=== PATIENT | male | born 1985 | race American Indian/Alaskan Native ===

== ENCOUNTER 2016-04-30 19:07 | Inpatient (IN) | payer BC ==
[2016-04-30] MEDS ORDERED: Sodium Chloride 0.9% 1,000 ML IV ONE ×2 (20:42→20:43)
[2016-04-30] MEDS ORDERED: Sodium Chloride 0.9% 1,000 ML ONE (20:55)
--- NOTE | 2016-04-30 21:03 | C.PDOC ---
History Of Present Illness 31 year old male pt presents to the ER with general abdominal pain from ETOH abuse for the last 4 weeks. Pt states he was laid off from work 4 weeks ago and began drinking ETOH since. Pt notes occasional vomiting, but denies diarrhea, nausea, SOB, or any other complaints. Pt notes increased depression and suicidal ideation, but denies any other drug abuse. Time Seen by Provider: 04/30/16 20:22 Chief Complaint (Nursing): Substance Abuse History Per: Patient History/Exam Limitations: no limitations Onset/Duration Of Symptoms: Days Current Symptoms Are (Timing): Still Present Suicide/Self Injury Attempted (Context): None Modifying Factor(s): Alcohol Severity: Mild Associated Symptoms: Suicidal Thoughts Past Medical History Reviewed: Historical Data, Nursing Documentation, Vital Signs Vital Signs: Last Vital Signs Temp 98.1 F 04/30/16 22:25 Pulse 96 H 04/30/16 22:25 Resp 18 04/30/16 22:25 BP 117/76 04/30/16 22:25 Pulse Ox 95 04/30/16 22:25 - Medical History PMH: Bronchitis, Diabetes, Emphysema, HTN, Pancreatitis Surgical History: No Surg Hx - [facility] DETOXIFICATION SERVICES FOR SUBSTANCE ABUSE TREATMENT (02/22/15) Family History: States: Unknown Family Hx - Social History Hx Tobacco Use: Yes Hx Alcohol Use: Yes Hx Substance Use: No - Immunization History Hx Tetanus Toxoid Vaccination: Yes Hx Influenza Vaccination: Yes Hx Pneumococcal Vaccination: No Review Of Systems Except As Marked, All Systems Reviewed And Found Negative. Respiratory: Negative for: Shortness of Breath Gastrointestinal: Positive for: Vomiting (Occasional), Abdominal Pain. Negative for: Nausea, Diarrhea Psych: Positive for: Suicidal ideation Physical Exam - Physical Exam Appears: Non-toxic, No Acute Distress Skin: Warm, Dry Head: Atraumatic, Normacephalic Eye(s): bilateral: Normal Inspection Chest: Symmetrical Cardiovascular: Rhythm Regular, No Murmur Respiratory: Normal Breath Sounds, No Rales, No Rhonchi, No Wheezing Gastrointestinal/Abdominal: Tenderness (Mild generalized abdominal tenderness), No Guarding, No Rebound Neurological/Psych: Oriented x3, Normal Speech, Normal Cognition Gait: Steady ED Course And Treatment - Laboratory Results Result Diagrams: 04/30/16 20:52 04/30/16 20:52 O2 Sat by Pulse Oximetry: 98 Pulse Ox Interpretation: Normal Progress Note: Medicated with pepcid zofran and fluids Medical Decision Making Medical Decision Making: Plan: -Labs -Pepcid -IV fluids -Zofran -Psychiatric consultation requested however will not see pt until alcohol is "down" Pt has mildly elevated lft's and lipase, but soft abd and tolerated fluids. Pt likely does not need admission for these labs. Disposition - Disposition Disposition Time: 01:31 Condition: FAIR - Clinical Impression Clinical Impression: Alcohol intoxication, Depression - Scribe Statement The provider has reviewed the documentation as recorded by the Scribe Jess telles All medical record entries made by the Scribe were at my direction and personally dictated by me. I have reviewed the chart and agree that the record accurately reflects my personal performance of the history, physical exam, medical decision making, and the department course for this patient. I have also personally directed, reviewed, and agree with the discharge instructions and disposition. Physician Patient Turnover Patient Signed Over To: Vianey Reid Handoff Comments: Pending lowering alcohol for PES evaluation
[2016-04-30 21:07] LABS: BASO # 0.1 K/uL (0.0-0.2); BASO % 1.5 % (0.0-2.0); EOS % 0.3 % (0.0-4.0); HEMATOCRIT 40.4 % (35.0-51.0); LYMPH # 1.2 K/uL (1.0-4.3); LYMPH % 30.7 % (20.0-40.0); MEAN CELL VOLUME 94.3 fL (80.0-94.0); MEAN CORPUSCULAR HEMOGLOBIN 31.8 pg (27.0-31.0); MEAN CORPUSCULAR HGB CONC 33.8 g/dL (33.0-37.0); MEAN PLATELET VOLUME 8.5 fL (7.2-11.7); MONO # 0.5 K/uL (0.0-0.8); MONO % 12.5 % (0.0-10.0); NRBC % 0.1 % (0.0-2.0); WHITE BLOOD COUNT 3.8 K/uL (4.8-10.8)
[2016-04-30 21:08] LABS: CHLORIDE 93 mmol/L (98-107)
[2016-04-30 21:09] LABS: SODIUM 141 mmol/L (132-148)
[2016-04-30 21:11] LABS: ALB/GLOB RATIO 1.3 (1.0-2.1); ALKALINE PHOSPHATASE 93 U/L (38-126); AST/SGOT 482 U/L (17-59); BILIRUBIN,TOTAL 0.9 mg/dL (0.2-1.3); BLOOD UREA NITROGEN 9 mg/dL (9-20); CARBON DIOXIDE 26 mmol/L (22-30); GFR AFRICAN-AMERICAN > 60; TOTAL PROTEIN 7.6 g/dL (6.3-8.3)
[2016-04-30 21:12] LABS: ALT/SGPT 313 U/L (21-72); CALCIUM 8.8 mg/dl (8.6-10.4); GLUCOSE,RANDOM 145 mg/dL (75-110)
[2016-04-30 21:23] LABS: ALCOHOL SERUM 330 mg/dl (0-10)
[2016-05-01] MEDS ORDERED: Iodixanol 320 MG/ML 100 ML BOTTLE IV ONE (02:51)
[2016-05-01] MEDS ORDERED: HYDROmorphone 1 mg/ml ISec IVP PRN (05:24)
[2016-05-01] MEDS: Dextrose 5%/0.45% NS 1,000 ML IV SCH ×4 (05:27→21:13)
[2016-05-01 05:40] LABS: RBC URINE 4 /hpf (0-3); URINE BILIRUBIN NEGATIVE (NEGATIVE); URINE BLOOD 1+ (NEGATIVE); URINE COLOR Yellow (YELLOW); URINE GLUCOSE (UA) NORMAL (Normal); URINE KETONE TRACE mg/dL (NEGATIVE); URINE LEUKOCYTE ESTERASE NEG Leu/uL (Negative); URINE PROTEIN 2+ mg/dL (NEGATIVE); WBC URINE < 1 /hpf (0-5)
--- NOTE | 2016-05-01 09:00 | CT ---
PROCEDURE: CT Abdomen and Pelvis with contrast HISTORY: pain, r/o pancreatitis COMPARISON: 07/26/2012 TECHNIQUE: Contrast dose: 100 mL. Radiation dose: Total exam DLP = 301.17 mGy-cm. FINDINGS: LOWER THORAX: Punctate calcifications in the right lung base. This could represent small granulomas. LIVER: Geographic hypoattenuation of the liver, likely consistent with hepatic steatosis. GALLBLADDER AND BILE DUCTS: Unremarkable. PANCREAS: Heterogeneous pancreas with surrounding stranding and fluid. No abscess. SPLEEN: Unremarkable. ADRENALS: Unremarkable. No mass. KIDNEYS AND URETERS: Unremarkable. No hydronephrosis. No solid mass. VASCULATURE: Unremarkable. No aortic aneurysm. BOWEL: Unremarkable. No obstruction. No gross mural thickening. Moderate to severe stool burden in the colon suggestive of constipation. APPENDIX: Normal appendix. PERITONEUM: Small amount of fluid seen in the pelvis on along the left paracolic gutter. LYMPH NODES: Scattered small lymph nodes in the retroperitoneum. BLADDER: Unremarkable. REPRODUCTIVE: Unremarkable. BONES: No acute fracture. OTHER FINDINGS: None. IMPRESSION: Heterogeneous pancreas with surrounding fluid and stranding, consistent with acute pancreatitis. Correlation with serum amylase and lipase levels recommended. No peripancreatic abscess. Small amount of fluid in the pelvis and along the left pericolic gutter noted. Hepatic steatosis. Moderate to severe stool burden in the colon. Please note that this report is in general agreement with the preliminary report provided by Jennifer.
[2016-05-01] MEDS: Enoxaparin 40 mg Syringe SC SCH (09:05)
--- NOTE | 2016-05-01 09:19 | CP.PCM.PN ---
Subjective - Date & Time of Evaluation Date of Evaluation: 05/01/16 Time of Evaluation: 10:00 - Subjective Subjective: Patient seen and examined in room. He is uncomfortable and shaking. He is asking for some medication for etoh withdrawl. He has a history of etoh abuse. He had relapsed about 2 months ago when he was let go from work. He has been drinking Vodka till he passed out everyday since then. He has been though etoh detox before. He is complaing of abdominal pain, nausea, but no vomiting. Objective - Vital Signs/Intake and Output Vital Signs (last 24 hours): Temp Pulse Resp BP Pulse Ox 98.3 F 73 18 131/71 95 05/01/16 05:52 05/01/16 05:52 05/01/16 06:03 05/01/16 05:52 05/01/16 05:52 - Medications Medications: Current Medications Enoxaparin Sodium (Lovenox) 40 mg SC DAILY [facility] Last Admin: 05/01/16 09:05 Dose: 40 mg Hydromorphone HCl (Dilaudid) 2 mg IVP Q4H PRN PRN Reason: pain Dextrose/Sodium Chloride (Dextrose 5%/0.45% Ns 1000 Ml) 1,000 mls @ 125 mls/hr IV .Q8H [facility] Last Admin: 05/01/16 05:27 Dose: 125 mls/hr Lorazepam (Ativan) 0 mg IVP Q6H PRN; Taper PRN Reason: Anxiety Stop: 05/06/16 18:15 Pantoprazole Sodium (Protonix Inj) 40 mg IVP DAILY [facility] Last Admin: 05/01/16 09:05 Dose: 40 mg - Constitutional Appears: In Acute Distress, Unkempt - Head Exam Head Exam: NORMAL INSPECTION - Eye Exam Eye Exam: Normal appearance, Nystagmus, PERRL. absent: Scleral icterus Pupil Exam: NORMAL ACCOMODATION - ENT Exam ENT Exam: Normal Exam - Neck Exam Neck Exam: Normal Inspection - Respiratory Exam Respiratory Exam: Clear to Ausculation Bilateral. absent: Rhonchi, Wheezes - Cardiovascular Exam Cardiovascular Exam: REGULAR RHYTHM, RRR, +S1, +S2. absent: Gallop, Rubs - GI/Abdominal Exam GI & Abdominal Exam: Soft, Normal Bowel Sounds. absent: Tenderness - Extremities Exam Extremities Exam: Normal Inspection. absent: Pedal Edema - Psychiatric Exam Psychiatric exam: Anxious, Depressed - Skin Skin Exam: Dry, Intact Assessment and Plan (1) Acute alcoholic pancreatitis Assessment & Plan: Patient admitted yesterday for pancreatitis and etoh withdrawl and use disorder. He is NPO still, GI consulted. CT of the abdomen and pelvis shows evidence for pancreatits. Lipase on admission over 1500 Follow up GI consult, given pain medication if needed. Status: Acute (2) Alcohol dependence Assessment & Plan: Psych consulted, see Dr. Harrington's note: CIWA protocol, Ativan taper and Ativan given prn thiamine and folic acid will be started. Monitor for signs of withdrawl and monitor his electrolytes as well. Status: Acute (3) Elevated LFTs Assessment & Plan: I have ordered Hepatits panel and will also order HIV Status: Acute (4) Prophylactic measure Assessment & Plan: Lovenox and protonix Status: Acute
[2016-05-01 14:26] LABS: BASO # 0.1 K/uL (0.0-0.2); BASO % 1.1 % (0.0-2.0); EOS % 0.3 % (0.0-4.0); HEMATOCRIT 38.2 % (35.0-51.0); LYMPH # 1.1 K/uL (1.0-4.3); LYMPH % 25.5 % (20.0-40.0); MEAN CELL VOLUME 94.3 fL (80.0-94.0); MEAN CORPUSCULAR HEMOGLOBIN 31.4 pg (27.0-31.0); MEAN CORPUSCULAR HGB CONC 33.3 g/dL (33.0-37.0); MEAN PLATELET VOLUME 8.6 fL (7.2-11.7); MONO # 0.6 K/uL (0.0-0.8); MONO % 12.6 % (0.0-10.0); RED CELL DISTRIBUTION WIDTH 15.5 % (11.5-14.5); WHITE BLOOD COUNT 4.5 K/uL (4.8-10.8)
[2016-05-01] MEDS ORDERED: Peg-Electrolyte Oral Soln 4L (Golytely) PO ONE (14:30)
[2016-05-01 14:38] LABS: CHLORIDE 93 mmol/L (98-107)
[2016-05-01 14:39] LABS: POTASSIUM 3.8 mmol/L (3.6-5.2); SODIUM 135 mmol/L (132-148)
[2016-05-01 14:41] LABS: ALB/GLOB RATIO 1.3 (1.0-2.1); AST/SGOT 488 U/L (17-59); BILIRUBIN,TOTAL 1.7 mg/dL (0.2-1.3); CARBON DIOXIDE 28 mmol/L (22-30); GFR AFRICAN-AMERICAN > 60; TOTAL PROTEIN 7.5 g/dL (6.3-8.3)
[2016-05-01 14:42] LABS: ALKALINE PHOSPHATASE 99 U/L (38-126); ALT/SGPT 308 U/L (21-72); BLOOD UREA NITROGEN 9 mg/dL (9-20); CALCIUM 9.3 mg/dl (8.6-10.4); GLUCOSE,RANDOM 165 mg/dL (75-110); MAGNESIUM 1.6 mg/dL (1.6-2.3); PHOSPHOROUS 3.9 mg/dL (2.5-4.5)
[2016-05-01] MEDS ORDERED: Bisacodyl 5mg EC Tab PO ONE (17:00)
--- NOTE | 2016-05-01 17:36 | PCM.PSYCH ---
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 Today patient was consulted because of history of alcohol abuse and depressed mood. Patient states that he has a long history of drinking. Since past few months he is drinking heavily. The patient reports of drinking 2-5 pints of vodka on a daily basis. Yesterday he consumed 2 pints of vodka, started developing abdominal pain and shakes, so he came to the hospital to get help. Patient reports of withdrawal symptoms including shakes, sweating, anxiety and headaches. Patient reports depressed mood, poor sleep and poor appetite. He also reports at times feelings of hopelessness but denies any suicidal ideation or homicidal ideation. He denies any racing of thoughts or flight of ideas. He also denies any auditory or visual hallucinations or any psychotic symptoms. Denies any other substance abuse. Past medical history h/o Pancreatitis, h/o bronchitis Current Medications: Active Medications Generic Name Dose Route Start Last Admin Trade Name Freq PRN Reason Stop Dose Admin Enoxaparin Sodium 40 mg 05/01/16 10:00 05/01/16 09:05 Lovenox SC 40 mg DAILY [facility] Administration Hydromorphone HCl 2 mg 05/01/16 05:24 05/01/16 13:27 Dilaudid IVP 2 mg Q4H PRN Administration pain Dextrose/Sodium Chloride 1,000 mls @ 125 mls/hr 05/01/16 05:30 05/01/16 13:31 Dextrose 5%/0.45% Ns 1000 Ml IV 125 mls/hr .Q8H [facility]W Administration Lorazepam 2 mg 05/01/16 11:54 05/01/16 16:31 Ativan IVP 05/06/16 11:55 2 mg Q6H PRN Administration Rigors Metoclopramide HCl 5 mg 05/01/16 16:30 05/01/16 16:25 Reglan IVP 5 mg ACHS [facility]THEW Administration Pantoprazole Sodium 40 mg 05/01/16 10:00 05/01/16 09:05 Protonix Inj IVP 40 mg DAILY [facility] Administration Past Psychiatric History - Past Psychiatric History Previous Treatment History: None Pertinent Medical Hx (Current Medical&Sleep Prob, Allergies): Allergies Allergy/AdvReac Type Severity Reaction Status Date / Time No Known Allergies Allergy Verified 04/30/16 19:27 Melatonin/Pyridoxine [Melatonin Extra Strength 5 mg-1 mg] 1 tab PO DAILY Review of Systems - Review of Systems All systems: reviewed and no additional remarkable complaints except - Psychiatric Psychiatric: Anxiety, Depression. absent: Auditory Hallucinations, Suicidal Ideation, Visual Hallucinations Mental Status Examination - Personal Presentation Personal Presentation: Looks stated age - Affect Affect: Constricted, Depressed - Motor Activity Motor Activity: Calm - Reliability in Providing Information Reliability in Providing Information: Good - Speech Speech: Organized - Mood Mood: Depressed, Anxious - Formal Thought Process Formal Thought Process: No Impairment - Obsessions/Compulsions Obsessions: No Compulsions: No - Cognitive Functions Orientation: Person, Place, Situation, Time Sensorium: Alert Attention/Concentration: Attentive Abstract Thinking: [place] Estimate of Intelligence: Below average Judgement: Imparied, as evidence by: Poor judgement, Intact, as evidence by: Insight regarding need for hospitalization - Risk Risk: Withdrawal, Diminished functioning - Strength & Assets Inventory Strength & Assets Inventory: Intelligence, Family support DSM 5 DX - DSM 5 DSM 5 Diagnosis: Alcohol use disorder severe Alcohol withdrawal uncomplicated Major depressive disorder recurrent moderate - Recommended/Plan of Treatment Treatment Recommendations and Plan of Treatment: Alcohol use disorder severe CBT Psychoeducation Supportive therapy, individual therapy Use TX for abstinence Alcohol withdrawal uncomplicated CBT Psychoeducation Supportive therapy, individual therapy Ativan when necessary Start Ativan taper Start folic acid/thiamine/multivitamin Major depressive disorder recurrent moderate CBT Psychoeducation Supportive therapy, individual therapy Start Zoloft 50 mg PO daily Start Trazodone 50 mg PO Q HS - Smoking Cessation Smoking Cessation Initiated: No
[2016-05-02] MEDS ORDERED: Dextrose 5%/0.9% NS 1,000 ML IV ONE (08:50)
[2016-05-02] MEDS ORDERED: Propofol 10 mg/ml Inj (20 ML) ONE ×2 (08:55→08:56)
[2016-05-02] MEDS ORDERED: Midazolam 2 MG/2 ML VIAL ONE (08:55)
[2016-05-02] MEDS ORDERED: Dextrose 5%/0.45% NS 1,000 ML IV ONE (09:13)
--- NOTE | 2016-05-02 09:54 | CON ---
DATE: 05/01/[address] Joby Santana to Dr. Violet Winters. I was called for GI consultation by the admitting MD. The patient is seen and fully examined at 04/09. All the available lab and radiology study results, current and previous medication list, cur rent and the previous medical events, allergies to medication lists were reviewed and the case was di scussed at length with the admitting medical team. HISTORY OF PRESENT ILLNESS: This is a 31-year-old male with a known history of alcoholism, was admit elizabeth to the hospital through the Emergency Room with the complaint of severe abdominal pain, fecal ret ention, severe constipation, postprandial abdominal distention with intermittent periods of rectal bl eeding and poor oral intake recently. The patient also experienced recent history of mild body weight loss. PAST MEDICAL HISTORY Including but not limited to: 1. Bronchitis. 2. Hypertension. 3. Diabetes mellitus. 4. Emphysema. 5. Peptic ulcer disease. 6. Previous episodes of pancreatitis. FAMILY HISTORY: Unknown. SOCIAL HISTORY: Positive for cigarette smoking, excessive alcohol intake. ALLERGY TO MEDICATION: Unknown. LABORATORY DATA: After being admitted to the hospital, the patient initially was found to have low w cecy blood cells and today, the day of consultation, white blood cells with 4.5 with subsequent drop of hemoglobin from 13.6, to 12.7, but with normal platelet count with elevated blood glucose level of 165 with total bilirubin 1.7 with increased AST to 488 and ALT to 308 with excessive increase of lip ase to 1581 with alcohol quantitative was 330. The patient had abdominal and pelvic CAT scan, report of films is seen with evidence of acute pancrea titis with moderate to severe stool retention in the colon. PHYSICAL EXAMINATION: GENERAL: A 31-year-old male, appeared to be more awake, alert, oriented. VITAL SIGNS: Afebrile with a pulse of 84, respiratory rate 20-22, blood pressure of 128/64. HEENT: Showed pale, dry oral mucoid membrane. Mild icteric sclerae. LYMPH NODES: No lymphadenitis or lymphadenopathy. LUNGS: Few scattered crepitation. Decreased air entry at bases. HEART: Positive S1 and S2 with increased rate mildly. ABDOMEN: Soft with diffuse tenderness and slight distention as well as small amount of ascites. No mass or organomegaly. No rebound tenderness or guarding. RECTAL: Positive tone, positive trace of fresh blood. EXTREMITIES: Without significant edema, clubbing or cyanosis. NEUROLOGIC: No reported new neurological deficit, sensory or motor. IMPRESSION: 1. Rectal bleeding with subsequent drop of hemoglobin and hematocrit with underlying diagnosis of ga strointestinal bleeding, upper versus lower. 2. Change of bowel movement habit with severe constipation of unclear etiology. 3. Acute pancreatitis, most likely alcohol induced, to rule out possible biliary pancreatitis, less likely. 4. Abnormal liver function tests secondary to above. 5. Known history of hypertension, diabetes mellitus, emphysema with bronchitis as well as previous h istory of pancreatitis. SUGGESTION: 1. Continue current management. 2. Cancer markers. 3. Endoscopic evaluation of the GI tract when the patient is more stable clinically. Thank you for letting me participate in your patient's case management and further evaluation to tona barrios. 1. Flagyl IV. 2. Proton pump inhibitors. 3. Reglan IV. 4. Repeat serum lipase and amylase level. Joby Santana MD cc: 14 TT: 05/02/2016 09:53:43 Confirmation # [id number] Dictation # [id number] gerard
[2016-05-02 11:28] LABS: MONO # 0.5 K/uL (0.0-0.8)
[2016-05-02 11:38] LABS: BASO % 0.8 % (0.0-2.0); EOS % 0.2 % (0.0-4.0); LYMPH # 0.8 K/uL (1.0-4.3); LYMPH % 22.2 % (20.0-40.0); MEAN CELL VOLUME 94.8 fL (80.0-94.0); MEAN CORPUSCULAR HEMOGLOBIN 31.1 pg (27.0-31.0); MEAN CORPUSCULAR HGB CONC 32.8 g/dL (33.0-37.0); MEAN PLATELET VOLUME 9.4 fL (7.2-11.7); NRBC % 0.2 % (0.0-2.0); WHITE BLOOD COUNT 3.5 K/uL (4.8-10.8)
[2016-05-02 11:51] LABS: CHLORIDE 89 mmol/L (98-107); POTASSIUM 3.5 mmol/L (3.6-5.2); SODIUM 132 mmol/L (132-148)
[2016-05-02 11:53] LABS: ALB/GLOB RATIO 1.3 (1.0-2.1); ALKALINE PHOSPHATASE 101 U/L (38-126); AST/SGOT 426 U/L (17-59); BILIRUBIN,TOTAL 1.4 mg/dL (0.2-1.3); CARBON DIOXIDE 27 mmol/L (22-30); GFR AFRICAN-AMERICAN > 60; TOTAL PROTEIN 7.3 g/dL (6.3-8.3)
[2016-05-02 11:54] LABS: ALT/SGPT 289 U/L (21-72); BLOOD UREA NITROGEN 6 mg/dL (9-20); CALCIUM 9.3 mg/dl (8.6-10.4); GLUCOSE,RANDOM 224 mg/dL (75-110); MAGNESIUM 1.6 mg/dL (1.6-2.3)
[2016-05-02] MEDS: Enoxaparin 40 mg Syringe SC SCH (12:24)
[2016-05-02] MEDS: Multiple Vitamins Tab PO SCH (12:25)
[2016-05-02] MEDS ORDERED: Potassium Chloride 20 mEq ER Tab PO ONE (13:00)
[2016-05-02] MEDS: Dextrose 5%/0.45% NS 1,000 ML IV SCH ×2 (13:34→16:06)
[2016-05-02] MEDS: Albuterol-Ipratrop 3 mg / 0.5 (3 ml) UD INH SCH (14:07)
[2016-05-03] MEDS ORDERED: Aluminum Hydroxide/Magnesium Hydroxide Susp (30 mL) PO PRN (00:01)
[2016-05-03] MEDS: Dextrose 5%/0.45% NS 1,000 ML IV SCH ×2 (03:15→15:30)
[2016-05-03] MEDS: Albuterol-Ipratrop 3 mg / 0.5 (3 ml) UD INH SCH ×5 (04:25→19:22)
[2016-05-03 07:21] LABS: AMYLASE 148 U/L (30-110)
[2016-05-03] MEDS: Multiple Vitamins Tab PO SCH (09:41)
[2016-05-03] MEDS: Enoxaparin 40 mg Syringe SC SCH (10:59)
[2016-05-03] MEDS ORDERED: Peg-Electrolyte Oral Soln 4L (Golytely) PO ONE (11:00)
--- NOTE | 2016-05-03 11:18 | PN ---
DATE: 05/03/2016 LOCATION: 550, bed A. SUBJECTIVE: This is a 31-year-old male seen and examined in rounds, post-colonoscopy yesterday for r epeat colonoscopy at a.m. due to retained fecal material and fecal impaction, had been complaining of slight generalized weakness with intermittent periods of mild wheezing, disappeared completely this morning. No reported active bleeding. The entire chart is reviewed, including but not limited to th e most recent lab and radiology study results, current and previous medication list, current and the previous medical events have discussed with the staff at length on the floor and the patient had rece nt PT and PTT were reported to be normal, but still has low potassium and low chloride with increased blood glucose level to 270 and mildly elevated total bilirubin with increased AST more than ALT steven cative of alcoholic liver disease. It has to be mentioned that the patient's CEA level excessively e levated to 43 with increased CA 19-9 to 185 raising the question of possible neoplastic lesion. Amyl ase level today is still elevated to 148 with lipase still elevated to . PHYSICAL EXAMINATION: GENERAL: A 31-year-old male, awake, alert, oriented and somewhat tolerating the liquid diet. VITAL SIGNS: Afebrile with heart rate of 72, respiratory rate 20-22 with blood pressure of 148/80. HEENT: Showed pale, dry oral mucoid membrane. Nonicteric sclerae. LUNGS: Few scattered crepitation, decreased air entry at bases. HEART: Positive S1 and S2. ABDOMEN: Soft. Bowel sounds are present with mild generalized tenderness. No mass or organomegaly. No rebound tenderness or guarding, but with abdominal distention. EXTREMITIES: Without significant edema, clubbing or cyanosis. NEUROLOGIC: No new reported neurological deficits, sensory or motor. IMPRESSION: 1. Acute pancreatitis, most likely alcohol induced. 2. Elevated cancer markers to rule out occult gastrointestinal malignancy. 3. Fecal impaction, disimpaction performed with patient for repeat colonoscopy after adequate prepar ation. 4. Peptic ulcer disease with possible diabetic gastroparesis. 5. Electrolyte imbalance with hypokalemia, most likely secondary to above. SUGGESTIONS: 1. Continue current management. 2. Add potassium IV. 3. Repeat colonoscopy for a.m. Due to the patient's persistent abnormal liver function test, MRCP to be kept in mind. Joby Santana MD cc: 14 TT: 05/03/2016 11:17:49 Confirmation # [id number] Dictation # [id number] an
[2016-05-03] MEDS ORDERED: (Novolog) Insulin Aspart, Recombinant 100 u/ml 10 ml vial SC SCH (16:30)
[2016-05-03] MEDS ORDERED: Bisacodyl 5mg EC Tab PO ONE (17:00)
[2016-05-03 23:50] VITALS: RESP 20
[2016-05-04] MEDS: Albuterol-Ipratrop 3 mg / 0.5 (3 ml) UD INH SCH ×3 (01:16→14:01)
[2016-05-04] MEDS: Dextrose 5%/0.45% NS 1,000 ML IV SCH (03:15)
[2016-05-04] MEDS: (Novolog) Insulin Aspart, Recombinant 100 u/ml 10 ml vial SC SCH ×3 (08:19→17:54)
--- NOTE | 2016-05-04 09:10 | HP ---
A 31-year-old man admitted to the hospital with chief complaint of severe abdominal pain, alcohol int oxication, weakness, fatigue. The patient works ____ history of alcohol problem on and off for the l ast few years. PHYSICAL EXAMINATION: GENERAL: The patient is awake, alert. VITAL SIGNS: Temperature 98, pulse 90. HEENT: Within normal limits. NECK: Supple. CHEST: Symmetrical. HEART: Regular. ABDOMEN: Soft. EXTREMITIES: No edema. The patient has tremors of the extremities. The patient is here for alcoholic pancreatitis, ____ possible ____ withdrawal. At this point, patien t to get bed rest, IV fluids, supportive care, pain medication. Violet Winters MD cc: [id number] TT: 05/01/2016 12:12:37 [place]
[2016-05-04 09:14] LABS: BASO % 0.9 % (0.0-2.0); EOS % 0.3 % (0.0-4.0); HEMATOCRIT 37.9 % (35.0-51.0); LYMPH # 0.8 K/uL (1.0-4.3); LYMPH % 24.4 % (20.0-40.0); MEAN CELL VOLUME 94.9 fL (80.0-94.0); MEAN CORPUSCULAR HEMOGLOBIN 31.8 pg (27.0-31.0); MEAN CORPUSCULAR HGB CONC 33.5 g/dL (33.0-37.0); MONO # 0.5 K/uL (0.0-0.8); MONO % 15.1 % (0.0-10.0); NRBC % 0.1 % (0.0-2.0); RED CELL DISTRIBUTION WIDTH 15.3 % (11.5-14.5); WHITE BLOOD COUNT 3.3 K/uL (4.8-10.8)
[2016-05-04 09:21] LABS: CHLORIDE 92 mmol/L (98-107); POTASSIUM 3.6 mmol/L (3.6-5.2); SODIUM 136 mmol/L (132-148)
[2016-05-04 09:23] LABS: GFR AFRICAN-AMERICAN > 60
[2016-05-04 09:24] LABS: ALB/GLOB RATIO 1.3 (1.0-2.1); ALKALINE PHOSPHATASE 96 U/L (38-126); ALT/SGPT 302 U/L (21-72); AST/SGOT 367 U/L (17-59); BILIRUBIN,TOTAL 1.2 mg/dL (0.2-1.3); BLOOD UREA NITROGEN 3 mg/dL (9-20); CALCIUM 9.2 mg/dl (8.6-10.4); CARBON DIOXIDE 29 mmol/L (22-30); GLUCOSE,RANDOM 172 mg/dL (75-110); TOTAL PROTEIN 6.9 g/dL (6.3-8.3)
[2016-05-04] MEDS: Multiple Vitamins Tab PO SCH (09:57)
--- NOTE | 2016-05-04 09:59 | CP.PCM.PN ---
Subjective - Date & Time of Evaluation Date of Evaluation: 05/04/16 Time of Evaluation: 07:40 - Subjective Subjective: PGY2 Medicine Note - Dr. Brewer's Service: Patient seen and examined at bedside this AM. Patient reports mild abdominal pain. Nausea, vomiting and diarrhea have resolved. Patient plans to go to AA meetings by his house in [place]. Objective - Vital Signs/Intake and Output Vital Signs (last 24 hours): Temp Pulse Resp BP Pulse Ox 98.4 F 70 20 130/78 100 05/03/16 23:49 05/04/16 00:00 05/03/16 23:49 05/03/16 23:49 05/03/16 23:49 - Medications Medications: Current Medications Al Hydrox/Mg Hydrox/Simethicone (Maalox 30 Ml) 30 ml PO BID PRN PRN Reason: Indigestion / Heartburn Last Admin: 05/03/16 00:06 Dose: 30 ml Albuterol/Ipratropium (Duoneb 3 Mg/0.5 Mg (3 Ml) Ud) 3 ml INH RQ6 [facility]W Last Admin: 05/04/16 08:27 Dose: 3 ml Enoxaparin Sodium (Lovenox) 40 mg SC DAILY [facility] Last Admin: 05/03/16 10:59 Dose: Not Given Folic Acid (Folic Acid) 1 mg PO DAILY [facility] Last Admin: 05/03/16 09:41 Dose: 1 mg Hydromorphone HCl (Dilaudid) 2 mg IVP Q4H PRN PRN Reason: pain Dextrose/Sodium Chloride (Dextrose 5%/0.45% Ns 1000 Ml) 1,000 mls @ 80 mls/hr IV .[id number] [facility] Last Admin: 05/04/16 03:15 Dose: Not Given Insulin Aspart (Novolog) 0 unit SC ACHS [facility]THEW PRN Reason: Protocol Last Admin: 05/04/16 08:19 Dose: Not Given Lorazepam (Ativan) 2 mg IVP Q6H PRN PRN Reason: Rigors Stop: 05/06/16 11:55 Last Admin: 05/03/16 00:03 Dose: 2 mg Lorazepam (Ativan) 1 mg PO Q6 [facility]W PRN Reason: Taper Stop: 05/06/16 17:44 Last Admin: 05/04/16 05:50 Dose: 1 mg Metoclopramide HCl (Reglan) 5 mg IVP ACHS [facility] Last Admin: 05/03/16 21:35 Dose: 5 mg Multivitamins (Hexavitamin) 1 tab PO DAILY [facility] Last Admin: 05/03/16 09:41 Dose: 1 tab Pantoprazole Sodium (Protonix Inj) 40 mg IVP DAILY [facility] Last Admin: 05/03/16 09:41 Dose: 40 mg Sertraline HCl (Zoloft) 50 mg PO DAILY [facility] Last Admin: 05/03/16 09:41 Dose: 50 mg Thiamine HCl (Vitamin B1 Tab) 100 mg PO DAILY [facility] Last Admin: 05/03/16 09:41 Dose: 100 mg Trazodone HCl (Desyrel) 50 mg PO HS PRN PRN Reason: Insomnia Last Admin: 05/03/16 21:35 Dose: 50 mg - Labs Labs: 05/04/16 09:09 05/04/16 09:09 PT 11.7 SECONDS (9.7-12.2) 05/03/16 06:58 INR 1.0 05/03/16 06:58 APTT 31 SECONDS (21-34) 05/03/16 06:58 - Constitutional Appears: Non-toxic, No Acute Distress - Head Exam Head Exam: NORMAL INSPECTION - Eye Exam Eye Exam: EOMI - ENT Exam ENT Exam: Mucous Membranes Moist - Respiratory Exam Respiratory Exam: Clear to Ausculation Bilateral, NORMAL BREATHING PATTERN. absent: Rales, Rhonchi, Wheezes - Cardiovascular Exam Cardiovascular Exam: REGULAR RHYTHM, +S1, +S2. absent: Gallop, Rubs, Murmur - GI/Abdominal Exam GI & Abdominal Exam: Soft, Normal Bowel Sounds. absent: Firm, Guarding, Tenderness - Extremities Exam Extremities Exam: absent: Pedal Edema - Neurological Exam Neurological Exam: Alert, Awake, Oriented x3 - Psychiatric Exam Psychiatric exam: Normal Affect, Normal Mood - Skin Skin Exam: Normal Color, Warm Assessment and Plan - Assessment and Plan (Free Text) Assessment: (1) Acute alcoholic pancreatitis Assessment & Plan: CT of the abdomen and pelvis shows evidence for pancreatits. NPO for colonoscopy but was on liquid diet GI consult - Dr. Santana - help appreciated Lipase on admission over 1500 Colonoscopy scheduled for today Status: Acute (2) Alcohol dependence Assessment & Plan: Psych consulted, see Dr. Harrington's note: CIWA protocol, Ativan taper and Ativan given prn thiamine and folic acid Monitor for signs of withdrawl and monitor his electrolytes as well. Status: Acute (3) Elevated LFTs Assessment & Plan: Hepatitis and HIV negative Improving slowly Status: Acute (4) Prophylactic measure Assessment & Plan: Lovenox and protonix Status: Acute
[2016-05-04] MEDS ORDERED: Lactated Ringer's 500 ML IV ONE (12:21)
[2016-05-04] MEDS ORDERED: Propofol 10 mg/ml Inj (20 ML) ONE (12:22)
[2016-05-04] MEDS ORDERED: Lactated Ringer's 1,000 ML IV SCH (12:45)
[2016-05-04 14:06] LABS: AMYLASE 150 U/L (30-110)
[2016-05-04 15:53] VITALS: BP 130/87; PULSE 74; TEMP 98.3; O2SAT 97
[2016-05-04] MEDS ORDERED: Pneumococcal 23-Valent Vaccine IM ONE (17:06)
[2016-05-04] MEDS ORDERED: Influenza Virus Vaccine 45 mcg/0.5 ml Syr (36 months - 7 yrs) IM ONE (17:06)
[2016-05-04] MEDS ORDERED: Influenza Virus Vaccine 45 mcg/0.5 ml Syr IM ONE (17:35)
--- NOTE | 2016-05-05 08:07 | CARD ---
APPROVED REPORT EKG Measurement Heart [id number] <Conclusion> Normal sinus rhythm Normal ECG
[2016-05-05] MEDS ORDERED: Pantoprazole 40 mg EC Tab PO SCH (10:00)
== END 2016-05-04 18:30 | disposition home or self-care (01) | DRG 439 ==
LOC: SUPCPDRO 19:07 → C.ER 19:07 → C.5T 05-01 05:18
PROVIDERS: ADMIT Internal Medicine Pulmonary Disease; ATTEND Internal Medicine Pulmonary Disease
PROC: HZ56ZZZ Individual Psychotherapy for Substance Abuse Treatment, Psychoeducation (ICD-10-PCS; principal; 2016-05-01)
PROC: HZ59ZZZ Individual Psychotherapy for Substance Abuse Treatment, Supportive (ICD-10-PCS; 2016-05-01)
PROC: HZ2ZZZZ Detoxification Services for Substance Abuse Treatment (ICD-10-PCS; 2016-05-01)
PROC: GZ56ZZZ Individual Psychotherapy, Supportive (ICD-10-PCS; 2016-05-01)
PROC: 0DCE8ZZ Extirpation of Matter from Large Intestine, Via Natural or Artificial Opening Endoscopic (ICD-10-PCS; 2016-05-02)
PROC: 0DBM8ZX Excision of Descending Colon, Via Natural or Artificial Opening Endoscopic, Diagnostic (ICD-10-PCS; 2016-05-04)
DX: K85.20 Alcohol induced acute pancreatitis without necrosis or infection (principal); F10.230 Alcohol dependence with withdrawal, uncomplicated; F33.1 Major depressive disorder, recurrent, moderate; K92.2 Gastrointestinal hemorrhage, unspecified; J43.9 Emphysema, unspecified; B96.81 Helicobacter pylori [H. pylori] as the cause of diseases classified elsewhere; K27.9 Peptic ulcer, site unspecified, unspecified as acute or chronic, without hemorrhage or perforation; I10 Essential (primary) hypertension; F17.210 Nicotine dependence, cigarettes, uncomplicated; E11.9 Type 2 diabetes mellitus without complications; E87.6 Hypokalemia; F41.9 Anxiety disorder, unspecified; J40 Bronchitis, not specified as acute or chronic; K56.41 Fecal impaction; K29.50 Unspecified chronic gastritis without bleeding; K58.9 Irritable bowel syndrome, unspecified; K64.8 Other hemorrhoids; K60.2 Anal fissure, unspecified

== ENCOUNTER 2017-01-23 00:38 | Emergency (ER) | payer SELFPAY ==
[2017-01-23] MEDS ORDERED: Sodium Chloride 0.9% 1,000 ML IV STA (01:15)
--- NOTE | 2017-01-23 01:20 | C.PDOC ---
History Of Present Illness 32yo male, presents to ED stating he has been drinking alcohol daily for the past month and wishes to get detox. Patient reports associated abdominal pain, and states he has had similar symptoms before. Also reports some episodes of bloody stools. He states he has been unable to eat or drink. of note, patient states he does not take any medications daily. No other medical complaints. Time Seen by Provider: 01/23/17 00:50 Chief Complaint (Nursing): Substance Abuse History Per: Patient History/Exam Limitations: no limitations Onset/Duration Of Symptoms: Persistent Current Symptoms Are (Timing): Still Present Modifying Factor(s): Alcohol Past Medical History Reviewed: Historical Data, Nursing Documentation, Vital Signs Vital Signs: Last Vital Signs Temp 98.3 F 01/23/17 00:48 Pulse 83 01/23/17 04:06 Resp 16 01/23/17 04:06 BP 135/93 H 01/23/17 04:06 Pulse Ox 95 01/23/17 04:06 - Medical History PMH: Bronchitis, Diabetes, Emphysema, HTN, Pancreatitis Denies: Hepatitis, HIV, Chronic Kidney Disease, Seizures, Sexually Transmitted Disease - [facility] Procedures DETOXIFICATION SERVICES FOR SUBSTANCE ABUSE TREATMENT (05/01/16) EXCISION OF DESCENDING COLON, ENDO, DIAGN (05/01/16) EXTIRPATION OF MATTER FROM LARGE INTESTINE, ENDO (05/01/16) INDIV PSYCHOTHERAPY FOR SUBSTANCE ABUSE TREATMENT, SUPPORT (05/01/16) INDIV PSYCHOTHERAPY FOR SUBSTANCE ABUSE, PSYCHOEDUCATION (05/01/16) INDIVIDUAL PSYCHOTHERAPY, SUPPORTIVE (05/01/16) Family History: States: Unknown Family Hx - Social History Hx Tobacco Use: Yes Hx Alcohol Use: Yes Hx Substance Use: No - Immunization History Hx Tetanus Toxoid Vaccination: Yes Hx Influenza Vaccination: Yes Hx Pneumococcal Vaccination: No Review Of Systems Except As Marked, All Systems Reviewed And Found Negative. Gastrointestinal: Positive for: Abdominal Pain, Hematochezia Physical Exam - Physical Exam Skin: Normal Color Head: Atraumatic Neck: Supple Gastrointestinal/Abdominal: Soft, Tenderness (diffuse epigastric tenderness), Distention (mild), No Guarding, No Rebound Neurological/Psych: Oriented x3 ED Course And Treatment - Laboratory Results Result Diagrams: 01/23/17 01:22 01/23/17 01:22 O2 Sat by Pulse Oximetry: 96 (RA) Pulse Ox Interpretation: Normal Medical Decision Making Medical Decision Making: Plan: -- Labs -- Pepcid 20 mg IVP -- IV Fluids Disposition - Disposition Disposition: HOME/ ROUTINE Disposition Time: 06:15 Condition: STABLE Prescriptions: chlordiazePOXIDE [Chlordiazepoxide HCl] 50 mg PO TID #20 cap Lansoprazole [Prevacid] 30 mg PO DAILY #20 capsule.dr Forms: [employer] (Citizen Of [place]) - Clinical Impression Clinical Impression: Alcoholic gastritis, Alcoholism - Scribe Statement The provider has reviewed the documentation as recorded by the Sujatha Fontaine Provider Attestation: All medical record entries made by the Sujatha were at my direction and personally dictated by me. I have reviewed the chart and agree that the record accurately reflects my personal performance of the history, physical exam, medical decision making, and the department course for this patient. I have also personally directed, reviewed, and agree with the discharge instructions and disposition.
[2017-01-23] MEDS ORDERED: Sodium Chloride 0.9% 1,000 ML ONE (01:24)
[2017-01-23 01:28] LABS: BASO # 0.2 K/uL (0.0-0.2); BASO % 3.3 % (0.0-2.0); EOS # 0.2 K/uL (0.0-0.7); EOS % 4.5 % (0.0-4.0); HEMATOCRIT 41.6 % (35.0-51.0); LYMPH # 1.2 K/uL (1.0-4.3); LYMPH % 22.2 % (20.0-40.0); MEAN CELL VOLUME 94.4 fL (80.0-94.0); MEAN CORPUSCULAR HGB CONC 33.8 g/dL (33.0-37.0); MEAN PLATELET VOLUME 8.7 fL (7.2-11.7); MONO # 0.5 K/uL (0.0-0.8); MONO % 9.2 % (0.0-10.0); NRBC % 0.2 % (0.0-2.0); PLATELET COUNT 140 K/uL (130-400); RED CELL DISTRIBUTION WIDTH 14.8 % (11.5-14.5); WHITE BLOOD COUNT 5.4 K/uL (4.8-10.8)
[2017-01-23 01:38] LABS: ALKALINE PHOSPHATASE 116 U/L (38-126); ALT/SGPT 293 U/L (21-72); AMYLASE 185 U/L (30-110); AST/SGOT 337 U/L (17-59); BILIRUBIN,TOTAL 0.9 mg/dL (0.2-1.3); BLOOD UREA NITROGEN 10 mg/dL (9-20); CALCIUM 8.3 mg/dl (8.6-10.4); CARBON DIOXIDE 24 mmol/L (22-30); CHLORIDE 99 mmol/L (98-107); GFR AFRICAN-AMERICAN > 60; GLUCOSE,RANDOM 254 mg/dL (75-110); POTASSIUM 3.6 mmol/L (3.6-5.2); SODIUM 139 mmol/L (132-148); TOTAL PROTEIN 8.5 g/dL (6.3-8.3)
[2017-01-23 01:50] LABS: NEUTROPHIL 51 % (50-75); REACTIVE LYMPHOCYTES 2 % (0-0); TOTAL CELLS COUNTED 100
[2017-01-23 01:55] LABS: ALCOHOL SERUM 355 mg/dl (0-10)
[2017-01-23 05:56] LABS: RBC URINE 6 /hpf (0-3); URINE BILIRUBIN NEGATIVE (NEGATIVE); URINE BLOOD 1+ (NEGATIVE); URINE COLOR Yellow (YELLOW); URINE GLUCOSE (UA) 3+ mg/dL (Normal); URINE KETONE TRACE mg/dL (NEGATIVE); URINE LEUKOCYTE ESTERASE NEG Leu/uL (Negative); URINE PROTEIN 2+ mg/dL (NEGATIVE); WBC URINE 1 /hpf (0-5)
[2017-01-23 06:08] VITALS: O2SAT 96
[2017-01-23 06:22] VITALS: BP 145/88; PULSE 84; RESP 19; TEMP 97.5
== END 2017-01-23 06:26 | disposition home or self-care (01) ==
LOC: C.ER 00:38
DX: K29.20 Alcoholic gastritis without bleeding (principal); F10.20 Alcohol dependence, uncomplicated; E11.9 Type 2 diabetes mellitus without complications; I10 Essential (primary) hypertension; Z87.891 Personal history of nicotine dependence
CPT/HCPCS: 80053; 81001; 82150; 85025; 96361; 96374; 99285; G0480; J7040

== ENCOUNTER 2017-05-12 17:14 | Emergency (ER) | payer MEDICAID ==
--- NOTE | 2017-05-12 17:32 | C.PDOC ---
History Of Present Illness 32yo male, presents to ED with complaints of alcohol withdrawal and associated nausea. He reports his last drink was last night, denies any other drug use. He also denies any abdominal pain, seizures. Patient also denies prior history of alcohol withdrawal delirium. No other complaints. CO ETOH WITHDRAWAL. LAST DRINK LAST NIGHT. CO NAUSEA. NO SZ, ABD PAIN. DENIES PRIOR HO DT EXAM MILD DIST NONTOXIC HEENT NO TONGUE FASCICULATIONS NEURO AO3, NO TREMOR PSYCH CALM COOPERATIVE NO ACUTE INTOX WARM DRY CV RRR SINUS TACH REMAINDER NEG Time Seen by Provider: 05/12/17 17:25 Chief Complaint (Nursing): Substance Abuse History Per: Patient History/Exam Limitations: no limitations Associated Symptoms: denies: Suicidal Thoughts, Suicidal Plan Past Medical History Reviewed: Historical Data, Nursing Documentation, Vital Signs Vital Signs: Last Vital Signs Temp 98 F 05/12/17 17:21 Pulse 102 H 05/12/17 17:21 Resp 18 05/12/17 17:21 BP 129/85 05/12/17 17:21 Pulse Ox 99 05/12/17 17:56 - Medical History PMH: Bronchitis, Diabetes, Emphysema, HTN, Pancreatitis Denies: Hepatitis, HIV, Chronic Kidney Disease, Seizures, Sexually Transmitted Disease Surgical History: No Surg Hx - [facility] Procedures DETOXIFICATION SERVICES FOR SUBSTANCE ABUSE TREATMENT (05/01/16) EXCISION OF DESCENDING COLON, ENDO, DIAGN (05/01/16) EXTIRPATION OF MATTER FROM LARGE INTESTINE, ENDO (05/01/16) INDIV PSYCHOTHERAPY FOR SUBSTANCE ABUSE TREATMENT, SUPPORT (05/01/16) INDIV PSYCHOTHERAPY FOR SUBSTANCE ABUSE, PSYCHOEDUCATION (05/01/16) INDIVIDUAL PSYCHOTHERAPY, SUPPORTIVE (05/01/16) Family History: States: Unknown Family Hx - Social History Hx Tobacco Use: Yes Hx Alcohol Use: Yes Hx Substance Use: No - Immunization History Hx Tetanus Toxoid Vaccination: No Hx Influenza Vaccination: No Hx Pneumococcal Vaccination: No Review Of Systems Except As Marked, All Systems Reviewed And Found Negative. Constitutional: Negative for: Fever, Chills Gastrointestinal: Positive for: Nausea. Negative for: Vomiting, Abdominal Pain Neurological: Negative for: Seizures, Other (DT) Psych: Positive for: Withdrawal (alcohol withdrawal) Physical Exam - Physical Exam Appears: Non-toxic, Other (mild distress) Skin: Normal Color, Warm, Dry Head: Atraumatic, Normacephalic Eye(s): bilateral: Normal Inspection, PERRL, EOMI Nose: Normal Oral Mucosa: Moist Tongue: No Other (fasciculations) Neck: Normal ROM, Supple Chest: Symmetrical Cardiovascular: Rhythm Regular (tachycardic) Respiratory: Normal Breath Sounds Gastrointestinal/Abdominal: Normal Exam, Soft, No Tenderness Back: Normal Inspection Extremity: Normal ROM, No Deformity Neurological/Psych: Oriented x3, Normal Speech, Normal Cognition, Normal Motor, Normal Sensation, Other (no tremors noted) Gait: Steady ED Course And Treatment O2 Sat by Pulse Oximetry: 99 (RA) Pulse Ox Interpretation: Normal Reevaluation Time: 18:23 Reassessment Condition: Improved (NO DETOX BEDS. APPEARS COMFORTABLE NAD) Medical Decision Making Medical Decision Making: Plan: -- Librium 100 mg PO -- Zofran 4mg PO Disposition Counseled Patient/Family Regarding: Diagnosis, Need For Followup, Rx Given - Disposition Referrals: YOUR,PMD [Other] Disposition: HOME/ ROUTINE Disposition Time: 18:24 Condition: IMPROVED Prescriptions: Ondansetron [Zofran Odt] 4 mg PO TID PRN #9 odt PRN Reason: Nausea/Vomiting Instructions: Alcohol Withdrawal (DC), Hyperglycemia, Adult (DC) Forms: [employer] ([place]ian) - Clinical Impression Clinical Impression: Alcohol withdrawal, Uncontrolled diabetes mellitus - Scribe Statement The provider has reviewed the documentation as recorded by the Scribe (Edna Fontaine) Provider Attestation: All medical record entries made by the Scribe were at my direction and personally dictated by me. I have reviewed the chart and agree that the record accurately reflects my personal performance of the history, physical exam, medical decision making, and the department course for this patient. I have also personally directed, reviewed, and agree with the discharge instructions and disposition.
[2017-05-12 18:43] VITALS: BP 141/89; PULSE 103; RESP 20; TEMP 98.3; O2SAT 100
== END 2017-05-12 18:54 | disposition home or self-care (01) ==
LOC: C.ER 17:14
DX: F10.239 Alcohol dependence with withdrawal, unspecified (principal); E11.9 Type 2 diabetes mellitus without complications

== ENCOUNTER 2017-10-05 13:54 | Inpatient (IN) | payer MEDICAID ==
[2017-10-05] MEDS ORDERED: Sodium Chloride 0.9% 1,000 ML IV ONE ×2 (14:56→16:46)
--- NOTE | 2017-10-05 15:06 | C.PDOC ---
History Of Present Illness Patient is a 32 y/o M with hx of alcohol abuse, presenting requesting detox. He reports that he has not had a drink in 3 days. He reports that he feels like he is withdrawing. Reports nausea and generalized lethargy. Reports that he has not eaten much recently because he has been on a drinking binge x 3 weeks. Reports non-compliance with insulin Time Seen by Provider: 10/05/17 14:37 Chief Complaint (Nursing): Substance Abuse Past Medical History Vital Signs: Last Vital Signs Temp 98.2 F 10/05/17 20:23 Pulse 102 H 10/05/17 20:23 Resp 16 10/05/17 20:23 BP 132/74 10/05/17 20:23 Pulse Ox 100 10/05/17 20:23 - Medical History PMH: Bronchitis, Diabetes, Emphysema, HTN, Pancreatitis Denies: Hepatitis, HIV, Chronic Kidney Disease, Seizures, Sexually Transmitted Disease - [facility] Procedures DETOXIFICATION SERVICES FOR SUBSTANCE ABUSE TREATMENT (05/01/16) EXCISION OF DESCENDING COLON, ENDO, DIAGN (05/01/16) EXTIRPATION OF MATTER FROM LARGE INTESTINE, ENDO (05/01/16) INDIV PSYCHOTHERAPY FOR SUBSTANCE ABUSE TREATMENT, SUPPORT (05/01/16) INDIV PSYCHOTHERAPY FOR SUBSTANCE ABUSE, PSYCHOEDUCATION (05/01/16) INDIVIDUAL PSYCHOTHERAPY, SUPPORTIVE (05/01/16) Family History: States: Unknown Family Hx - Social History Hx Tobacco Use: Yes Hx Alcohol Use: Yes Hx Substance Use: No - Immunization History Hx Tetanus Toxoid Vaccination: No Hx Influenza Vaccination: Yes Hx Pneumococcal Vaccination: Yes Review Of Systems Constitutional: Positive for: Malaise. Negative for: Fever, Chills Cardiovascular: Negative for: Chest Pain, Palpitations, Edema, Light Headedness Respiratory: Negative for: Cough, Shortness of Breath, SOB with Excertion, Wheezing Gastrointestinal: Positive for: Nausea. Negative for: Vomiting, Abdominal Pain , Diarrhea, Constipation Genitourinary: Negative for: Dysuria Neurological: Negative for: Weakness, Numbness, Incoordination, Change in Speech , Confusion, Seizures, Altered Mental Status, Headache, Dizziness Psych: Negative for: Anxiety, Depression Physical Exam - Physical Exam Appears: Well, Non-toxic, No Acute Distress Skin: Normal Color, Warm, Dry Head: Atraumatic, Normacephalic Eye(s): bilateral: Normal Inspection, PERRL, EOMI Oral Mucosa: Dry Tongue: Other (no fasciculations, fruity odor to breath) Cardiovascular: Other (tachycardic) Respiratory: Normal Breath Sounds Gastrointestinal/Abdominal: Normal Exam Back: Normal Inspection, No CVA Tenderness Extremity: Normal ROM, Other (no tremors) Neurological/Psych: Oriented x3, Normal Speech, Normal Cranial Nerves Gait: Steady ED Course And Treatment - Laboratory Results Result Diagrams: 10/05/17 15:51 10/05/17 16:50 O2 Sat by Pulse Oximetry: 100 Critical Care Time - Critical Care Note Total Time (in mins): 30 Comments: Insulin drip and potassium replacement Documented critical care: time excludes all time spent performing seperately billable procedures. Medical Decision Making Medical Decision Making: EKG shows NSR at 93bpm with ?ST elevations in v-v5. Patient denies chest pain. Spoke to Dr. Springer who reports that he is more concerned about LVH. Will let inpatient team know to consider echo. Labs consistent with DKA vs starvation ketosis. IVF and insulin started with potassium replacement. Dr. Ramirez accepts patient and agrees with ICU residential care facility manager aware. ICU accepted. Disposition - Disposition Disposition: HOSPITALIZED Disposition Time: 16:50 Condition: CRITICAL - Clinical Impression Clinical Impression: DKA (diabetic ketoacidoses), Alcohol dependence, Ketosis
--- NOTE | 2017-10-05 15:45 | RAD ---
Date of service: 10/05/2017 HISTORY: Detox/Psy COMPARISON: 11/25/2015 TECHNIQUE: Chest PA and lateral FINDINGS: LUNGS: No active pulmonary disease. PLEURA: No significant pleural effusion identified. No pneumothorax apparent. CARDIOVASCULAR: Normal. OSSEOUS STRUCTURES: No significant abnormalities. VISUALIZED UPPER ABDOMEN: Normal. OTHER FINDINGS: None. IMPRESSION: No active disease.
[2017-10-05 16:15] LABS: ALB/GLOB RATIO 1.5 (1.0-2.1); ALBUMIN 5.2 g/dL (3.5-5.0); ALT/SGPT 137 U/L (21-72); AST/SGOT 111 U/L (17-59); BLOOD UREA NITROGEN 22 mg/dL (9-20); CALCIUM 9.9 mg/dl (8.6-10.4); GFR NON-AFRICAN AMERICAN > 60
[2017-10-05 16:43] LABS: VENOUS BLOOD GAS BASE EXCESS -8.8 mmol/L (0.0-2.0); VENOUS BLOOD GAS PCO2 34 mmHg (40-60); VENOUS BLOOD GAS PO2 22 mm/Hg (30-55)
[2017-10-05] MEDS ORDERED: Potassium Chloride 20 mEq ER Tab PO STA (16:47)
[2017-10-05 16:51] LABS: MEAN CORPUSCULAR HEMOGLOBIN 30.9 pg (27.0-31.0); RBC 4.85 Mil/uL (4.40-5.90); WHITE BLOOD COUNT 4.7 K/uL (4.8-10.8)
[2017-10-05 16:52] LABS: BASO % 0.3 % (0.0-2.0); EOS % 0.1 % (0.0-4.0); LYMPH # 0.6 K/uL (1.0-4.3); LYMPH % 12.8 % (20.0-40.0); MEAN CORPUSCULAR HGB CONC 35.5 g/dL (33.0-37.0); MONO # 0.8 K/uL (0.0-0.8); MONO % 17.3 % (0.0-10.0); NEUT # 3.3 K/uL (1.8-7.0); NEUT % 69.5 % (50.0-75.0); NRBC % 0.1 % (0.0-2.0); RED CELL DISTRIBUTION WIDTH 12.9 % (11.5-14.5)
[2017-10-05 16:53] LABS: MEAN CELL VOLUME 86.9 fL (80.0-94.0)
[2017-10-05] MEDS ORDERED: Insulin Human Regular 100 UNIT in Sodium Chloride 0.9% 99 ML IV SCH ×3 (17:00→23:02)
[2017-10-05 17:10] LABS: ALB/GLOB RATIO 1.5 (1.0-2.1); ALBUMIN 4.8 g/dL (3.5-5.0); ALT/SGPT 122 U/L (21-72); AST/SGOT 106 U/L (17-59); BLOOD UREA NITROGEN 22 mg/dL (9-20); CALCIUM 9.3 mg/dl (8.6-10.4); GFR NON-AFRICAN AMERICAN > 60
[2017-10-05] MEDS ORDERED: Potassium Chloride 20 mEq 100 ML ONE ×2 (17:11→19:06)
[2017-10-05] MEDS ORDERED: Sodium Chloride 0.9% 1,000 ML ONE (17:11)
[2017-10-05] MEDS ORDERED: Potassium Chloride 20 mEq ER Tab PO ONE (17:11)
[2017-10-05] MEDS ORDERED: Sodium Chloride 0.9% 1,000 ML IV SCH (18:00)
[2017-10-05 18:47] LABS: BARBITURATES, UR NEGATIVE (NEGATIVE); BENZODIAZEPINES, UR NEGATIVE (NEGATIVE); OPIATES, UR NEGATIVE (NEGATIVE); PHENCYCLIDINE, UR NEGATIVE (NEGATIVE)
[2017-10-05 18:49] LABS: SQUAMOUS EPITHIAL < 1 /hpf (0-5); URINE BACTERIA RARE (<OCC); URINE BILIRUBIN NEGATIVE (NEGATIVE); URINE CLARITY Clear (Clear); URINE COLOR Yellow (YELLOW); URINE GLUCOSE (UA) 3+ mg/dL (Normal); URINE LEUKOCYTE ESTERASE NEG Leu/uL (Negative); URINE PROTEIN 2+ mg/dL (NEGATIVE); URINE UROBILINOGEN NORMAL mg/dL (0.2-1.0)
[2017-10-05 18:50] LABS: URINE BLOOD 1+ (NEGATIVE)
[2017-10-05] MEDS ORDERED: Dextrose 5%/0.45% NS 1,000 ML IV SCH (19:00)
[2017-10-05] MEDS ORDERED: Dextrose 5%/0.45% NS 1,000 ML IV ONE (19:02)
[2017-10-05] MEDS ORDERED: Potassium Chloride 20 MEQ in Dextrose 5%/0.9% NS 1,000 ML IV SCH (20:15)
--- NOTE | 2017-10-05 20:34 | CP.CCUPN ---
CCU Subjective - Physician Review Subjective (Free Text): 10/06/17 01:17 The Patient was seen and examined at the bedside, Medical records reviewed, and management issues were discussed and formulated with the house staff. Mr Arguello is a 32 year old male with past medical history of IDDM and alcohol abuse presenting to the emergency room requesting detox. ICU called for DKA and markedly abnormal labs with severe hyponatremia, Hypokalemia Patient states that he normally drinks 3/5 of vodka per day and last drink was three days ago, Pt states that he has lost his job in the [employer] because of drinking and has not being taking his insulin for more than a month. Patient received 3L of IVF so far and was started on insulin drip Patient AAO x3, Denies fevers/chills, abdominal pain, nausea/vomiting, chest pain or shortness of breath. Critical Care Time Spent (in minutes): 36 CCU Objective - Vital Signs / Intake & Output Vital Signs (Last 4 hours): Vital Signs Temp Pulse Resp BP Pulse Ox 10/05/17 20:23 98.2 F 102 H 16 132/74 100 10/05/17 18:57 100 10/05/17 18:54 97 H 14 151/99 H 99 10/05/17 18:24 97 H 18 166/99 H 96 Intake and Output (Last 8hrs): Intake & Output 10/05/17 10/05/17 10/05/17 06:59 14:59 22:59 Output Total 400 Balance -400 Weight 160 lb Output: Urine 400 - Physical Exam Physical Exam Limitations: Positive for: Clinical Condition, Intoxication Head: Positive for: Atraumatic, Normocephalic Pupils: Positive for: PERRL. Negative for: Sluggish, Non-Reactive Extroacular Muscles: Positive for: EOMI Conjunctiva: Positive for: Normal. Negative for: Injected, Icteric Ears: Positive for: Normal Mouth: Positive for: Moist Mucous Membranes Pharnyx: Positive for: Normal. Negative for: ERYTHEMA Nose (Internal): Positive for: Normal Inspection Neck: Positive for: Normal Range of Motion Respiratory/Chest: Positive for: Clear to Auscultation, Good Air Exchange. Negative for: Respiratory Distress, Accessory Muscle Use, Wheezes, Decreased Breath Sounds, Rales Cardiovascular: Positive for: Regular Rate and Rhythm. Negative for: Murmurs Abdomen: Positive for: Normal Bowel Sounds. Negative for: Tenderness, Distention Upper Extremity: Positive for: Normal Inspection, Capillary Refill < 2s Lower Extremity: Positive for: Normal Inspection, Capillary Refill < 2 s Neurological: Positive for: GCS=15, CN II-XII Intact, Speech Normal, Motor Func Grossly Intact Psychiatric: Positive for: Alert, Oriented x 3, Normal Insight, Normal Concentration - Medications Active Medications: Active Medications Generic Name Dose Route Start Last Admin Trade Name Freq PRN Reason Stop Dose Admin Insulin Human Regular 100 unit 100 mls @ 3 mls/hr 10/05/17 20:16 10/05/17 20: 17 / Sodium Chloride IV 3 mls/hr .Q24H MATTHEW Administration Potassium Chloride/Dextrose/Sod Cl 1,000 mls @ 200 mls/hr 10/05/17 20:30 Potassium Chl 20 Meq In D5-Ns IV .Q5H MTATHEW - Patient Studies Lab Studies: Lab Studies 10/05/17 10/05/17 10/05/17 Range/Units 19:33 18:51 18:36 WBC (4.8-10.8) K/uL RBC (4.40-5.90) Mil/uL Hgb (12.0-18.0) g/dL Hct (35.0-51.0) % MCV (80.0-94.0) fL MCH (27.0-31.0) pg MCHC (33.0-37.0) g/dL RDW (11.5-14.5) % Plt Count (130-400) K/uL MPV (7.2-11.7) fL Neut % (Auto) (50.0-75.0) % Lymph % (Auto) (20.0-40.0) % [place] % (Auto) (0.0-10.0) % Eos % (Auto) (0.0-4.0) % Baso % (Auto) (0.0-2.0) % Neut # (Auto) (1.8-7.0) K/uL Lymph # (Auto) (1.0-4.3) K/uL [place] # (Auto) (0.0-0.8) K/uL Eos # (Auto) (0.0-0.7) K/uL Baso # (Auto) (0.0-0.2) K/uL pO2 (30-55) mm/Hg VBG pH (7.32-7.43) VBG pCO2 (40-60) mmHg VBG HCO3 mmol/L VBG Total CO2 (22-28) mmol/L VBG O2 Sat (Calc) (40-65) % VBG Base Excess (0.0-2.0) mmol/L VBG Potassium (3.6-5.2) mmol/L Glucose (75-110) mg/dl Lactate (0.7-2.1) mmol/L FiO2 % Crit Value Called To Crit Value Called By Crit Value Read Back Blood Gas Notified Time Sodium (132-148) mmol/L Potassium (3.6-5.2) mmol/L Chloride (98-107) mmol/L Carbon Dioxide (22-30) mmol/L Anion Gap (10-20) BUN (9-20) mg/dL Creatinine (0.8-1.5) mg/dL Est GFR ( Amer) Est GFR (Non-Af Amer) POC Glucose (mg/dL) 154 H 226 H 233 H (65-110) mg/dL Random Glucose (75-110) mg/dL Calcium (8.6-10.4) mg/dl Total Bilirubin (0.2-1.3) mg/dL AST (17-59) U/L ALT (21-72) U/L Alkaline Phosphatase (38-126) U/L Troponin I (0.00-0.120) ng/mL Total Protein (6.3-8.3) g/dL Albumin (3.5-5.0) g/dL Globulin (2.2-3.9) gm/dL Albumin/Globulin Ratio (1.0-2.1) Venous Blood Potassium (3.6-5.2) mmol/L Urine Color (YELLOW) Urine Clarity (Clear) Urine pH (5.0-8.0) Ur Specific [place] (1.003-1.030) Urine Protein (NEGATIVE) mg/dL Urine Glucose (UA) (Normal) mg/dL Urine Ketones (NEGATIVE) mg/dL Urine Blood (NEGATIVE) Urine Nitrate (NEGATIVE) Urine Bilirubin (NEGATIVE) Urine Urobilinogen (0.2-1.0) mg/dL Ur Leukocyte Esterase (Negative) Brijesh/uL Urine WBC (Auto) (0-5) /hpf Urine RBC (Auto) (0-3) /hpf Ur Squamous Epith Cells (0-5) /hpf Urine Bacteria (<OCC) Urine Opiates Screen (NEGATIVE) Urine Methadone Screen (NEGATIVE) Ur Barbiturates Screen (NEGATIVE) Ur Phencyclidine Scrn (NEGATIVE) Ur Amphetamines Screen (NEGATIVE) U Benzodiazepines Scrn (NEGATIVE) U Oth Cocaine Metabols (NEGATIVE) U Cannabinoids Screen (NEGATIVE) Alcohol, Quantitative (0-10) mg/dl B-Hydroxybutyrate (0.02-0.27) mM 10/05/17 10/05/17 10/05/17 Range/Units 18:24 18:24 18:11 WBC (4.8-10.8) K/uL RBC (4.40-5.90) Mil/uL Hgb (12.0-18.0) g/dL Hct (35.0-51.0) % MCV (80.0-94.0) fL MCH (27.0-31.0) pg MCHC (33.0-37.0) g/dL RDW (11.5-14.5) % Plt Count (130-400) K/uL MPV (7.2-11.7) fL Neut % (Auto) (50.0-75.0) % Lymph % (Auto) (20.0-40.0) % [place] % (Auto) (0.0-10.0) % Eos % (Auto) (0.0-4.0) % Baso % (Auto) (0.0-2.0) % Neut # (Auto) (1.8-7.0) K/uL Lymph # (Auto) (1.0-4.3) K/uL [place] # (Auto) (0.0-0.8) K/uL Eos # (Auto) (0.0-0.7) K/uL Baso # (Auto) (0.0-0.2) K/uL pO2 (30-55) mm/Hg VBG pH (7.32-7.43) VBG pCO2 (40-60) mmHg VBG HCO3 mmol/L VBG Total CO2 (22-28) mmol/L VBG O2 Sat (Calc) (40-65) % VBG Base Excess (0.0-2.0) mmol/L VBG Potassium (3.6-5.2) mmol/L Glucose (75-110) mg/dl Lactate (0.7-2.1) mmol/L FiO2 % Crit Value Called To Crit Value Called By Crit Value Read Back Blood Gas Notified Time Sodium (132-148) mmol/L Potassium (3.6-5.2) mmol/L Chloride (98-107) mmol/L Carbon Dioxide (22-30) mmol/L Anion Gap (10-20) BUN (9-20) mg/dL Creatinine (0.8-1.5) mg/dL Est GFR ( Amer) Est GFR (Non-Af Amer) POC Glucose (mg/dL) (65-110) mg/dL Random Glucose (75-110) mg/dL Calcium (8.6-10.4) mg/dl Total Bilirubin (0.2-1.3) mg/dL AST (17-59) U/L ALT (21-72) U/L Alkaline Phosphatase (38-126) U/L Troponin I (0.00-0.120) ng/mL Total Protein (6.3-8.3) g/dL Albumin (3.5-5.0) g/dL Globulin (2.2-3.9) gm/dL Albumin/Globulin Ratio (1.0-2.1) Venous Blood Potassium (3.6-5.2) mmol/L Urine Color Yellow (YELLOW) Urine Clarity Clear (Clear) Urine pH 6.0 (5.0-8.0) Ur Specific [place] 1.013 (1.003-1.030) Urine Protein 2+ H (NEGATIVE) mg/dL Urine Glucose (UA) 3+ H (Normal) mg/dL Urine Ketones 2+ H (NEGATIVE) mg/dL Urine Blood 1+ H (NEGATIVE) Urine Nitrate Negative (NEGATIVE) Urine Bilirubin Negative (NEGATIVE) Urine Urobilinogen Normal (0.2-1.0) mg/dL Ur Leukocyte Esterase Neg (Negative) Brijesh/uL Urine WBC (Auto) < 1 (0-5) /hpf Urine RBC (Auto) 2 (0-3) /hpf Ur Squamous Epith Cells < 1 (0-5) /hpf Urine Bacteria Rare (<OCC) Urine Opiates Screen Negative (NEGATIVE) Urine Methadone Screen Negative (NEGATIVE) Ur Barbiturates Screen Negative (NEGATIVE) Ur Phencyclidine Scrn Negative (NEGATIVE) Ur Amphetamines Screen Negative (NEGATIVE) U Benzodiazepines Scrn Negative (NEGATIVE) U Oth Cocaine Metabols Negative (NEGATIVE) U Cannabinoids Screen Negative (NEGATIVE) Alcohol, Quantitative (0-10) mg/dl B-Hydroxybutyrate 6.69 H (0.02-0.27) mM 10/05/17 10/05/17 10/05/17 Range/Units 17:22 16:50 16:35 WBC (4.8-10.8) K/uL RBC (4.40-5.90) Mil/uL Hgb (12.0-18.0) g/dL Hct (35.0-51.0) % MCV (80.0-94.0) fL MCH (27.0-31.0) pg MCHC (33.0-37.0) g/dL RDW (11.5-14.5) % Plt Count (130-400) K/uL MPV (7.2-11.7) fL Neut % (Auto) (50.0-75.0) % Lymph % (Auto) (20.0-40.0) % [place] % (Auto) (0.0-10.0) % Eos % (Auto) (0.0-4.0) % Baso % (Auto) (0.0-2.0) % Neut # (Auto) (1.8-7.0) K/uL Lymph # (Auto) (1.0-4.3) K/uL [place] # (Auto) (0.0-0.8) K/uL Eos # (Auto) (0.0-0.7) K/uL Baso # (Auto) (0.0-0.2) K/uL pO2 22 L (30-55) mm/Hg VBG pH 7.30 L (7.32-7.43) VBG pCO2 34 L (40-60) mmHg VBG HCO3 16.2 mmol/L VBG Total CO2 17.7 L (22-28) mmol/L VBG O2 Sat (Calc) 40.5 (40-65) % VBG Base Excess -8.8 L (0.0-2.0) mmol/L VBG Potassium 2.2 L* (3.6-5.2) mmol/L Glucose 425 H* (75-110) mg/dl Lactate 2.4 H (0.7-2.1) mmol/L FiO2 21.0 % Crit Value Called To Dr steel Crit Value Called By [facility] Crit Value Read Back Y Blood Gas Notified Time 1643 Sodium 113 L* 120.0 L* (132-148) mmol/L Potassium 3.0 L (3.6-5.2) mmol/L Chloride 68 L 80.0 L (98-107) mmol/L Carbon Dioxide 16 L (22-30) mmol/L Anion Gap 32 H (10-20) BUN 22 H (9-20) mg/dL Creatinine 1.0 (0.8-1.5) mg/dL Est GFR ( Amer) > 60 Est GFR (Non-Af Amer) > 60 POC Glucose (mg/dL) (65-110) mg/dL Random Glucose 471 H* (75-110) mg/dL Calcium 9.3 (8.6-10.4) mg/dl Total Bilirubin 1.2 (0.2-1.3) mg/dL AST 106 H (17-59) U/L ALT 122 H (21-72) U/L Alkaline Phosphatase 122 (38-126) U/L Troponin I < 0.0120 (0.00-0.120) ng/mL Total Protein 7.9 (6.3-8.3) g/dL Albumin 4.8 (3.5-5.0) g/dL Globulin 3.1 (2.2-3.9) gm/dL Albumin/Globulin Ratio 1.5 (1.0-2.1) Venous Blood Potassium 2.2 L* (3.6-5.2) mmol/L Urine Color (YELLOW) Urine Clarity (Clear) Urine pH (5.0-8.0) Ur Specific [place] (1.003-1.030) Urine Protein (NEGATIVE) mg/dL Urine Glucose (UA) (Normal) mg/dL Urine Ketones (NEGATIVE) mg/dL Urine Blood (NEGATIVE) Urine Nitrate (NEGATIVE) Urine Bilirubin (NEGATIVE) Urine Urobilinogen (0.2-1.0) mg/dL Ur Leukocyte Esterase (Negative) Brijesh/uL Urine WBC (Auto) (0-5) /hpf Urine RBC (Auto) (0-3) /hpf Ur Squamous Epith Cells (0-5) /hpf Urine Bacteria (<OCC) Urine Opiates Screen (NEGATIVE) Urine Methadone Screen (NEGATIVE) Ur Barbiturates Screen (NEGATIVE) Ur Phencyclidine Scrn (NEGATIVE) Ur Amphetamines Screen (NEGATIVE) U Benzodiazepines Scrn (NEGATIVE) U Oth Cocaine Metabols (NEGATIVE) U Cannabinoids Screen (NEGATIVE) Alcohol, Quantitative (0-10) mg/dl B-Hydroxybutyrate (0.02-0.27) mM 10/05/17 10/05/17 10/05/17 Range/Units 16:05 16:02 15:51 WBC (4.8-10.8) K/uL RBC (4.40-5.90) Mil/uL Hgb (12.0-18.0) g/dL Hct (35.0-51.0) % MCV (80.0-94.0) fL MCH (27.0-31.0) pg MCHC (33.0-37.0) g/dL RDW (11.5-14.5) % Plt Count (130-400) K/uL MPV (7.2-11.7) fL Neut % (Auto) (50.0-75.0) % Lymph % (Auto) (20.0-40.0) % [place] % (Auto) (0.0-10.0) % Eos % (Auto) (0.0-4.0) % Baso % (Auto) (0.0-2.0) % Neut # (Auto) (1.8-7.0) K/uL Lymph # (Auto) (1.0-4.3) K/uL [place] # (Auto) (0.0-0.8) K/uL Eos # (Auto) (0.0-0.7) K/uL Baso # (Auto) (0.0-0.2) K/uL pO2 (30-55) mm/Hg VBG pH (7.32-7.43) VBG pCO2 (40-60) mmHg VBG HCO3 mmol/L VBG Total CO2 (22-28) mmol/L VBG O2 Sat (Calc) (40-65) % VBG Base Excess (0.0-2.0) mmol/L VBG Potassium (3.6-5.2) mmol/L Glucose (75-110) mg/dl Lactate (0.7-2.1) mmol/L FiO2 % Crit Value Called To Crit Value Called By Crit Value Read Back Blood Gas Notified Time Sodium 112 L* (132-148) mmol/L Potassium 3.1 L (3.6-5.2) mmol/L Chloride 65 L D (98-107) mmol/L Carbon Dioxide 16 L (22-30) mmol/L Anion Gap 34 H (10-20) BUN 22 H (9-20) mg/dL Creatinine 1.1 (0.8-1.5) mg/dL Est GFR ( Amer) > 60 Est GFR (Non-Af Amer) > 60 POC Glucose (mg/dL) > 500 H* > 500 H* (65-110) mg/dL Random Glucose 531 H* D (75-110) mg/dL Calcium 9.9 (8.6-10.4) mg/dl Total Bilirubin 1.3 (0.2-1.3) mg/dL AST 111 H D (17-59) U/L ALT 137 H D (21-72) U/L Alkaline Phosphatase 138 H (38-126) U/L Troponin I (0.00-0.120) ng/mL Total Protein 8.6 H (6.3-8.3) g/dL Albumin 5.2 H D (3.5-5.0) g/dL Globulin 3.4 (2.2-3.9) gm/dL Albumin/Globulin Ratio 1.5 (1.0-2.1) Venous Blood Potassium (3.6-5.2) mmol/L Urine Color (YELLOW) Urine Clarity (Clear) Urine pH (5.0-8.0) Ur Specific [place] (1.003-1.030) Urine Protein (NEGATIVE) mg/dL Urine Glucose (UA) (Normal) mg/dL Urine Ketones (NEGATIVE) mg/dL Urine Blood (NEGATIVE) Urine Nitrate (NEGATIVE) Urine Bilirubin (NEGATIVE) Urine Urobilinogen (0.2-1.0) mg/dL Ur Leukocyte Esterase (Negative) Brijesh/uL Urine WBC (Auto) (0-5) /hpf Urine RBC (Auto) (0-3) /hpf Ur Squamous Epith Cells (0-5) /hpf Urine Bacteria (<OCC) Urine Opiates Screen (NEGATIVE) Urine Methadone Screen (NEGATIVE) Ur Barbiturates Screen (NEGATIVE) Ur Phencyclidine Scrn (NEGATIVE) Ur Amphetamines Screen (NEGATIVE) U Benzodiazepines Scrn (NEGATIVE) U Oth Cocaine Metabols (NEGATIVE) U Cannabinoids Screen (NEGATIVE) Alcohol, Quantitative < 10 (0-10) mg/dl B-Hydroxybutyrate (0.02-0.27) mM 10/05/17 Range/Units 15:51 WBC 4.7 L (4.8-10.8) K/uL RBC 4.85 (4.40-5.90) Mil/uL Hgb 15.0 (12.0-18.0) g/dL Hct 42.1 (35.0-51.0) % MCV 86.9 D (80.0-94.0) fL MCH 30.9 (27.0-31.0) pg MCHC 35.5 (33.0-37.0) g/dL RDW 12.9 (11.5-14.5) % Plt Count 172 (130-400) K/uL MPV 9.0 (7.2-11.7) fL Neut % (Auto) 69.5 (50.0-75.0) % Lymph % (Auto) 12.8 L (20.0-40.0) % [place] % (Auto) 17.3 H (0.0-10.0) % Eos % (Auto) 0.1 (0.0-4.0) % Baso % (Auto) 0.3 (0.0-2.0) % Neut # (Auto) 3.3 (1.8-7.0) K/uL Lymph # (Auto) 0.6 L (1.0-4.3) K/uL [place] # (Auto) 0.8 (0.0-0.8) K/uL Eos # (Auto) 0.0 (0.0-0.7) K/uL Baso # (Auto) 0.0 (0.0-0.2) K/uL pO2 (30-55) mm/Hg VBG pH (7.32-7.43) VBG pCO2 (40-60) mmHg VBG HCO3 mmol/L VBG Total CO2 (22-28) mmol/L VBG O2 Sat (Calc) (40-65) % VBG Base Excess (0.0-2.0) mmol/L VBG Potassium (3.6-5.2) mmol/L Glucose (75-110) mg/dl Lactate (0.7-2.1) mmol/L FiO2 % Crit Value Called To Crit Value Called By Crit Value Read Back Blood Gas Notified Time Sodium (132-148) mmol/L Potassium (3.6-5.2) mmol/L Chloride (98-107) mmol/L Carbon Dioxide (22-30) mmol/L Anion Gap (10-20) BUN (9-20) mg/dL Creatinine (0.8-1.5) mg/dL Est GFR ( Amer) Est GFR (Non-Af Amer) POC Glucose (mg/dL) (65-110) mg/dL Random Glucose (75-110) mg/dL Calcium (8.6-10.4) mg/dl Total Bilirubin (0.2-1.3) mg/dL AST (17-59) U/L ALT (21-72) U/L Alkaline Phosphatase (38-126) U/L Troponin I (0.00-0.120) ng/mL Total Protein (6.3-8.3) g/dL Albumin (3.5-5.0) g/dL Globulin (2.2-3.9) gm/dL Albumin/Globulin Ratio (1.0-2.1) Venous Blood Potassium (3.6-5.2) mmol/L Urine Color (YELLOW) Urine Clarity (Clear) Urine pH (5.0-8.0) Ur Specific [place] (1.003-1.030) Urine Protein (NEGATIVE) mg/dL Urine Glucose (UA) (Normal) mg/dL Urine Ketones (NEGATIVE) mg/dL Urine Blood (NEGATIVE) Urine Nitrate (NEGATIVE) Urine Bilirubin (NEGATIVE) Urine Urobilinogen (0.2-1.0) mg/dL Ur Leukocyte Esterase (Negative) Brijesh/uL Urine WBC (Auto) (0-5) /hpf Urine RBC (Auto) (0-3) /hpf Ur Squamous Epith Cells (0-5) /hpf Urine Bacteria (<OCC) Urine Opiates Screen (NEGATIVE) Urine Methadone Screen (NEGATIVE) Ur Barbiturates Screen (NEGATIVE) Ur Phencyclidine Scrn (NEGATIVE) Ur Amphetamines Screen (NEGATIVE) U Benzodiazepines Scrn (NEGATIVE) U Oth Cocaine Metabols (NEGATIVE) U Cannabinoids Screen (NEGATIVE) Alcohol, Quantitative (0-10) mg/dl B-Hydroxybutyrate (0.02-0.27) mM Laboratory Results - last 24 hr 10/05/17 10/05/17 10/05/17 15:51 15:51 16:02 WBC 4.7 L RBC 4.85 Hgb 15.0 Hct 42.1 MCV 86.9 D MCH 30.9 MCHC 35.5 RDW 12.9 Plt Count 172 MPV 9.0 Neut % (Auto) 69.5 Lymph % (Auto) 12.8 L [place] % (Auto) 17.3 H Eos % (Auto) 0.1 Baso % (Auto) 0.3 Neut # (Auto) 3.3 Lymph # (Auto) 0.6 L [place] # (Auto) 0.8 Eos # (Auto) 0.0 Baso # (Auto) 0.0 pO2 VBG pH VBG pCO2 VBG HCO3 VBG Total CO2 VBG O2 Sat (Calc) VBG Base Excess VBG Potassium Glucose Lactate FiO2 Crit Value Called To Crit Value Called By Crit Value Read Back Blood Gas Notified Time Sodium 112 L* Potassium 3.1 L Chloride 65 L D Carbon Dioxide 16 L Anion Gap 34 H BUN 22 H Creatinine 1.1 Est GFR ( Amer) > 60 Est GFR (Non-Af Amer) > 60 POC Glucose (mg/dL) > 500 H* Random Glucose 531 H* D Calcium 9.9 Total Bilirubin 1.3 AST 111 H D ALT 137 H D Alkaline Phosphatase 138 H Troponin I Total Protein 8.6 H Albumin 5.2 H D Globulin 3.4 Albumin/Globulin Ratio 1.5 Venous Blood Potassium Urine Color Urine Clarity Urine pH Ur Specific [place] Urine Protein Urine Glucose (UA) Urine Ketones Urine Blood Urine Nitrate Urine Bilirubin Urine Urobilinogen Ur Leukocyte Esterase Urine WBC (Auto) Urine RBC (Auto) Ur Squamous Epith Cells Urine Bacteria Urine Opiates Screen Urine Methadone Screen Ur Barbiturates Screen Ur Phencyclidine Scrn Ur Amphetamines Screen U Benzodiazepines Scrn U Oth Cocaine Metabols U Cannabinoids Screen Alcohol, Quantitative < 10 B-Hydroxybutyrate 10/05/17 10/05/17 10/05/17 16:05 16:35 16:50 WBC RBC Hgb Hct MCV MCH MCHC RDW Plt Count MPV Neut % (Auto) Lymph % (Auto) [place] % (Auto) Eos % (Auto) Baso % (Auto) Neut # (Auto) Lymph # (Auto) [place] # (Auto) Eos # (Auto) Baso # (Auto) pO2 22 L VBG pH 7.30 L VBG pCO2 34 L VBG HCO3 16.2 VBG Total CO2 17.7 L VBG O2 Sat (Calc) 40.5 VBG Base Excess -8.8 L VBG Potassium 2.2 L* Glucose 425 H* Lactate 2.4 H FiO2 21.0 Crit Value Called To Dr steel Crit Value Called By [facility] Crit Value Read Back Y Blood Gas Notified Time 1643 Sodium 120.0 L* 113 L* Potassium 3.0 L Chloride 80.0 L 68 L Carbon Dioxide 16 L Anion Gap 32 H BUN 22 H Creatinine 1.0 Est GFR ( Amer) > 60 Est GFR (Non-Af Amer) > 60 POC Glucose (mg/dL) > 500 H* Random Glucose 471 H* Calcium 9.3 Total Bilirubin 1.2 AST 106 H ALT 122 H Alkaline Phosphatase 122 Troponin I Total Protein 7.9 Albumin 4.8 Globulin 3.1 Albumin/Globulin Ratio 1.5 Venous Blood Potassium 2.2 L* Urine Color Urine Clarity Urine pH Ur Specific [place] Urine Protein Urine Glucose (UA) Urine Ketones Urine Blood Urine Nitrate Urine Bilirubin Urine Urobilinogen Ur Leukocyte Esterase Urine WBC (Auto) Urine RBC (Auto) Ur Squamous Epith Cells Urine Bacteria Urine Opiates Screen Urine Methadone Screen Ur Barbiturates Screen Ur Phencyclidine Scrn Ur Amphetamines Screen U Benzodiazepines Scrn U Oth Cocaine Metabols U Cannabinoids Screen Alcohol, Quantitative B-Hydroxybutyrate 10/05/17 10/05/17 10/05/17 17:22 18:11 18:24 WBC RBC Hgb Hct MCV MCH MCHC RDW Plt Count MPV Neut % (Auto) Lymph % (Auto) [place] % (Auto) Eos % (Auto) Baso % (Auto) Neut # (Auto) Lymph # (Auto) [place] # (Auto) Eos # (Auto) Baso # (Auto) pO2 VBG pH VBG pCO2 VBG HCO3 VBG Total CO2 VBG O2 Sat (Calc) VBG Base Excess VBG Potassium Glucose Lactate FiO2 Crit Value Called To Crit Value Called By Crit Value Read Back Blood Gas Notified Time Sodium Potassium Chloride Carbon Dioxide Anion Gap BUN Creatinine Est GFR ( Amer) Est GFR (Non-Af Amer) POC Glucose (mg/dL) Random Glucose Calcium Total Bilirubin AST ALT Alkaline Phosphatase Troponin I < 0.0120 Total Protein Albumin Globulin Albumin/Globulin Ratio Venous Blood Potassium Urine Color Yellow Urine Clarity Clear Urine pH 6.0 Ur Specific [place] 1.013 Urine Protein 2+ H Urine Glucose (UA) 3+ H Urine Ketones 2+ H Urine Blood 1+ H Urine Nitrate Negative Urine Bilirubin Negative Urine Urobilinogen Normal Ur Leukocyte Esterase Neg Urine WBC (Auto) < 1 Urine RBC (Auto) 2 Ur Squamous Epith Cells < 1 Urine Bacteria Rare Urine Opiates Screen Urine Methadone Screen Ur Barbiturates Screen Ur Phencyclidine Scrn Ur Amphetamines Screen U Benzodiazepines Scrn U Oth Cocaine Metabols U Cannabinoids Screen Alcohol, Quantitative B-Hydroxybutyrate 6.69 H 10/05/17 10/05/17 10/05/17 18:24 18:36 18:51 WBC RBC Hgb Hct MCV MCH MCHC RDW Plt Count MPV Neut % (Auto) Lymph % (Auto) [place] % (Auto) Eos % (Auto) Baso % (Auto) Neut # (Auto) Lymph # (Auto) [place] # (Auto) Eos # (Auto) Baso # (Auto) pO2 VBG pH VBG pCO2 VBG HCO3 VBG Total CO2 VBG O2 Sat (Calc) VBG Base Excess VBG Potassium Glucose Lactate FiO2 Crit Value Called To Crit Value Called By Crit Value Read Back Blood Gas Notified Time Sodium Potassium Chloride Carbon Dioxide Anion Gap BUN Creatinine Est GFR ( Amer) Est GFR (Non-Af Amer) POC Glucose (mg/dL) 233 H 226 H Random Glucose Calcium Total Bilirubin AST ALT Alkaline Phosphatase Troponin I Total Protein Albumin Globulin Albumin/Globulin Ratio Venous Blood Potassium Urine Color Urine Clarity Urine pH Ur Specific [place] Urine Protein Urine Glucose (UA) Urine Ketones Urine Blood Urine Nitrate Urine Bilirubin Urine Urobilinogen Ur Leukocyte Esterase Urine WBC (Auto) Urine RBC (Auto) Ur Squamous Epith Cells Urine Bacteria Urine Opiates Screen Negative Urine Methadone Screen Negative Ur Barbiturates Screen Negative Ur Phencyclidine Scrn Negative Ur Amphetamines Screen Negative U Benzodiazepines Scrn Negative U Oth Cocaine Metabols Negative U Cannabinoids Screen Negative Alcohol, Quantitative B-Hydroxybutyrate 10/05/17 19:33 WBC RBC Hgb Hct MCV MCH MCHC RDW Plt Count MPV Neut % (Auto) Lymph % (Auto) [place] % (Auto) Eos % (Auto) Baso % (Auto) Neut # (Auto) Lymph # (Auto) [place] # (Auto) Eos # (Auto) Baso # (Auto) pO2 VBG pH VBG pCO2 VBG HCO3 VBG Total CO2 VBG O2 Sat (Calc) VBG Base Excess VBG Potassium Glucose Lactate FiO2 Crit Value Called To Crit Value Called By Crit Value Read Back Blood Gas Notified Time Sodium Potassium Chloride Carbon Dioxide Anion Gap BUN Creatinine Est GFR ( Amer) Est GFR (Non-Af Amer) POC Glucose (mg/dL) 154 H Random Glucose Calcium Total Bilirubin AST ALT Alkaline Phosphatase Troponin I Total Protein Albumin Globulin Albumin/Globulin Ratio Venous Blood Potassium Urine Color Urine Clarity Urine pH Ur Specific [place] Urine Protein Urine Glucose (UA) Urine Ketones Urine Blood Urine Nitrate Urine Bilirubin Urine Urobilinogen Ur Leukocyte Esterase Urine WBC (Auto) Urine RBC (Auto) Ur Squamous Epith Cells Urine Bacteria Urine Opiates Screen Urine Methadone Screen Ur Barbiturates Screen Ur Phencyclidine Scrn Ur Amphetamines Screen U Benzodiazepines Scrn U Oth Cocaine Metabols U Cannabinoids Screen Alcohol, Quantitative B-Hydroxybutyrate EKG/Cardiology Studies: Cardiology / EKG Studies 10/05/17 14:56 ELECTROCARDIOGRAM Stat Comment: Mode Of Transportation: BED Reason For Exam: Detox/Psy Fingerstick Blood Sugar Results: 154 Review of Systems - Constitutional Constitutional: Weakness, Malaise. absent: Fever, Chills - Cardiovascular Cardiovascular: absent: Chest Pain, Chest Pain at Rest, Chest Pain with Activity , Claudication, Diaphoresis Critical Care Progress Note - Extremities/Vascular Does the Patient have a Central Venous Catheter?: No Does the Patient need a Central Venous Catheter?: No Does the Patient have a [place] Catheter?: No Does the Patient need a [place] Catheter?: No Assessment/Plan (1) DKA (diabetic ketoacidoses) Current Visit: Yes Status: Acute Priority: High Comment: Cont. insulin drip at 3U /U till AG closed Will change to D5NS or D5 NS when BG < 250 mg /dL [place] check Q 1H while on insulin Basic metabolic panel and VBG Q 4H Repeate Labs including BMP, Ca, Po4, Mg, ABG/VBG Monitor renal function and urine output (2) Alcohol dependence Current Visit: Yes Status: Acute Priority: High Comment: Check Alcohol level, u tox PRN Librium Psych consult in AM (3) Hyponatremia Current Visit: Yes Status: Acute Priority: High Comment: Asymptomatic hypovolemic hyponatremia No acute neurologic disorders, No need for hypertonic saline IV hydrations and volume resuscitaion with isotonic saline Measure the serum sodium concentration every four hours (4) Hypokalemia Current Visit: Yes Status: Acute Priority: High (5) Acute alcoholic pancreatitis Current Visit: No Status: Acute (6) Prophylactic measure Current Visit: Yes Status: Acute Priority: Medium
[2017-10-05] MEDS: Potassium Chl 20 mEq in D5-NS 1,000 ML IV SCH (20:46)
--- NOTE | 2017-10-05 20:57 | CP.PCM.HP ---
History of Present Illness - History of Present Illness History of Present Illness: PGY2 Medicine H+P for Dr. Ramirez Patient is a 32 year old male with a past medical history of IDDM and alcohol abuse presenting to the emergency room presenting for detox. Patient states that he normally drinks 3 fifths of vodka per day and has been drinking heavily since high school. His last drink was 3 days ago and patient states that he wants to quit drinking. He lost his job in the [employer] because he was drinking and states his entire life revolves around drinking. He also reports not taking his insulin for more than a month. He was nauseous and vomiting earlier prior to coming to the emergency department. He is no longer feeling nauseous but still feels weak overall. He otherwise has no complaints. Denies fevers, chills, nausea, vomiting, diarrhea, constipation, chest pain, shortness of breath, abdominal pain, vision changes, skin color changes, tremors, numbness or tingling. PMH: IDDM and alcohol abuse PSH: unknown Family: Mother - DM Social: smokes 1 ppd since teenager, drinks 3 fifths of vodka per day, denies any illicit drug use in the past Allergies: NKDA Meds: Supposed to take but has not taken in over a month. * Novolog 3u SC ACTID * Insulin Flex Pen 40u SC HS Present on Admission - Present on Admission Any Indicators Present on Admission: No Review of Systems - Review of Systems All systems: reviewed and no additional remarkable complaints except - Constitutional Constitutional: As Per HPI. absent: Chills, Fever, Weight Gain, Weight Loss - EENT Eyes: As Per HPI. absent: Blurred Vision, Change in Vision Nose/Mouth/Throat: As Per HPI. absent: Nasal Congestion, Sore Throat - Cardiovascular Cardiovascular: As Per HPI. absent: Chest Pain, Chest Pain at Rest, Dyspnea, Leg Edema, Lightheadedness - Respiratory Respiratory: As Per HPI. absent: Cough, Wheezing, Excessive Mucous Production - Gastrointestinal Gastrointestinal: As Per HPI, Bloating (intermittent), Nausea, Vomiting. absent : Abdominal Pain, Change in Bowel Habits, Constipation, Cramping, Diarrhea, Melena - Genitourinary Genitourinary: As Per HPI. absent: Difficulty Urinating, Dysuria, Urinary Incontinence, Urinary Frequency - Musculoskeletal Musculoskeletal: As Per HPI. absent: Abnormal Gait, Arthralgias, Myalgias - Integumentary Integumentary: As Per HPI. absent: Change in Hair, Erythema, Jaundice - Neurological Neurological: As Per HPI. absent: Abnormal Speech, Confusion, Dizziness, Numbness, Focal Weakness, Loss of Vision, Syncope, Tingling, Tremor, Weakness - Psychiatric Psychiatric: As Per HPI - Endocrine Endocrine: As Per HPI - Hematologic/Lymphatic Hematologic: As Per HPI Past Patient History - Infectious Disease Hx of Infectious Diseases: None - Past Medical History & Family History Past Medical History?: Yes - Past Social History Smoking Status: Heavy Smoker > 10 Cigarettes Daily - CARDIAC Hx Hypertension: Yes - PULMONARY Hx Bronchitis: Yes Hx Emphysema: Yes - NEUROLOGICAL Hx Seizures: No - HEENT Hx HEENT Problems: No - RENAL Hx Chronic Kidney Disease: No - ENDOCRINE/METABOLIC Hx Endocrine Disorders: Yes Hx Diabetes Mellitus Type 2: Yes - HEMATOLOGICAL/ONCOLOGICAL Hx Human Immunodeficiency Virus (HIV): No - INTEGUMENTARY Hx Dermatological Problems: No - MUSCULOSKELETAL/RHEUMATOLOGICAL Hx Musculoskeletal Disorders: No Hx Falls: No - GASTROINTESTINAL Hx Pancreatitis: Yes - GENITOURINARY/GYNECOLOGICAL Hx Sexually Transmitted Disorders: No - PSYCHIATRIC Hx Substance Use: No - SURGICAL HISTORY Hx Surgeries: Yes Other/Comment: HERNIA REPAIR - ANESTHESIA Hx Anesthesia: Yes Hx Anesthesia Reactions: No Hx Malignant Hyperthermia: No Meds Allergies/Adverse Reactions: Allergies Allergy/AdvReac Type Severity Reaction Status Date / Time No Known Allergies Allergy Verified 10/05/17 13:58 Physical Exam - Constitutional Appears: Non-toxic, No Acute Distress - Head Exam Head Exam: ATRAUMATIC, NORMOCEPHALIC - Eye Exam Eye Exam: EOMI, Normal appearance, PERRL, Scleral icterus Pupil Exam: NORMAL ACCOMODATION, PERRL - ENT Exam ENT Exam: Mucous Membranes Moist - Neck Exam Neck exam: Negative for: Lymphadenopathy - Respiratory Exam Respiratory Exam: Clear to Auscultation Bilateral, NORMAL BREATHING PATTERN. absent: Accessory Muscle Use, Rales, Respiratory Distress - Cardiovascular Exam Cardiovascular Exam: REGULAR RHYTHM, +S1 - GI/Abdominal Exam GI & Abdominal Exam: Normal Bowel Sounds, Soft. absent: Diminished Bowel Sounds , Distended, Firm, Guarding, Rebound, Rigid, Tenderness - Extremities Exam Extremities exam: Positive for: pedal pulses present. Negative for: calf tenderness, pedal edema - Neurological Exam Neurological exam: Alert, CN II-XII Intact, Oriented x3 - Psychiatric Exam Psychiatric exam: Normal Affect, Normal Mood - Skin Skin Exam: Dry, Warm Results - Vital Signs Recent Vital Signs: Last Vital Signs Temp 97.7 F 10/05/17 13:55 Pulse 97 H 10/05/17 18:54 Resp 14 10/05/17 18:54 BP 151/99 H 10/05/17 18:54 Pulse Ox 100 10/05/17 18:57 - Labs Result Diagrams: 10/06/17 07:10 10/06/17 07:10 Labs: Laboratory Results - last 24 hr 10/05/17 10/05/17 10/05/17 15:51 15:51 16:02 WBC 4.7 L RBC 4.85 Hgb 15.0 Hct 42.1 MCV 86.9 D MCH 30.9 MCHC 35.5 RDW 12.9 Plt Count 172 MPV 9.0 Neut % (Auto) 69.5 Lymph % (Auto) 12.8 L [place] % (Auto) 17.3 H Eos % (Auto) 0.1 Baso % (Auto) 0.3 Neut # (Auto) 3.3 Lymph # (Auto) 0.6 L [place] # (Auto) 0.8 Eos # (Auto) 0.0 Baso # (Auto) 0.0 pO2 VBG pH VBG pCO2 VBG HCO3 VBG Total CO2 VBG O2 Sat (Calc) VBG Base Excess VBG Potassium Glucose Lactate FiO2 Crit Value Called To Crit Value Called By Crit Value Read Back Blood Gas Notified Time Sodium 112 L* Potassium 3.1 L Chloride 65 L D Carbon Dioxide 16 L Anion Gap 34 H BUN 22 H Creatinine 1.1 Est GFR ( Amer) > 60 Est GFR (Non-Af Amer) > 60 POC Glucose (mg/dL) > 500 H* Random Glucose 531 H* D Calcium 9.9 Total Bilirubin 1.3 AST 111 H D ALT 137 H D Alkaline Phosphatase 138 H Troponin I Total Protein 8.6 H Albumin 5.2 H D Globulin 3.4 Albumin/Globulin Ratio 1.5 Venous Blood Potassium Urine Color Urine Clarity Urine pH Ur Specific [place] Urine Protein Urine Glucose (UA) Urine Ketones Urine Blood Urine Nitrate Urine Bilirubin Urine Urobilinogen Ur Leukocyte Esterase Urine WBC (Auto) Urine RBC (Auto) Ur Squamous Epith Cells Urine Bacteria Urine Opiates Screen Urine Methadone Screen Ur Barbiturates Screen Ur Phencyclidine Scrn Ur Amphetamines Screen U Benzodiazepines Scrn U Oth Cocaine Metabols U Cannabinoids Screen Alcohol, Quantitative < 10 B-Hydroxybutyrate 10/05/17 10/05/17 10/05/17 16:05 16:35 16:50 WBC RBC Hgb Hct MCV MCH MCHC RDW Plt Count MPV Neut % (Auto) Lymph % (Auto) [place] % (Auto) Eos % (Auto) Baso % (Auto) Neut # (Auto) Lymph # (Auto) [place] # (Auto) Eos # (Auto) Baso # (Auto) pO2 22 L VBG pH 7.30 L VBG pCO2 34 L VBG HCO3 16.2 VBG Total CO2 17.7 L VBG O2 Sat (Calc) 40.5 VBG Base Excess -8.8 L VBG Potassium 2.2 L* Glucose 425 H* Lactate 2.4 H FiO2 21.0 Crit Value Called To Dr steel Crit Value Called By [facility] Crit Value Read Back Y Blood Gas Notified Time 1643 Sodium 120.0 L* 113 L* Potassium 3.0 L Chloride 80.0 L 68 L Carbon Dioxide 16 L Anion Gap 32 H BUN 22 H Creatinine 1.0 Est GFR ( Amer) > 60 Est GFR (Non-Af Amer) > 60 POC Glucose (mg/dL) > 500 H* Random Glucose 471 H* Calcium 9.3 Total Bilirubin 1.2 AST 106 H ALT 122 H Alkaline Phosphatase 122 Troponin I Total Protein 7.9 Albumin 4.8 Globulin 3.1 Albumin/Globulin Ratio 1.5 Venous Blood Potassium 2.2 L* Urine Color Urine Clarity Urine pH Ur Specific [place] Urine Protein Urine Glucose (UA) Urine Ketones Urine Blood Urine Nitrate Urine Bilirubin Urine Urobilinogen Ur Leukocyte Esterase Urine WBC (Auto) Urine RBC (Auto) Ur Squamous Epith Cells Urine Bacteria Urine Opiates Screen Urine Methadone Screen Ur Barbiturates Screen Ur Phencyclidine Scrn Ur Amphetamines Screen U Benzodiazepines Scrn U Oth Cocaine Metabols U Cannabinoids Screen Alcohol, Quantitative B-Hydroxybutyrate 10/05/17 10/05/17 10/05/17 17:22 18:11 18:24 WBC RBC Hgb Hct MCV MCH MCHC RDW Plt Count MPV Neut % (Auto) Lymph % (Auto) [place] % (Auto) Eos % (Auto) Baso % (Auto) Neut # (Auto) Lymph # (Auto) [place] # (Auto) Eos # (Auto) Baso # (Auto) pO2 VBG pH VBG pCO2 VBG HCO3 VBG Total CO2 VBG O2 Sat (Calc) VBG Base Excess VBG Potassium Glucose Lactate FiO2 Crit Value Called To Crit Value Called By Crit Value Read Back Blood Gas Notified Time Sodium Potassium Chloride Carbon Dioxide Anion Gap BUN Creatinine Est GFR ( Amer) Est GFR (Non-Af Amer) POC Glucose (mg/dL) Random Glucose Calcium Total Bilirubin AST ALT Alkaline Phosphatase Troponin I < 0.0120 Total Protein Albumin Globulin Albumin/Globulin Ratio Venous Blood Potassium Urine Color Yellow Urine Clarity Clear Urine pH 6.0 Ur Specific [place] 1.013 Urine Protein 2+ H Urine Glucose (UA) 3+ H Urine Ketones 2+ H Urine Blood 1+ H Urine Nitrate Negative Urine Bilirubin Negative Urine Urobilinogen Normal Ur Leukocyte Esterase Neg Urine WBC (Auto) < 1 Urine RBC (Auto) 2 Ur Squamous Epith Cells < 1 Urine Bacteria Rare Urine Opiates Screen Urine Methadone Screen Ur Barbiturates Screen Ur Phencyclidine Scrn Ur Amphetamines Screen U Benzodiazepines Scrn U Oth Cocaine Metabols U Cannabinoids Screen Alcohol, Quantitative B-Hydroxybutyrate 6.69 H 10/05/17 10/05/17 10/05/17 18:24 18:36 18:51 WBC RBC Hgb Hct MCV MCH MCHC RDW Plt Count MPV Neut % (Auto) Lymph % (Auto) [place] % (Auto) Eos % (Auto) Baso % (Auto) Neut # (Auto) Lymph # (Auto) [place] # (Auto) Eos # (Auto) Baso # (Auto) pO2 VBG pH VBG pCO2 VBG HCO3 VBG Total CO2 VBG O2 Sat (Calc) VBG Base Excess VBG Potassium Glucose Lactate FiO2 Crit Value Called To Crit Value Called By Crit Value Read Back Blood Gas Notified Time Sodium Potassium Chloride Carbon Dioxide Anion Gap BUN Creatinine Est GFR ( Amer) Est GFR (Non-Af Amer) POC Glucose (mg/dL) 233 H 226 H Random Glucose Calcium Total Bilirubin AST ALT Alkaline Phosphatase Troponin I Total Protein Albumin Globulin Albumin/Globulin Ratio Venous Blood Potassium Urine Color Urine Clarity Urine pH Ur Specific [place] Urine Protein Urine Glucose (UA) Urine Ketones Urine Blood Urine Nitrate Urine Bilirubin Urine Urobilinogen Ur Leukocyte Esterase Urine WBC (Auto) Urine RBC (Auto) Ur Squamous Epith Cells Urine Bacteria Urine Opiates Screen Negative Urine Methadone Screen Negative Ur Barbiturates Screen Negative Ur Phencyclidine Scrn Negative Ur Amphetamines Screen Negative U Benzodiazepines Scrn Negative U Oth Cocaine Metabols Negative U Cannabinoids Screen Negative Alcohol, Quantitative B-Hydroxybutyrate 10/05/17 19:33 WBC RBC Hgb Hct MCV MCH MCHC RDW Plt Count MPV Neut % (Auto) Lymph % (Auto) [place] % (Auto) Eos % (Auto) Baso % (Auto) Neut # (Auto) Lymph # (Auto) [place] # (Auto) Eos # (Auto) Baso # (Auto) pO2 VBG pH VBG pCO2 VBG HCO3 VBG Total CO2 VBG O2 Sat (Calc) VBG Base Excess VBG Potassium Glucose Lactate FiO2 Crit Value Called To Crit Value Called By Crit Value Read Back Blood Gas Notified Time Sodium Potassium Chloride Carbon Dioxide Anion Gap BUN Creatinine Est GFR ( Amer) Est GFR (Non-Af Amer) POC Glucose (mg/dL) 154 H Random Glucose Calcium Total Bilirubin AST ALT Alkaline Phosphatase Troponin I Total Protein Albumin Globulin Albumin/Globulin Ratio Venous Blood Potassium Urine Color Urine Clarity Urine pH Ur Specific [place] Urine Protein Urine Glucose (UA) Urine Ketones Urine Blood Urine Nitrate Urine Bilirubin Urine Urobilinogen Ur Leukocyte Esterase Urine WBC (Auto) Urine RBC (Auto) Ur Squamous Epith Cells Urine Bacteria Urine Opiates Screen Urine Methadone Screen Ur Barbiturates Screen Ur Phencyclidine Scrn Ur Amphetamines Screen U Benzodiazepines Scrn U Oth Cocaine Metabols U Cannabinoids Screen Alcohol, Quantitative B-Hydroxybutyrate Assessment & Plan - Assessment and Plan (Free Text) Plan: DKA ICU consulted, Dr. Lay * accepted to ICU, medical management per ICU team 2/2 medication non-compliance * pt states he is supposed to take Novolin 3u SC TIDAC and long-acting insulin 40u SC HS * pt admits not taking medication for >1month Initial BS 531 VBG: pH 7.30, Lactate 2.4, glucose 425 Anion Gap: 31 UA: protein 2+, glucose 3+, ketones 2+, blood 1+ * B-Hydroxybutryate 6.69 (elevated, normal 0.02-0.27) Repeat BMP and VBG q4h accuchecks q1h while on insulin drip ED course: 2L bolus of NS, 80meq of K+ (40 IV and 40 PO), insulin drip Medications: * Insulin drip * Switch to D5/NS @250mL once blood glucose <250 Hyponatremia 2/2 to largely elevated blood glucose and dehydration initial Na+ 112 IV hydration with isotonic saline monitor with BMP q4h Hypokalemia repleted continue to monitor and replete as needed Transaminitis likely secondary to alcohol abuse continue to monitor Alcohol Abuse Psych consulted, Dr. Len Watkinsox - negative Urine alcohol < 10 (pt states last drink was 3 days ago) given Librium 50mg PO once in ED Case discussed with Dr. Ashley Paniagua Vilma PGY2
[2017-10-05 23:47] LABS: VENOUS BLOOD GAS BASE EXCESS 2.7 mmol/L (0.0-2.0); VENOUS BLOOD GAS PCO2 36 mmHg (40-60); VENOUS BLOOD GAS PO2 64 mm/Hg (30-55); VENOUS BLOOD PH 7.47 (7.32-7.43)
[2017-10-06 01:14] LABS: BLOOD UREA NITROGEN 17 mg/dL (9-20); CALCIUM 9.4 mg/dl (8.6-10.4); GFR NON-AFRICAN AMERICAN > 60
[2017-10-06] MEDS ORDERED: Potassium Chloride 20 mEq/15 ml LIQ UD PO ONE (01:15)
[2017-10-06] MEDS ORDERED: Pneumococcal 23-Valent Vaccine IM ONE (01:45)
[2017-10-06] MEDS ORDERED: Potassium Chloride 20 mEq ER Tab PO STA (02:49)
[2017-10-06] MEDS: Potassium Chl 20 mEq in D5-NS 1,000 ML IV SCH ×2 (03:40→09:23)
[2017-10-06 07:21] LABS: BASO % 0.5 % (0.0-2.0); EOS % 0.3 % (0.0-4.0); LYMPH # 0.8 K/uL (1.0-4.3); LYMPH % 22.6 % (20.0-40.0); MONO # 0.7 K/uL (0.0-0.8); NEUT # 2.2 K/uL (1.8-7.0); NEUT % 58.6 % (50.0-75.0); NRBC % 0.3 % (0.0-2.0); WHITE BLOOD COUNT 3.7 K/uL (4.8-10.8)
[2017-10-06 07:57] LABS: ALB/GLOB RATIO 1.3 (1.0-2.1); ALBUMIN 3.6 g/dL (3.5-5.0); ALT/SGPT 100 U/L (21-72); AST/SGOT 95 U/L (17-59); BLOOD UREA NITROGEN 17 mg/dL (9-20); CALCIUM 9.2 mg/dl (8.6-10.4); GFR NON-AFRICAN AMERICAN > 60
[2017-10-06 08:03] LABS: MEAN CELL VOLUME 87.3 fL (80.0-94.0); RBC 3.97 Mil/uL (4.40-5.90)
[2017-10-06 08:04] LABS: MEAN CORPUSCULAR HEMOGLOBIN 30.9 pg (27.0-31.0); MEAN CORPUSCULAR HGB CONC 35.4 g/dL (33.0-37.0)
[2017-10-06 08:07] LABS: HEMOGLOBIN 12.2 g/dL (12.0-18.0)
[2017-10-06] MEDS ORDERED: Potassium Phosphate 15 MMOLE in Sodium Chloride 0.9% 250 ML IVPB ONE (08:33)
[2017-10-06] MEDS ORDERED: Insulin Detemir 100 units/ml Vial (Levemir) SC STA (08:35)
[2017-10-06] MEDS ORDERED: (Novolin R) Insulin Human Regular 100 units/ml vial IV ONE (10:34)
[2017-10-06] MEDS: Multiple Vitamins Tab PO SCH (10:47)
[2017-10-06] MEDS: Pantoprazole 40 mg EC Tab PO SCH (10:47)
[2017-10-06] MEDS: Enoxaparin 40 mg Syringe SC SCH (10:47)
--- NOTE | 2017-10-06 11:55 | CP.CCUPN ---
<Bhanu Blanco - Last Filed: 10/06/17 12:43> CCU Subjective - Physician Review Subjective (Free Text): Critical Care Progress Note: Patient seen and examined at bedside. No acute events overnight. Patients anion gap closed this morning and insulin ggt was discontinued. Patient states that he is feeling well. No signs of withdrawals. No complaints. 10/06/17 11:50 CCU Objective - Vital Signs / Intake & Output Vital Signs (Last 4 hours): Vital Signs Temp Pulse Resp BP Pulse Ox 10/06/17 09:40 101 H 15 135/80 99 10/06/17 09:00 114 H 16 95 10/06/17 08:40 98 H 16 126/75 10/06/17 08:00 98.3 F 103 H 13 100 Intake and Output (Last 8hrs): Intake & Output 10/05/17 10/06/17 10/06/17 22:59 06:59 14:59 Intake Total 203 1946 4 Output Total 700 475 Balance -497 1471 4 Weight 163 lb 11.2 oz 163 lb 11.2 oz Intake: IV 11 4 Intake, IV Amount 203 1815 Left AC 3 15 Left forearm 0 200 Right AC 200 1600 Oral 0 120 Output: Urine 700 475 Urine, Voided 0 475 Stool 0 0 Emesis 0 0 Other: Voiding Method Urinal - Physical Exam Head: Positive for: Atraumatic, Normocephalic Pupils: Positive for: PERRL. Negative for: Sluggish, Non-Reactive Extroacular Muscles: Positive for: EOMI Conjunctiva: Positive for: Normal. Negative for: Injected, Icteric Ears: Positive for: Normal Mouth: Positive for: Moist Mucous Membranes Pharnyx: Positive for: Normal. Negative for: ERYTHEMA Nose (Internal): Positive for: Normal Inspection Neck: Positive for: Normal Range of Motion Respiratory/Chest: Positive for: Clear to Auscultation, Good Air Exchange. Negative for: Respiratory Distress, Accessory Muscle Use, Wheezes, Decreased Breath Sounds, Rales Cardiovascular: Positive for: Regular Rate and Rhythm. Negative for: Murmurs Abdomen: Positive for: Normal Bowel Sounds. Negative for: Tenderness, Distention Upper Extremity: Positive for: Normal Inspection, Capillary Refill < 2s Lower Extremity: Positive for: Normal Inspection, Capillary Refill < 2 s Neurological: Positive for: GCS=15, CN II-XII Intact, Speech Normal, Motor Func Grossly Intact Psychiatric: Positive for: Alert, Oriented x 3, Normal Insight, Normal Concentration - Medications Active Medications: Active Medications Generic Name Dose Route Start Last Admin Trade Name Ida PRN Reason Stop Dose Admin Enoxaparin Sodium 40 mg 10/06/17 10:00 10/06/17 10:47 Lovenox SC 40 mg DAILY MATTHEW Administration Folic Acid 1 mg 10/06/17 10:15 10/06/17 10:47 Folic Acid PO 1 mg DAILY MATTHEW Administration Potassium Phosphate 15 mmole/ 255 mls @ 42.5 mls/hr 10/06/17 08:33 10/06/17 09:01 Sodium Chloride IVPB 10/06/17 14:32 42.5 mls/hr ONCE ONE Administration Insulin Human Regular 0 unit 10/06/17 12:00 Novolin R SC Q4 MATTHEW Protocol Lorazepam 1 mg 10/06/17 10:03 Ativan PO Q4H PRN Symptoms of alcohol withdrawl Multivitamins 1 tab 10/06/17 10:15 10/06/17 10:47 Hexavitamin PO 1 tab DAILY MATTHEW Administration Nicotine 1 patch 10/06/17 10:00 10/06/17 10:47 Nicoderm Cq TD 1 patch DAILY MATTHEW Administration Pantoprazole Sodium 40 mg 10/06/17 10:00 10/06/17 10:47 Protonix Ec Tab PO 40 mg DAILY MATTHEW Administration Thiamine HCl 100 mg 10/06/17 10:15 10/06/17 10:47 Vitamin B1 Tab PO 100 mg DAILY MATTHEW Administration - Patient Studies Lab Studies: Lab Studies 10/06/17 10/06/17 10/06/17 Range/Units 07:10 07:10 07:10 WBC 3.7 L (4.8-10.8) K/uL RBC 3.97 L (4.40-5.90) Mil/uL Hgb 12.2 D (12.0-18.0) g/dL Hct 34.6 L (35.0-51.0) % MCV 87.3 (80.0-94.0) fL MCH 30.9 (27.0-31.0) pg MCHC 35.4 (33.0-37.0) g/dL RDW 13.0 (11.5-14.5) % Plt Count 162 (130-400) K/uL MPV 9.0 (7.2-11.7) fL Neut % (Auto) 58.6 (50.0-75.0) % Lymph % (Auto) 22.6 (20.0-40.0) % [place] % (Auto) 18.0 H (0.0-10.0) % Eos % (Auto) 0.3 (0.0-4.0) % Baso % (Auto) 0.5 (0.0-2.0) % Neut # (Auto) 2.2 (1.8-7.0) K/uL Lymph # (Auto) 0.8 L (1.0-4.3) K/uL [place] # (Auto) 0.7 (0.0-0.8) K/uL Eos # (Auto) 0.0 (0.0-0.7) K/uL Baso # (Auto) 0.0 (0.0-0.2) K/uL pO2 (30-55) mm/Hg VBG pH (7.32-7.43) VBG pCO2 (40-60) mmHg VBG HCO3 mmol/L VBG Total CO2 (22-28) mmol/L VBG O2 Sat (Calc) (40-65) % VBG Base Excess (0.0-2.0) mmol/L VBG Potassium (3.6-5.2) mmol/L Glucose (75-110) mg/dl Lactate (0.7-2.1) mmol/L FiO2 % Crit Value Called To Crit Value Called By Crit Value Read Back Blood Gas Notified Time Sodium 127 L (132-148) mmol/L Potassium 3.5 L (3.6-5.2) mmol/L Chloride 94 L (98-107) mmol/L Carbon Dioxide 23 (22-30) mmol/L Anion Gap 13 (10-20) BUN 17 (9-20) mg/dL Creatinine 0.7 L (0.8-1.5) mg/dL Est GFR ( Amer) > 60 Est GFR (Non-Af Amer) > 60 POC Glucose (mg/dL) (65-110) mg/dL Random Glucose 170 H (75-110) mg/dL Hemoglobin A1c 6.1 (4.2-6.5) % Calcium 9.2 (8.6-10.4) mg/dl Phosphorus < 0.5 L* (2.5-4.5) mg/dL Magnesium 2.6 H (1.6-2.3) mg/dL Total Bilirubin 0.8 (0.2-1.3) mg/dL AST 95 H (17-59) U/L ALT 100 H (21-72) U/L Alkaline Phosphatase 89 (38-126) U/L Troponin I (0.00-0.120) ng/mL Total Protein 6.4 (6.3-8.3) g/dL Albumin 3.6 (3.5-5.0) g/dL Globulin 2.8 (2.2-3.9) gm/dL Albumin/Globulin Ratio 1.3 (1.0-2.1) Venous Blood Potassium (3.6-5.2) mmol/L Urine Color (YELLOW) Urine Clarity (Clear) Urine pH (5.0-8.0) Ur Specific [place] (1.003-1.030) Urine Protein (NEGATIVE) mg/dL Urine Glucose (UA) (Normal) mg/dL Urine Ketones (NEGATIVE) mg/dL Urine Blood (NEGATIVE) Urine Nitrate (NEGATIVE) Urine Bilirubin (NEGATIVE) Urine Urobilinogen (0.2-1.0) mg/dL Ur Leukocyte Esterase (Negative) Brijesh/uL Urine WBC (Auto) (0-5) /hpf Urine RBC (Auto) (0-3) /hpf Ur Squamous Epith Cells (0-5) /hpf Urine Bacteria (<OCC) Urine Opiates Screen (NEGATIVE) Urine Methadone Screen (NEGATIVE) Ur Barbiturates Screen (NEGATIVE) Ur Phencyclidine Scrn (NEGATIVE) Ur Amphetamines Screen (NEGATIVE) U Benzodiazepines Scrn (NEGATIVE) U Oth Cocaine Metabols (NEGATIVE) U Cannabinoids Screen (NEGATIVE) Alcohol, Quantitative (0-10) mg/dl B-Hydroxybutyrate (0.02-0.27) mM 10/06/17 10/06/17 10/06/17 Range/Units 02:36 01:05 00:16 WBC (4.8-10.8) K/uL RBC (4.40-5.90) Mil/uL Hgb (12.0-18.0) g/dL Hct (35.0-51.0) % MCV (80.0-94.0) fL MCH (27.0-31.0) pg MCHC (33.0-37.0) g/dL RDW (11.5-14.5) % Plt Count (130-400) K/uL MPV (7.2-11.7) fL Neut % (Auto) (50.0-75.0) % Lymph % (Auto) (20.0-40.0) % [place] % (Auto) (0.0-10.0) % Eos % (Auto) (0.0-4.0) % Baso % (Auto) (0.0-2.0) % Neut # (Auto) (1.8-7.0) K/uL Lymph # (Auto) (1.0-4.3) K/uL [place] # (Auto) (0.0-0.8) K/uL Eos # (Auto) (0.0-0.7) K/uL Baso # (Auto) (0.0-0.2) K/uL pO2 (30-55) mm/Hg VBG pH (7.32-7.43) VBG pCO2 (40-60) mmHg VBG HCO3 mmol/L VBG Total CO2 (22-28) mmol/L VBG O2 Sat (Calc) (40-65) % VBG Base Excess (0.0-2.0) mmol/L VBG Potassium (3.6-5.2) mmol/L Glucose (75-110) mg/dl Lactate (0.7-2.1) mmol/L FiO2 % Crit Value Called To Crit Value Called By Crit Value Read Back Blood Gas Notified Time Sodium (132-148) mmol/L Potassium (3.6-5.2) mmol/L Chloride (98-107) mmol/L Carbon Dioxide (22-30) mmol/L Anion Gap (10-20) BUN (9-20) mg/dL Creatinine (0.8-1.5) mg/dL Est GFR ( Amer) Est GFR (Non-Af Amer) POC Glucose (mg/dL) 149 H 168 H 161 H (65-110) mg/dL Random Glucose (75-110) mg/dL Hemoglobin A1c (4.2-6.5) % Calcium (8.6-10.4) mg/dl Phosphorus (2.5-4.5) mg/dL Magnesium (1.6-2.3) mg/dL Total Bilirubin (0.2-1.3) mg/dL AST (17-59) U/L ALT (21-72) U/L Alkaline Phosphatase (38-126) U/L Troponin I (0.00-0.120) ng/mL Total Protein (6.3-8.3) g/dL Albumin (3.5-5.0) g/dL Globulin (2.2-3.9) gm/dL Albumin/Globulin Ratio (1.0-2.1) Venous Blood Potassium (3.6-5.2) mmol/L Urine Color (YELLOW) Urine Clarity (Clear) Urine pH (5.0-8.0) Ur Specific [place] (1.003-1.030) Urine Protein (NEGATIVE) mg/dL Urine Glucose (UA) (Normal) mg/dL Urine Ketones (NEGATIVE) mg/dL Urine Blood (NEGATIVE) Urine Nitrate (NEGATIVE) Urine Bilirubin (NEGATIVE) Urine Urobilinogen (0.2-1.0) mg/dL Ur Leukocyte Esterase (Negative) Brijesh/uL Urine WBC (Auto) (0-5) /hpf Urine RBC (Auto) (0-3) /hpf Ur Squamous Epith Cells (0-5) /hpf Urine Bacteria (<OCC) Urine Opiates Screen (NEGATIVE) Urine Methadone Screen (NEGATIVE) Ur Barbiturates Screen (NEGATIVE) Ur Phencyclidine Scrn (NEGATIVE) Ur Amphetamines Screen (NEGATIVE) U Benzodiazepines Scrn (NEGATIVE) U Oth Cocaine Metabols (NEGATIVE) U Cannabinoids Screen (NEGATIVE) Alcohol, Quantitative (0-10) mg/dl B-Hydroxybutyrate (0.02-0.27) mM 10/06/17 10/05/17 10/05/17 Range/Units 00:07 23:48 23:43 WBC (4.8-10.8) K/uL RBC (4.40-5.90) Mil/uL Hgb (12.0-18.0) g/dL Hct (35.0-51.0) % MCV (80.0-94.0) fL MCH (27.0-31.0) pg MCHC (33.0-37.0) g/dL RDW (11.5-14.5) % Plt Count (130-400) K/uL MPV (7.2-11.7) fL Neut % (Auto) (50.0-75.0) % Lymph % (Auto) (20.0-40.0) % [place] % (Auto) (0.0-10.0) % Eos % (Auto) (0.0-4.0) % Baso % (Auto) (0.0-2.0) % Neut # (Auto) (1.8-7.0) K/uL Lymph # (Auto) (1.0-4.3) K/uL [place] # (Auto) (0.0-0.8) K/uL Eos # (Auto) (0.0-0.7) K/uL Baso # (Auto) (0.0-0.2) K/uL pO2 64 H (30-55) mm/Hg VBG pH 7.47 H (7.32-7.43) VBG pCO2 36 L (40-60) mmHg VBG HCO3 26.9 mmol/L VBG Total CO2 27.3 (22-28) mmol/L VBG O2 Sat (Calc) 95.8 H (40-65) % VBG Base Excess 2.7 H (0.0-2.0) mmol/L VBG Potassium 2.9 L (3.6-5.2) mmol/L Glucose 202 H (75-110) mg/dl Lactate 1.4 (0.7-2.1) mmol/L FiO2 % Crit Value Called To Crit Value Called By Crit Value Read Back Blood Gas Notified Time Sodium 124 L 123.0 L (132-148) mmol/L Potassium 3.0 L (3.6-5.2) mmol/L Chloride 86 L D 87.0 L (98-107) mmol/L Carbon Dioxide 27 (22-30) mmol/L Anion Gap 14 (10-20) BUN 17 (9-20) mg/dL Creatinine 0.8 (0.8-1.5) mg/dL Est GFR ( Amer) > 60 Est GFR (Non-Af Amer) > 60 POC Glucose (mg/dL) 172 H (65-110) mg/dL Random Glucose 190 H (75-110) mg/dL Hemoglobin A1c (4.2-6.5) % Calcium 9.4 (8.6-10.4) mg/dl Phosphorus (2.5-4.5) mg/dL Magnesium (1.6-2.3) mg/dL Total Bilirubin (0.2-1.3) mg/dL AST (17-59) U/L ALT (21-72) U/L Alkaline Phosphatase (38-126) U/L Troponin I (0.00-0.120) ng/mL Total Protein (6.3-8.3) g/dL Albumin (3.5-5.0) g/dL Globulin (2.2-3.9) gm/dL Albumin/Globulin Ratio (1.0-2.1) Venous Blood Potassium 2.9 L (3.6-5.2) mmol/L Urine Color (YELLOW) Urine Clarity (Clear) Urine pH (5.0-8.0) Ur Specific [place] (1.003-1.030) Urine Protein (NEGATIVE) mg/dL Urine Glucose (UA) (Normal) mg/dL Urine Ketones (NEGATIVE) mg/dL Urine Blood (NEGATIVE) Urine Nitrate (NEGATIVE) Urine Bilirubin (NEGATIVE) Urine Urobilinogen (0.2-1.0) mg/dL Ur Leukocyte Esterase (Negative) Brijesh/uL Urine WBC (Auto) (0-5) /hpf Urine RBC (Auto) (0-3) /hpf Ur Squamous Epith Cells (0-5) /hpf Urine Bacteria (<OCC) Urine Opiates Screen (NEGATIVE) Urine Methadone Screen (NEGATIVE) Ur Barbiturates Screen (NEGATIVE) Ur Phencyclidine Scrn (NEGATIVE) Ur Amphetamines Screen (NEGATIVE) U Benzodiazepines Scrn (NEGATIVE) U Oth Cocaine Metabols (NEGATIVE) U Cannabinoids Screen (NEGATIVE) Alcohol, Quantitative (0-10) mg/dl B-Hydroxybutyrate (0.02-0.27) mM 10/05/17 10/05/17 10/05/17 Range/Units 22:07 21:10 19:33 WBC (4.8-10.8) K/uL RBC (4.40-5.90) Mil/uL Hgb (12.0-18.0) g/dL Hct (35.0-51.0) % MCV (80.0-94.0) fL MCH (27.0-31.0) pg MCHC (33.0-37.0) g/dL RDW (11.5-14.5) % Plt Count (130-400) K/uL MPV (7.2-11.7) fL Neut % (Auto) (50.0-75.0) % Lymph % (Auto) (20.0-40.0) % [place] % (Auto) (0.0-10.0) % Eos % (Auto) (0.0-4.0) % Baso % (Auto) (0.0-2.0) % Neut # (Auto) (1.8-7.0) K/uL Lymph # (Auto) (1.0-4.3) K/uL [place] # (Auto) (0.0-0.8) K/uL Eos # (Auto) (0.0-0.7) K/uL Baso # (Auto) (0.0-0.2) K/uL pO2 (30-55) mm/Hg VBG pH (7.32-7.43) VBG pCO2 (40-60) mmHg VBG HCO3 mmol/L VBG Total CO2 (22-28) mmol/L VBG O2 Sat (Calc) (40-65) % VBG Base Excess (0.0-2.0) mmol/L VBG Potassium (3.6-5.2) mmol/L Glucose (75-110) mg/dl Lactate (0.7-2.1) mmol/L FiO2 % Crit Value Called To Crit Value Called By Crit Value Read Back Blood Gas Notified Time Sodium (132-148) mmol/L Potassium (3.6-5.2) mmol/L Chloride (98-107) mmol/L Carbon Dioxide (22-30) mmol/L Anion Gap (10-20) BUN (9-20) mg/dL Creatinine (0.8-1.5) mg/dL Est GFR ( Amer) Est GFR (Non-Af Amer) POC Glucose (mg/dL) 223 H 199 H 154 H (65-110) mg/dL Random Glucose (75-110) mg/dL Hemoglobin A1c (4.2-6.5) % Calcium (8.6-10.4) mg/dl Phosphorus (2.5-4.5) mg/dL Magnesium (1.6-2.3) mg/dL Total Bilirubin (0.2-1.3) mg/dL AST (17-59) U/L ALT (21-72) U/L Alkaline Phosphatase (38-126) U/L Troponin I (0.00-0.120) ng/mL Total Protein (6.3-8.3) g/dL Albumin (3.5-5.0) g/dL Globulin (2.2-3.9) gm/dL Albumin/Globulin Ratio (1.0-2.1) Venous Blood Potassium (3.6-5.2) mmol/L Urine Color (YELLOW) Urine Clarity (Clear) Urine pH (5.0-8.0) Ur Specific [place] (1.003-1.030) Urine Protein (NEGATIVE) mg/dL Urine Glucose (UA) (Normal) mg/dL Urine Ketones (NEGATIVE) mg/dL Urine Blood (NEGATIVE) Urine Nitrate (NEGATIVE) Urine Bilirubin (NEGATIVE) Urine Urobilinogen (0.2-1.0) mg/dL Ur Leukocyte Esterase (Negative) Brijesh/uL Urine WBC (Auto) (0-5) /hpf Urine RBC (Auto) (0-3) /hpf Ur Squamous Epith Cells (0-5) /hpf Urine Bacteria (<OCC) Urine Opiates Screen (NEGATIVE) Urine Methadone Screen (NEGATIVE) Ur Barbiturates Screen (NEGATIVE) Ur Phencyclidine Scrn (NEGATIVE) Ur Amphetamines Screen (NEGATIVE) U Benzodiazepines Scrn (NEGATIVE) U Oth Cocaine Metabols (NEGATIVE) U Cannabinoids Screen (NEGATIVE) Alcohol, Quantitative (0-10) mg/dl B-Hydroxybutyrate (0.02-0.27) mM 10/05/17 10/05/17 10/05/17 Range/Units 18:51 18:36 18:24 WBC (4.8-10.8) K/uL RBC (4.40-5.90) Mil/uL Hgb (12.0-18.0) g/dL Hct (35.0-51.0) % MCV (80.0-94.0) fL MCH (27.0-31.0) pg MCHC (33.0-37.0) g/dL RDW (11.5-14.5) % Plt Count (130-400) K/uL MPV (7.2-11.7) fL Neut % (Auto) (50.0-75.0) % Lymph % (Auto) (20.0-40.0) % [place] % (Auto) (0.0-10.0) % Eos % (Auto) (0.0-4.0) % Baso % (Auto) (0.0-2.0) % Neut # (Auto) (1.8-7.0) K/uL Lymph # (Auto) (1.0-4.3) K/uL [place] # (Auto) (0.0-0.8) K/uL Eos # (Auto) (0.0-0.7) K/uL Baso # (Auto) (0.0-0.2) K/uL pO2 (30-55) mm/Hg VBG pH (7.32-7.43) VBG pCO2 (40-60) mmHg VBG HCO3 mmol/L VBG Total CO2 (22-28) mmol/L VBG O2 Sat (Calc) (40-65) % VBG Base Excess (0.0-2.0) mmol/L VBG Potassium (3.6-5.2) mmol/L Glucose (75-110) mg/dl Lactate (0.7-2.1) mmol/L FiO2 % Crit Value Called To Crit Value Called By Crit Value Read Back Blood Gas Notified Time Sodium (132-148) mmol/L Potassium (3.6-5.2) mmol/L Chloride (98-107) mmol/L Carbon Dioxide (22-30) mmol/L Anion Gap (10-20) BUN (9-20) mg/dL Creatinine (0.8-1.5) mg/dL Est GFR ( Amer) Est GFR (Non-Af Amer) POC Glucose (mg/dL) 226 H 233 H (65-110) mg/dL Random Glucose (75-110) mg/dL Hemoglobin A1c (4.2-6.5) % Calcium (8.6-10.4) mg/dl Phosphorus (2.5-4.5) mg/dL Magnesium (1.6-2.3) mg/dL Total Bilirubin (0.2-1.3) mg/dL AST (17-59) U/L ALT (21-72) U/L Alkaline Phosphatase (38-126) U/L Troponin I (0.00-0.120) ng/mL Total Protein (6.3-8.3) g/dL Albumin (3.5-5.0) g/dL Globulin (2.2-3.9) gm/dL Albumin/Globulin Ratio (1.0-2.1) Venous Blood Potassium (3.6-5.2) mmol/L Urine Color (YELLOW) Urine Clarity (Clear) Urine pH (5.0-8.0) Ur Specific [place] (1.003-1.030) Urine Protein (NEGATIVE) mg/dL Urine Glucose (UA) (Normal) mg/dL Urine Ketones (NEGATIVE) mg/dL Urine Blood (NEGATIVE) Urine Nitrate (NEGATIVE) Urine Bilirubin (NEGATIVE) Urine Urobilinogen (0.2-1.0) mg/dL Ur Leukocyte Esterase (Negative) Brijesh/uL Urine WBC (Auto) (0-5) /hpf Urine RBC (Auto) (0-3) /hpf Ur Squamous Epith Cells (0-5) /hpf Urine Bacteria (<OCC) Urine Opiates Screen Negative (NEGATIVE) Urine Methadone Screen Negative (NEGATIVE) Ur Barbiturates Screen Negative (NEGATIVE) Ur Phencyclidine Scrn Negative (NEGATIVE) Ur Amphetamines Screen Negative (NEGATIVE) U Benzodiazepines Scrn Negative (NEGATIVE) U Oth Cocaine Metabols Negative (NEGATIVE) U Cannabinoids Screen Negative (NEGATIVE) Alcohol, Quantitative (0-10) mg/dl B-Hydroxybutyrate (0.02-0.27) mM 10/05/17 10/05/17 10/05/17 Range/Units 18:24 18:11 17:22 WBC (4.8-10.8) K/uL RBC (4.40-5.90) Mil/uL Hgb (12.0-18.0) g/dL Hct (35.0-51.0) % MCV (80.0-94.0) fL MCH (27.0-31.0) pg MCHC (33.0-37.0) g/dL RDW (11.5-14.5) % Plt Count (130-400) K/uL MPV (7.2-11.7) fL Neut % (Auto) (50.0-75.0) % Lymph % (Auto) (20.0-40.0) % [place] % (Auto) (0.0-10.0) % Eos % (Auto) (0.0-4.0) % Baso % (Auto) (0.0-2.0) % Neut # (Auto) (1.8-7.0) K/uL Lymph # (Auto) (1.0-4.3) K/uL [place] # (Auto) (0.0-0.8) K/uL Eos # (Auto) (0.0-0.7) K/uL Baso # (Auto) (0.0-0.2) K/uL pO2 (30-55) mm/Hg VBG pH (7.32-7.43) VBG pCO2 (40-60) mmHg VBG HCO3 mmol/L VBG Total CO2 (22-28) mmol/L VBG O2 Sat (Calc) (40-65) % VBG Base Excess (0.0-2.0) mmol/L VBG Potassium (3.6-5.2) mmol/L Glucose (75-110) mg/dl Lactate (0.7-2.1) mmol/L FiO2 % Crit Value Called To Crit Value Called By Crit Value Read Back Blood Gas Notified Time Sodium (132-148) mmol/L Potassium (3.6-5.2) mmol/L Chloride (98-107) mmol/L Carbon Dioxide (22-30) mmol/L Anion Gap (10-20) BUN (9-20) mg/dL Creatinine (0.8-1.5) mg/dL Est GFR ( Amer) Est GFR (Non-Af Amer) POC Glucose (mg/dL) (65-110) mg/dL Random Glucose (75-110) mg/dL Hemoglobin A1c (4.2-6.5) % Calcium (8.6-10.4) mg/dl Phosphorus (2.5-4.5) mg/dL Magnesium (1.6-2.3) mg/dL Total Bilirubin (0.2-1.3) mg/dL AST (17-59) U/L ALT (21-72) U/L Alkaline Phosphatase (38-126) U/L Troponin I < 0.0120 (0.00-0.120) ng/mL Total Protein (6.3-8.3) g/dL Albumin (3.5-5.0) g/dL Globulin (2.2-3.9) gm/dL Albumin/Globulin Ratio (1.0-2.1) Venous Blood Potassium (3.6-5.2) mmol/L Urine Color Yellow (YELLOW) Urine Clarity Clear (Clear) Urine pH 6.0 (5.0-8.0) Ur Specific [place] 1.013 (1.003-1.030) Urine Protein 2+ H (NEGATIVE) mg/dL Urine Glucose (UA) 3+ H (Normal) mg/dL Urine Ketones 2+ H (NEGATIVE) mg/dL Urine Blood 1+ H (NEGATIVE) Urine Nitrate Negative (NEGATIVE) Urine Bilirubin Negative (NEGATIVE) Urine Urobilinogen Normal (0.2-1.0) mg/dL Ur Leukocyte Esterase Neg (Negative) Brijesh/uL Urine WBC (Auto) < 1 (0-5) /hpf Urine RBC (Auto) 2 (0-3) /hpf Ur Squamous Epith Cells < 1 (0-5) /hpf Urine Bacteria Rare (<OCC) Urine Opiates Screen (NEGATIVE) Urine Methadone Screen (NEGATIVE) Ur Barbiturates Screen (NEGATIVE) Ur Phencyclidine Scrn (NEGATIVE) Ur Amphetamines Screen (NEGATIVE) U Benzodiazepines Scrn (NEGATIVE) U Oth Cocaine Metabols (NEGATIVE) U Cannabinoids Screen (NEGATIVE) Alcohol, Quantitative (0-10) mg/dl B-Hydroxybutyrate 6.69 H (0.02-0.27) mM 10/05/17 10/05/17 10/05/17 Range/Units 16:50 16:35 16:05 WBC (4.8-10.8) K/uL RBC (4.40-5.90) Mil/uL Hgb (12.0-18.0) g/dL Hct (35.0-51.0) % MCV (80.0-94.0) fL MCH (27.0-31.0) pg MCHC (33.0-37.0) g/dL RDW (11.5-14.5) % Plt Count (130-400) K/uL MPV (7.2-11.7) fL Neut % (Auto) (50.0-75.0) % Lymph % (Auto) (20.0-40.0) % [place] % (Auto) (0.0-10.0) % Eos % (Auto) (0.0-4.0) % Baso % (Auto) (0.0-2.0) % Neut # (Auto) (1.8-7.0) K/uL Lymph # (Auto) (1.0-4.3) K/uL [place] # (Auto) (0.0-0.8) K/uL Eos # (Auto) (0.0-0.7) K/uL Baso # (Auto) (0.0-0.2) K/uL pO2 22 L (30-55) mm/Hg VBG pH 7.30 L (7.32-7.43) VBG pCO2 34 L (40-60) mmHg VBG HCO3 16.2 mmol/L VBG Total CO2 17.7 L (22-28) mmol/L VBG O2 Sat (Calc) 40.5 (40-65) % VBG Base Excess -8.8 L (0.0-2.0) mmol/L VBG Potassium 2.2 L* (3.6-5.2) mmol/L Glucose 425 H* (75-110) mg/dl Lactate 2.4 H (0.7-2.1) mmol/L FiO2 21.0 % Crit Value Called To Dr steel Crit Value Called By [facility] Crit Value Read Back Y Blood Gas Notified Time 1643 Sodium 113 L* 120.0 L* (132-148) mmol/L Potassium 3.0 L (3.6-5.2) mmol/L Chloride 68 L 80.0 L (98-107) mmol/L Carbon Dioxide 16 L (22-30) mmol/L Anion Gap 32 H (10-20) BUN 22 H (9-20) mg/dL Creatinine 1.0 (0.8-1.5) mg/dL Est GFR ( Amer) > 60 Est GFR (Non-Af Amer) > 60 POC Glucose (mg/dL) > 500 H* (65-110) mg/dL Random Glucose 471 H* (75-110) mg/dL Hemoglobin A1c (4.2-6.5) % Calcium 9.3 (8.6-10.4) mg/dl Phosphorus (2.5-4.5) mg/dL Magnesium (1.6-2.3) mg/dL Total Bilirubin 1.2 (0.2-1.3) mg/dL AST 106 H (17-59) U/L ALT 122 H (21-72) U/L Alkaline Phosphatase 122 (38-126) U/L Troponin I (0.00-0.120) ng/mL Total Protein 7.9 (6.3-8.3) g/dL Albumin 4.8 (3.5-5.0) g/dL Globulin 3.1 (2.2-3.9) gm/dL Albumin/Globulin Ratio 1.5 (1.0-2.1) Venous Blood Potassium 2.2 L* (3.6-5.2) mmol/L Urine Color (YELLOW) Urine Clarity (Clear) Urine pH (5.0-8.0) Ur Specific [place] (1.003-1.030) Urine Protein (NEGATIVE) mg/dL Urine Glucose (UA) (Normal) mg/dL Urine Ketones (NEGATIVE) mg/dL Urine Blood (NEGATIVE) Urine Nitrate (NEGATIVE) Urine Bilirubin (NEGATIVE) Urine Urobilinogen (0.2-1.0) mg/dL Ur Leukocyte Esterase (Negative) Brijesh/uL Urine WBC (Auto) (0-5) /hpf Urine RBC (Auto) (0-3) /hpf Ur Squamous Epith Cells (0-5) /hpf Urine Bacteria (<OCC) Urine Opiates Screen (NEGATIVE) Urine Methadone Screen (NEGATIVE) Ur Barbiturates Screen (NEGATIVE) Ur Phencyclidine Scrn (NEGATIVE) Ur Amphetamines Screen (NEGATIVE) U Benzodiazepines Scrn (NEGATIVE) U Oth Cocaine Metabols (NEGATIVE) U Cannabinoids Screen (NEGATIVE) Alcohol, Quantitative (0-10) mg/dl B-Hydroxybutyrate (0.02-0.27) mM 10/05/17 10/05/17 10/05/17 Range/Units 16:02 15:51 15:51 WBC 4.7 L (4.8-10.8) K/uL RBC 4.85 (4.40-5.90) Mil/uL Hgb 15.0 (12.0-18.0) g/dL Hct 42.1 (35.0-51.0) % MCV 86.9 D (80.0-94.0) fL MCH 30.9 (27.0-31.0) pg MCHC 35.5 (33.0-37.0) g/dL RDW 12.9 (11.5-14.5) % Plt Count 172 (130-400) K/uL MPV 9.0 (7.2-11.7) fL Neut % (Auto) 69.5 (50.0-75.0) % Lymph % (Auto) 12.8 L (20.0-40.0) % [place] % (Auto) 17.3 H (0.0-10.0) % Eos % (Auto) 0.1 (0.0-4.0) % Baso % (Auto) 0.3 (0.0-2.0) % Neut # (Auto) 3.3 (1.8-7.0) K/uL Lymph # (Auto) 0.6 L (1.0-4.3) K/uL [place] # (Auto) 0.8 (0.0-0.8) K/uL Eos # (Auto) 0.0 (0.0-0.7) K/uL Baso # (Auto) 0.0 (0.0-0.2) K/uL pO2 (30-55) mm/Hg VBG pH (7.32-7.43) VBG pCO2 (40-60) mmHg VBG HCO3 mmol/L VBG Total CO2 (22-28) mmol/L VBG O2 Sat (Calc) (40-65) % VBG Base Excess (0.0-2.0) mmol/L VBG Potassium (3.6-5.2) mmol/L Glucose (75-110) mg/dl Lactate (0.7-2.1) mmol/L FiO2 % Crit Value Called To Crit Value Called By Crit Value Read Back Blood Gas Notified Time Sodium 112 L* (132-148) mmol/L Potassium 3.1 L (3.6-5.2) mmol/L Chloride 65 L D (98-107) mmol/L Carbon Dioxide 16 L (22-30) mmol/L Anion Gap 34 H (10-20) BUN 22 H (9-20) mg/dL Creatinine 1.1 (0.8-1.5) mg/dL Est GFR ( Amer) > 60 Est GFR (Non-Af Amer) > 60 POC Glucose (mg/dL) > 500 H* (65-110) mg/dL Random Glucose 531 H* D (75-110) mg/dL Hemoglobin A1c (4.2-6.5) % Calcium 9.9 (8.6-10.4) mg/dl Phosphorus (2.5-4.5) mg/dL Magnesium (1.6-2.3) mg/dL Total Bilirubin 1.3 (0.2-1.3) mg/dL AST 111 H D (17-59) U/L ALT 137 H D (21-72) U/L Alkaline Phosphatase 138 H (38-126) U/L Troponin I (0.00-0.120) ng/mL Total Protein 8.6 H (6.3-8.3) g/dL Albumin 5.2 H D (3.5-5.0) g/dL Globulin 3.4 (2.2-3.9) gm/dL Albumin/Globulin Ratio 1.5 (1.0-2.1) Venous Blood Potassium (3.6-5.2) mmol/L Urine Color (YELLOW) Urine Clarity (Clear) Urine pH (5.0-8.0) Ur Specific [place] (1.003-1.030) Urine Protein (NEGATIVE) mg/dL Urine Glucose (UA) (Normal) mg/dL Urine Ketones (NEGATIVE) mg/dL Urine Blood (NEGATIVE) Urine Nitrate (NEGATIVE) Urine Bilirubin (NEGATIVE) Urine Urobilinogen (0.2-1.0) mg/dL Ur Leukocyte Esterase (Negative) Brijesh/uL Urine WBC (Auto) (0-5) /hpf Urine RBC (Auto) (0-3) /hpf Ur Squamous Epith Cells (0-5) /hpf Urine Bacteria (<OCC) Urine Opiates Screen (NEGATIVE) Urine Methadone Screen (NEGATIVE) Ur Barbiturates Screen (NEGATIVE) Ur Phencyclidine Scrn (NEGATIVE) Ur Amphetamines Screen (NEGATIVE) U Benzodiazepines Scrn (NEGATIVE) U Oth Cocaine Metabols (NEGATIVE) U Cannabinoids Screen (NEGATIVE) Alcohol, Quantitative < 10 (0-10) mg/dl B-Hydroxybutyrate (0.02-0.27) mM Laboratory Results - last 24 hr 10/05/17 10/05/17 10/05/17 15:51 15:51 16:02 WBC 4.7 L RBC 4.85 Hgb 15.0 Hct 42.1 MCV 86.9 D MCH 30.9 MCHC 35.5 RDW 12.9 Plt Count 172 MPV 9.0 Neut % (Auto) 69.5 Lymph % (Auto) 12.8 L [place] % (Auto) 17.3 H Eos % (Auto) 0.1 Baso % (Auto) 0.3 Neut # (Auto) 3.3 Lymph # (Auto) 0.6 L [place] # (Auto) 0.8 Eos # (Auto) 0.0 Baso # (Auto) 0.0 pO2 VBG pH VBG pCO2 VBG HCO3 VBG Total CO2 VBG O2 Sat (Calc) VBG Base Excess VBG Potassium Glucose Lactate FiO2 Crit Value Called To Crit Value Called By Crit Value Read Back Blood Gas Notified Time Sodium 112 L* Potassium 3.1 L Chloride 65 L D Carbon Dioxide 16 L Anion Gap 34 H BUN 22 H Creatinine 1.1 Est GFR ( Amer) > 60 Est GFR (Non-Af Amer) > 60 POC Glucose (mg/dL) > 500 H* Random Glucose 531 H* D Hemoglobin A1c Calcium 9.9 Phosphorus Magnesium Total Bilirubin 1.3 AST 111 H D ALT 137 H D Alkaline Phosphatase 138 H Troponin I Total Protein 8.6 H Albumin 5.2 H D Globulin 3.4 Albumin/Globulin Ratio 1.5 Venous Blood Potassium Urine Color Urine Clarity Urine pH Ur Specific [place] Urine Protein Urine Glucose (UA) Urine Ketones Urine Blood Urine Nitrate Urine Bilirubin Urine Urobilinogen Ur Leukocyte Esterase Urine WBC (Auto) Urine RBC (Auto) Ur Squamous Epith Cells Urine Bacteria Urine Opiates Screen Urine Methadone Screen Ur Barbiturates Screen Ur Phencyclidine Scrn Ur Amphetamines Screen U Benzodiazepines Scrn U Oth Cocaine Metabols U Cannabinoids Screen Alcohol, Quantitative < 10 B-Hydroxybutyrate 10/05/17 10/05/17 10/05/17 16:05 16:35 16:50 WBC RBC Hgb Hct MCV MCH MCHC RDW Plt Count MPV Neut % (Auto) Lymph % (Auto) [place] % (Auto) Eos % (Auto) Baso % (Auto) Neut # (Auto) Lymph # (Auto) [place] # (Auto) Eos # (Auto) Baso # (Auto) pO2 22 L VBG pH 7.30 L VBG pCO2 34 L VBG HCO3 16.2 VBG Total CO2 17.7 L VBG O2 Sat (Calc) 40.5 VBG Base Excess -8.8 L VBG Potassium 2.2 L* Glucose 425 H* Lactate 2.4 H FiO2 21.0 Crit Value Called To Dr steel Crit Value Called By [facility] Crit Value Read Back Y Blood Gas Notified Time 1643 Sodium 120.0 L* 113 L* Potassium 3.0 L Chloride 80.0 L 68 L Carbon Dioxide 16 L Anion Gap 32 H BUN 22 H Creatinine 1.0 Est GFR ( Amer) > 60 Est GFR (Non-Af Amer) > 60 POC Glucose (mg/dL) > 500 H* Random Glucose 471 H* Hemoglobin A1c Calcium 9.3 Phosphorus Magnesium Total Bilirubin 1.2 AST 106 H ALT 122 H Alkaline Phosphatase 122 Troponin I Total Protein 7.9 Albumin 4.8 Globulin 3.1 Albumin/Globulin Ratio 1.5 Venous Blood Potassium 2.2 L* Urine Color Urine Clarity Urine pH Ur Specific [place] Urine Protein Urine Glucose (UA) Urine Ketones Urine Blood Urine Nitrate Urine Bilirubin Urine Urobilinogen Ur Leukocyte Esterase Urine WBC (Auto) Urine RBC (Auto) Ur Squamous Epith Cells Urine Bacteria Urine Opiates Screen Urine Methadone Screen Ur Barbiturates Screen Ur Phencyclidine Scrn Ur Amphetamines Screen U Benzodiazepines Scrn U Oth Cocaine Metabols U Cannabinoids Screen Alcohol, Quantitative B-Hydroxybutyrate 10/05/17 10/05/17 10/05/17 17:22 18:11 18:24 WBC RBC Hgb Hct MCV MCH MCHC RDW Plt Count MPV Neut % (Auto) Lymph % (Auto) [place] % (Auto) Eos % (Auto) Baso % (Auto) Neut # (Auto) Lymph # (Auto) [place] # (Auto) Eos # (Auto) Baso # (Auto) pO2 VBG pH VBG pCO2 VBG HCO3 VBG Total CO2 VBG O2 Sat (Calc) VBG Base Excess VBG Potassium Glucose Lactate FiO2 Crit Value Called To Crit Value Called By Crit Value Read Back Blood Gas Notified Time Sodium Potassium Chloride Carbon Dioxide Anion Gap BUN Creatinine Est GFR ( Amer) Est GFR (Non-Af Amer) POC Glucose (mg/dL) Random Glucose Hemoglobin A1c Calcium Phosphorus Magnesium Total Bilirubin AST ALT Alkaline Phosphatase Troponin I < 0.0120 Total Protein Albumin Globulin Albumin/Globulin Ratio Venous Blood Potassium Urine Color Yellow Urine Clarity Clear Urine pH 6.0 Ur Specific [place] 1.013 Urine Protein 2+ H Urine Glucose (UA) 3+ H Urine Ketones 2+ H Urine Blood 1+ H Urine Nitrate Negative Urine Bilirubin Negative Urine Urobilinogen Normal Ur Leukocyte Esterase Neg Urine WBC (Auto) < 1 Urine RBC (Auto) 2 Ur Squamous Epith Cells < 1 Urine Bacteria Rare Urine Opiates Screen Urine Methadone Screen Ur Barbiturates Screen Ur Phencyclidine Scrn Ur Amphetamines Screen U Benzodiazepines Scrn U Oth Cocaine Metabols U Cannabinoids Screen Alcohol, Quantitative B-Hydroxybutyrate 6.69 H 10/05/17 10/05/17 10/05/17 18:24 18:36 18:51 WBC RBC Hgb Hct MCV MCH MCHC RDW Plt Count MPV Neut % (Auto) Lymph % (Auto) [place] % (Auto) Eos % (Auto) Baso % (Auto) Neut # (Auto) Lymph # (Auto) [place] # (Auto) Eos # (Auto) Baso # (Auto) pO2 VBG pH VBG pCO2 VBG HCO3 VBG Total CO2 VBG O2 Sat (Calc) VBG Base Excess VBG Potassium Glucose Lactate FiO2 Crit Value Called To Crit Value Called By Crit Value Read Back Blood Gas Notified Time Sodium Potassium Chloride Carbon Dioxide Anion Gap BUN Creatinine Est GFR ( Amer) Est GFR (Non-Af Amer) POC Glucose (mg/dL) 233 H 226 H Random Glucose Hemoglobin A1c Calcium Phosphorus Magnesium Total Bilirubin AST ALT Alkaline Phosphatase Troponin I Total Protein Albumin Globulin Albumin/Globulin Ratio Venous Blood Potassium Urine Color Urine Clarity Urine pH Ur Specific [place] Urine Protein Urine Glucose (UA) Urine Ketones Urine Blood Urine Nitrate Urine Bilirubin Urine Urobilinogen Ur Leukocyte Esterase Urine WBC (Auto) Urine RBC (Auto) Ur Squamous Epith Cells Urine Bacteria Urine Opiates Screen Negative Urine Methadone Screen Negative Ur Barbiturates Screen Negative Ur Phencyclidine Scrn Negative Ur Amphetamines Screen Negative U Benzodiazepines Scrn Negative U Oth Cocaine Metabols Negative U Cannabinoids Screen Negative Alcohol, Quantitative B-Hydroxybutyrate 10/05/17 10/05/17 10/05/17 19:33 21:10 22:07 WBC RBC Hgb Hct MCV MCH MCHC RDW Plt Count MPV Neut % (Auto) Lymph % (Auto) [place] % (Auto) Eos % (Auto) Baso % (Auto) Neut # (Auto) Lymph # (Auto) [place] # (Auto) Eos # (Auto) Baso # (Auto) pO2 VBG pH VBG pCO2 VBG HCO3 VBG Total CO2 VBG O2 Sat (Calc) VBG Base Excess VBG Potassium Glucose Lactate FiO2 Crit Value Called To Crit Value Called By Crit Value Read Back Blood Gas Notified Time Sodium Potassium Chloride Carbon Dioxide Anion Gap BUN Creatinine Est GFR ( Amer) Est GFR (Non-Af Amer) POC Glucose (mg/dL) 154 H 199 H 223 H Random Glucose Hemoglobin A1c Calcium Phosphorus Magnesium Total Bilirubin AST ALT Alkaline Phosphatase Troponin I Total Protein Albumin Globulin Albumin/Globulin Ratio Venous Blood Potassium Urine Color Urine Clarity Urine pH Ur Specific [place] Urine Protein Urine Glucose (UA) Urine Ketones Urine Blood Urine Nitrate Urine Bilirubin Urine Urobilinogen Ur Leukocyte Esterase Urine WBC (Auto) Urine RBC (Auto) Ur Squamous Epith Cells Urine Bacteria Urine Opiates Screen Urine Methadone Screen Ur Barbiturates Screen Ur Phencyclidine Scrn Ur Amphetamines Screen U Benzodiazepines Scrn U Oth Cocaine Metabols U Cannabinoids Screen Alcohol, Quantitative B-Hydroxybutyrate 10/05/17 10/05/17 10/06/17 23:43 23:48 00:07 WBC RBC Hgb Hct MCV MCH MCHC RDW Plt Count MPV Neut % (Auto) Lymph % (Auto) [place] % (Auto) Eos % (Auto) Baso % (Auto) Neut # (Auto) Lymph # (Auto) [place] # (Auto) Eos # (Auto) Baso # (Auto) pO2 64 H VBG pH 7.47 H VBG pCO2 36 L VBG HCO3 26.9 VBG Total CO2 27.3 VBG O2 Sat (Calc) 95.8 H VBG Base Excess 2.7 H VBG Potassium 2.9 L Glucose 202 H Lactate 1.4 FiO2 Crit Value Called To Crit Value Called By Crit Value Read Back Blood Gas Notified Time Sodium 123.0 L 124 L Potassium 3.0 L Chloride 87.0 L 86 L D Carbon Dioxide 27 Anion Gap 14 BUN 17 Creatinine 0.8 Est GFR ( Amer) > 60 Est GFR (Non-Af Amer) > 60 POC Glucose (mg/dL) 172 H Random Glucose 190 H Hemoglobin A1c Calcium 9.4 Phosphorus Magnesium Total Bilirubin AST ALT Alkaline Phosphatase Troponin I Total Protein Albumin Globulin Albumin/Globulin Ratio Venous Blood Potassium 2.9 L Urine Color Urine Clarity Urine pH Ur Specific [place] Urine Protein Urine Glucose (UA) Urine Ketones Urine Blood Urine Nitrate Urine Bilirubin Urine Urobilinogen Ur Leukocyte Esterase Urine WBC (Auto) Urine RBC (Auto) Ur Squamous Epith Cells Urine Bacteria Urine Opiates Screen Urine Methadone Screen Ur Barbiturates Screen Ur Phencyclidine Scrn Ur Amphetamines Screen U Benzodiazepines Scrn U Oth Cocaine Metabols U Cannabinoids Screen Alcohol, Quantitative B-Hydroxybutyrate 10/06/17 10/06/17 10/06/17 00:16 01:05 02:36 WBC RBC Hgb Hct MCV MCH MCHC RDW Plt Count MPV Neut % (Auto) Lymph % (Auto) [place] % (Auto) Eos % (Auto) Baso % (Auto) Neut # (Auto) Lymph # (Auto) [place] # (Auto) Eos # (Auto) Baso # (Auto) pO2 VBG pH VBG pCO2 VBG HCO3 VBG Total CO2 VBG O2 Sat (Calc) VBG Base Excess VBG Potassium Glucose Lactate FiO2 Crit Value Called To Crit Value Called By Crit Value Read Back Blood Gas Notified Time Sodium Potassium Chloride Carbon Dioxide Anion Gap BUN Creatinine Est GFR ( Amer) Est GFR (Non-Af Amer) POC Glucose (mg/dL) 161 H 168 H 149 H Random Glucose Hemoglobin A1c Calcium Phosphorus Magnesium Total Bilirubin AST ALT Alkaline Phosphatase Troponin I Total Protein Albumin Globulin Albumin/Globulin Ratio Venous Blood Potassium Urine Color Urine Clarity Urine pH Ur Specific [place] Urine Protein Urine Glucose (UA) Urine Ketones Urine Blood Urine Nitrate Urine Bilirubin Urine Urobilinogen Ur Leukocyte Esterase Urine WBC (Auto) Urine RBC (Auto) Ur Squamous Epith Cells Urine Bacteria Urine Opiates Screen Urine Methadone Screen Ur Barbiturates Screen Ur Phencyclidine Scrn Ur Amphetamines Screen U Benzodiazepines Scrn U Oth Cocaine Metabols U Cannabinoids Screen Alcohol, Quantitative B-Hydroxybutyrate 10/06/17 10/06/17 10/06/17 07:10 07:10 07:10 WBC 3.7 L RBC 3.97 L Hgb 12.2 D Hct 34.6 L MCV 87.3 MCH 30.9 MCHC 35.4 RDW 13.0 Plt Count 162 MPV 9.0 Neut % (Auto) 58.6 Lymph % (Auto) 22.6 [place] % (Auto) 18.0 H Eos % (Auto) 0.3 Baso % (Auto) 0.5 Neut # (Auto) 2.2 Lymph # (Auto) 0.8 L [place] # (Auto) 0.7 Eos # (Auto) 0.0 Baso # (Auto) 0.0 pO2 VBG pH VBG pCO2 VBG HCO3 VBG Total CO2 VBG O2 Sat (Calc) VBG Base Excess VBG Potassium Glucose Lactate FiO2 Crit Value Called To Crit Value Called By Crit Value Read Back Blood Gas Notified Time Sodium 127 L Potassium 3.5 L Chloride 94 L Carbon Dioxide 23 Anion Gap 13 BUN 17 Creatinine 0.7 L Est GFR ( Amer) > 60 Est GFR (Non-Af Amer) > 60 POC Glucose (mg/dL) Random Glucose 170 H Hemoglobin A1c 6.1 Calcium 9.2 Phosphorus < 0.5 L* Magnesium 2.6 H Total Bilirubin 0.8 AST 95 H ALT 100 H Alkaline Phosphatase 89 Troponin I Total Protein 6.4 Albumin 3.6 Globulin 2.8 Albumin/Globulin Ratio 1.3 Venous Blood Potassium Urine Color Urine Clarity Urine pH Ur Specific [place] Urine Protein Urine Glucose (UA) Urine Ketones Urine Blood Urine Nitrate Urine Bilirubin Urine Urobilinogen Ur Leukocyte Esterase Urine WBC (Auto) Urine RBC (Auto) Ur Squamous Epith Cells Urine Bacteria Urine Opiates Screen Urine Methadone Screen Ur Barbiturates Screen Ur Phencyclidine Scrn Ur Amphetamines Screen U Benzodiazepines Scrn U Oth Cocaine Metabols U Cannabinoids Screen Alcohol, Quantitative B-Hydroxybutyrate EKG/Cardiology Studies: Cardiology / EKG Studies 10/05/17 14:56 ELECTROCARDIOGRAM Stat Comment: Mode Of Transportation: BED Reason For Exam: Detox/Psy 10/05/17 17:17 ELECTROCARDIOGRAM Stat Comment: Mode Of Transportation: BED Reason For Exam: Detox/Psy Fingerstick Blood Sugar Results: 154 Review of Systems - Review of Systems All systems: reviewed and no additional remarkable complaints except (HPI) Critical Care Progress Note - Nutrition Nutrition: Nutrition Category Date Time Status Consistent Carbohydrate [DIET] Diets 10/06/17 Breakfast Active Assessment/Plan - Assessment and Plan (Free Text) Assessment: 32 year old male with a past medical history of IDDM and alcohol abuse presenting to the emergency room presenting for detox from alcohol. Found to have DKA ( likely 2/2 non compliance - hasnt been taking his home inslun for the past 2 weeks), anion gap currently closed and off of the insulin ggt. Neuro: - Alert, awake and AAO x 3 - Psych consulted for etoh dependence and detox - Monitor for DTs - Cont Ativan 1mg Q4 - Cont multivit, folic acid, and thiamine - CIWA protocol Pulm: - Maintain SPO2 > 92 % - cont to monitor CV: - hemodynamically stable - Maintain MAP > 65 GI: - HHD as tolerated - GI ppx with protonix Endo: - Insulin ggt d/alisson - Levemir 10units x 1 given - ISS high dose as protocol - Q4H fingers ticks - Endocrinology consulted for recs - Maintain blood sugars with 140-180 - Cont to monitor Renal: - replete electrolytes as needed - I and O ID: - No signs of infection, wbc 3.7 - Cont to monitor GI/DVt ppx - protonix and lovenox sc Case and plan was reviewed and discussed in detail with Dr Chappell. <Malcolm Chappell - Last Filed: 10/06/17 13:26> CCU Objective - Vital Signs / Intake & Output Vital Signs (Last 4 hours): Vital Signs Pulse Resp BP Pulse Ox 10/06/17 11:41 96 H 12 133/91 H 100 10/06/17 10:40 103 H 15 134/85 10/06/17 09:56 96 H 15 131/79 100 10/06/17 09:40 101 H 15 135/80 99 Intake and Output (Last 8hrs): Intake & Output 10/05/17 10/06/17 10/06/17 22:59 06:59 14:59 Intake Total 203 1946 924 Output Total 700 475 Balance -497 1471 924 Weight 163 lb 11.2 oz 163 lb 11.2 oz Intake: IV 11 4 Intake, IV Amount 203 1815 800 Left AC 3 15 Left forearm 0 200 Right AC 200 1600 800 Oral 0 120 120 Output: Urine 700 475 Urine, Voided 0 475 Stool 0 0 Emesis 0 0 Other: Voiding Method Urinal - Medications Active Medications: Active Medications Generic Name Dose Route Start Last Admin Trade Name Freq PRN Reason Stop Dose Admin Enoxaparin Sodium 40 mg 10/06/17 10:00 10/06/17 10:47 Lovenox SC 40 mg DAILY MATTHEW Administration Folic Acid 1 mg 10/06/17 10:15 10/06/17 10:47 Folic Acid PO 1 mg DAILY MATTHEW Administration Potassium Phosphate 15 mmole/ 255 mls @ 42.5 mls/hr 10/06/17 08:33 10/06/17 09:01 Sodium Chloride IVPB 10/06/17 14:32 42.5 mls/hr ONCE ONE Administration Insulin Human Regular 0 unit 10/06/17 12:00 10/06/17 12:23 Novolin R SC 10 u Q4 MATTHEW Administration Protocol Lorazepam 1 mg 10/06/17 10:03 Ativan PO Q4H PRN Symptoms of alcohol withdrawl Multivitamins 1 tab 10/06/17 10:15 10/06/17 10:47 Hexavitamin PO 1 tab DAILY MATTHEW Administration Nicotine 1 patch 10/06/17 10:00 10/06/17 10:47 Nicoderm Cq TD 1 patch DAILY MATTHEW Administration Pantoprazole Sodium 40 mg 10/06/17 10:00 10/06/17 10:47 Protonix Ec Tab PO 40 mg DAILY MATTHEW Administration Thiamine HCl 100 mg 10/06/17 10:15 10/06/17 10:47 Vitamin B1 Tab PO 100 mg DAILY MATTHEW Administration - Patient Studies Lab Studies: Lab Studies 10/06/17 10/06/17 10/06/17 Range/Units 07:10 07:10 07:10 WBC 3.7 L (4.8-10.8) K/uL RBC 3.97 L (4.40-5.90) Mil/uL Hgb 12.2 D (12.0-18.0) g/dL Hct 34.6 L (35.0-51.0) % MCV 87.3 (80.0-94.0) fL MCH 30.9 (27.0-31.0) pg MCHC 35.4 (33.0-37.0) g/dL RDW 13.0 (11.5-14.5) % Plt Count 162 (130-400) K/uL MPV 9.0 (7.2-11.7) fL Neut % (Auto) 58.6 (50.0-75.0) % Lymph % (Auto) 22.6 (20.0-40.0) % [place] % (Auto) 18.0 H (0.0-10.0) % Eos % (Auto) 0.3 (0.0-4.0) % Baso % (Auto) 0.5 (0.0-2.0) % Neut # (Auto) 2.2 (1.8-7.0) K/uL Lymph # (Auto) 0.8 L (1.0-4.3) K/uL [place] # (Auto) 0.7 (0.0-0.8) K/uL Eos # (Auto) 0.0 (0.0-0.7) K/uL Baso # (Auto) 0.0 (0.0-0.2) K/uL pO2 (30-55) mm/Hg VBG pH (7.32-7.43) VBG pCO2 (40-60) mmHg VBG HCO3 mmol/L VBG Total CO2 (22-28) mmol/L VBG O2 Sat (Calc) (40-65) % VBG Base Excess (0.0-2.0) mmol/L VBG Potassium (3.6-5.2) mmol/L Glucose (75-110) mg/dl Lactate (0.7-2.1) mmol/L FiO2 % Crit Value Called To Crit Value Called By Crit Value Read Back Blood Gas Notified Time Sodium 127 L (132-148) mmol/L Potassium 3.5 L (3.6-5.2) mmol/L Chloride 94 L (98-107) mmol/L Carbon Dioxide 23 (22-30) mmol/L Anion Gap 13 (10-20) BUN 17 (9-20) mg/dL Creatinine 0.7 L (0.8-1.5) mg/dL Est GFR ( Amer) > 60 Est GFR (Non-Af Amer) > 60 POC Glucose (mg/dL) (65-110) mg/dL Random Glucose 170 H (75-110) mg/dL Hemoglobin A1c 6.1 (4.2-6.5) % Calcium 9.2 (8.6-10.4) mg/dl Phosphorus < 0.5 L* (2.5-4.5) mg/dL Magnesium 2.6 H (1.6-2.3) mg/dL Total Bilirubin 0.8 (0.2-1.3) mg/dL AST 95 H (17-59) U/L ALT 100 H (21-72) U/L Alkaline Phosphatase 89 (38-126) U/L Troponin I (0.00-0.120) ng/mL Total Protein 6.4 (6.3-8.3) g/dL Albumin 3.6 (3.5-5.0) g/dL Globulin 2.8 (2.2-3.9) gm/dL Albumin/Globulin Ratio 1.3 (1.0-2.1) Venous Blood Potassium (3.6-5.2) mmol/L Urine Color (YELLOW) Urine Clarity (Clear) Urine pH (5.0-8.0) Ur Specific [place] (1.003-1.030) Urine Protein (NEGATIVE) mg/dL Urine Glucose (UA) (Normal) mg/dL Urine Ketones (NEGATIVE) mg/dL Urine Blood (NEGATIVE) Urine Nitrate (NEGATIVE) Urine Bilirubin (NEGATIVE) Urine Urobilinogen (0.2-1.0) mg/dL Ur Leukocyte Esterase (Negative) Brijesh/uL Urine WBC (Auto) (0-5) /hpf Urine RBC (Auto) (0-3) /hpf Ur Squamous Epith Cells (0-5) /hpf Urine Bacteria (<OCC) Urine Opiates Screen (NEGATIVE) Urine Methadone Screen (NEGATIVE) Ur Barbiturates Screen (NEGATIVE) Ur Phencyclidine Scrn (NEGATIVE) Ur Amphetamines Screen (NEGATIVE) U Benzodiazepines Scrn (NEGATIVE) U Oth Cocaine Metabols (NEGATIVE) U Cannabinoids Screen (NEGATIVE) Alcohol, Quantitative (0-10) mg/dl B-Hydroxybutyrate (0.02-0.27) mM 10/06/17 10/06/17 10/06/17 Range/Units 02:36 01:05 00:16 WBC (4.8-10.8) K/uL RBC (4.40-5.90) Mil/uL Hgb (12.0-18.0) g/dL Hct (35.0-51.0) % MCV (80.0-94.0) fL MCH (27.0-31.0) pg MCHC (33.0-37.0) g/dL RDW (11.5-14.5) % Plt Count (130-400) K/uL MPV (7.2-11.7) fL Neut % (Auto) (50.0-75.0) % Lymph % (Auto) (20.0-40.0) % [place] % (Auto) (0.0-10.0) % Eos % (Auto) (0.0-4.0) % Baso % (Auto) (0.0-2.0) % Neut # (Auto) (1.8-7.0) K/uL Lymph # (Auto) (1.0-4.3) K/uL [place] # (Auto) (0.0-0.8) K/uL Eos # (Auto) (0.0-0.7) K/uL Baso # (Auto) (0.0-0.2) K/uL pO2 (30-55) mm/Hg VBG pH (7.32-7.43) VBG pCO2 (40-60) mmHg VBG HCO3 mmol/L VBG Total CO2 (22-28) mmol/L VBG O2 Sat (Calc) (40-65) % VBG Base Excess (0.0-2.0) mmol/L VBG Potassium (3.6-5.2) mmol/L Glucose (75-110) mg/dl Lactate (0.7-2.1) mmol/L FiO2 % Crit Value Called To Crit Value Called By Crit Value Read Back Blood Gas Notified Time Sodium (132-148) mmol/L Potassium (3.6-5.2) mmol/L Chloride (98-107) mmol/L Carbon Dioxide (22-30) mmol/L Anion Gap (10-20) BUN (9-20) mg/dL Creatinine (0.8-1.5) mg/dL Est GFR ( Amer) Est GFR (Non-Af Amer) POC Glucose (mg/dL) 149 H 168 H 161 H (65-110) mg/dL Random Glucose (75-110) mg/dL Hemoglobin A1c (4.2-6.5) % Calcium (8.6-10.4) mg/dl Phosphorus (2.5-4.5) mg/dL Magnesium (1.6-2.3) mg/dL Total Bilirubin (0.2-1.3) mg/dL AST (17-59) U/L ALT (21-72) U/L Alkaline Phosphatase (38-126) U/L Troponin I (0.00-0.120) ng/mL Total Protein (6.3-8.3) g/dL Albumin (3.5-5.0) g/dL Globulin (2.2-3.9) gm/dL Albumin/Globulin Ratio (1.0-2.1) Venous Blood Potassium (3.6-5.2) mmol/L Urine Color (YELLOW) Urine Clarity (Clear) Urine pH (5.0-8.0) Ur Specific [place] (1.003-1.030) Urine Protein (NEGATIVE) mg/dL Urine Glucose (UA) (Normal) mg/dL Urine Ketones (NEGATIVE) mg/dL Urine Blood (NEGATIVE) Urine Nitrate (NEGATIVE) Urine Bilirubin (NEGATIVE) Urine Urobilinogen (0.2-1.0) mg/dL Ur Leukocyte Esterase (Negative) Brijesh/uL Urine WBC (Auto) (0-5) /hpf Urine RBC (Auto) (0-3) /hpf Ur Squamous Epith Cells (0-5) /hpf Urine Bacteria (<OCC) Urine Opiates Screen (NEGATIVE) Urine Methadone Screen (NEGATIVE) Ur Barbiturates Screen (NEGATIVE) Ur Phencyclidine Scrn (NEGATIVE) Ur Amphetamines Screen (NEGATIVE) U Benzodiazepines Scrn (NEGATIVE) U Oth Cocaine Metabols (NEGATIVE) U Cannabinoids Screen (NEGATIVE) Alcohol, Quantitative (0-10) mg/dl B-Hydroxybutyrate (0.02-0.27) mM 10/06/17 10/05/17 10/05/17 Range/Units 00:07 23:48 23:43 WBC (4.8-10.8) K/uL RBC (4.40-5.90) Mil/uL Hgb (12.0-18.0) g/dL Hct (35.0-51.0) % MCV (80.0-94.0) fL MCH (27.0-31.0) pg MCHC (33.0-37.0) g/dL RDW (11.5-14.5) % Plt Count (130-400) K/uL MPV (7.2-11.7) fL Neut % (Auto) (50.0-75.0) % Lymph % (Auto) (20.0-40.0) % [place] % (Auto) (0.0-10.0) % Eos % (Auto) (0.0-4.0) % Baso % (Auto) (0.0-2.0) % Neut # (Auto) (1.8-7.0) K/uL Lymph # (Auto) (1.0-4.3) K/uL [place] # (Auto) (0.0-0.8) K/uL Eos # (Auto) (0.0-0.7) K/uL Baso # (Auto) (0.0-0.2) K/uL pO2 64 H (30-55) mm/Hg VBG pH 7.47 H (7.32-7.43) VBG pCO2 36 L (40-60) mmHg VBG HCO3 26.9 mmol/L VBG Total CO2 27.3 (22-28) mmol/L VBG O2 Sat (Calc) 95.8 H (40-65) % VBG Base Excess 2.7 H (0.0-2.0) mmol/L VBG Potassium 2.9 L (3.6-5.2) mmol/L Glucose 202 H (75-110) mg/dl Lactate 1.4 (0.7-2.1) mmol/L FiO2 % Crit Value Called To Crit Value Called By Crit Value Read Back Blood Gas Notified Time Sodium 124 L 123.0 L (132-148) mmol/L Potassium 3.0 L (3.6-5.2) mmol/L Chloride 86 L D 87.0 L (98-107) mmol/L Carbon Dioxide 27 (22-30) mmol/L Anion Gap 14 (10-20) BUN 17 (9-20) mg/dL Creatinine 0.8 (0.8-1.5) mg/dL Est GFR ( Amer) > 60 Est GFR (Non-Af Amer) > 60 POC Glucose (mg/dL) 172 H (65-110) mg/dL Random Glucose 190 H (75-110) mg/dL Hemoglobin A1c (4.2-6.5) % Calcium 9.4 (8.6-10.4) mg/dl Phosphorus (2.5-4.5) mg/dL Magnesium (1.6-2.3) mg/dL Total Bilirubin (0.2-1.3) mg/dL AST (17-59) U/L ALT (21-72) U/L Alkaline Phosphatase (38-126) U/L Troponin I (0.00-0.120) ng/mL Total Protein (6.3-8.3) g/dL Albumin (3.5-5.0) g/dL Globulin (2.2-3.9) gm/dL Albumin/Globulin Ratio (1.0-2.1) Venous Blood Potassium 2.9 L (3.6-5.2) mmol/L Urine Color (YELLOW) Urine Clarity (Clear) Urine pH (5.0-8.0) Ur Specific [place] (1.003-1.030) Urine Protein (NEGATIVE) mg/dL Urine Glucose (UA) (Normal) mg/dL Urine Ketones (NEGATIVE) mg/dL Urine Blood (NEGATIVE) Urine Nitrate (NEGATIVE) Urine Bilirubin (NEGATIVE) Urine Urobilinogen (0.2-1.0) mg/dL Ur Leukocyte Esterase (Negative) Brijesh/uL Urine WBC (Auto) (0-5) /hpf Urine RBC (Auto) (0-3) /hpf Ur Squamous Epith Cells (0-5) /hpf Urine Bacteria (<OCC) Urine Opiates Screen (NEGATIVE) Urine Methadone Screen (NEGATIVE) Ur Barbiturates Screen (NEGATIVE) Ur Phencyclidine Scrn (NEGATIVE) Ur Amphetamines Screen (NEGATIVE) U Benzodiazepines Scrn (NEGATIVE) U Oth Cocaine Metabols (NEGATIVE) U Cannabinoids Screen (NEGATIVE) Alcohol, Quantitative (0-10) mg/dl B-Hydroxybutyrate (0.02-0.27) mM 10/05/17 10/05/17 10/05/17 Range/Units 22:07 21:10 19:33 WBC (4.8-10.8) K/uL RBC (4.40-5.90) Mil/uL Hgb (12.0-18.0) g/dL Hct (35.0-51.0) % MCV (80.0-94.0) fL MCH (27.0-31.0) pg MCHC (33.0-37.0) g/dL RDW (11.5-14.5) % Plt Count (130-400) K/uL MPV (7.2-11.7) fL Neut % (Auto) (50.0-75.0) % Lymph % (Auto) (20.0-40.0) % [place] % (Auto) (0.0-10.0) % Eos % (Auto) (0.0-4.0) % Baso % (Auto) (0.0-2.0) % Neut # (Auto) (1.8-7.0) K/uL Lymph # (Auto) (1.0-4.3) K/uL [place] # (Auto) (0.0-0.8) K/uL Eos # (Auto) (0.0-0.7) K/uL Baso # (Auto) (0.0-0.2) K/uL pO2 (30-55) mm/Hg VBG pH (7.32-7.43) VBG pCO2 (40-60) mmHg VBG HCO3 mmol/L VBG Total CO2 (22-28) mmol/L VBG O2 Sat (Calc) (40-65) % VBG Base Excess (0.0-2.0) mmol/L VBG Potassium (3.6-5.2) mmol/L Glucose (75-110) mg/dl Lactate (0.7-2.1) mmol/L FiO2 % Crit Value Called To Crit Value Called By Crit Value Read Back Blood Gas Notified Time Sodium (132-148) mmol/L Potassium (3.6-5.2) mmol/L Chloride (98-107) mmol/L Carbon Dioxide (22-30) mmol/L Anion Gap (10-20) BUN (9-20) mg/dL Creatinine (0.8-1.5) mg/dL Est GFR ( Amer) Est GFR (Non-Af Amer) POC Glucose (mg/dL) 223 H 199 H 154 H (65-110) mg/dL Random Glucose (75-110) mg/dL Hemoglobin A1c (4.2-6.5) % Calcium (8.6-10.4) mg/dl Phosphorus (2.5-4.5) mg/dL Magnesium (1.6-2.3) mg/dL Total Bilirubin (0.2-1.3) mg/dL AST (17-59) U/L ALT (21-72) U/L Alkaline Phosphatase (38-126) U/L Troponin I (0.00-0.120) ng/mL Total Protein (6.3-8.3) g/dL Albumin (3.5-5.0) g/dL Globulin (2.2-3.9) gm/dL Albumin/Globulin Ratio (1.0-2.1) Venous Blood Potassium (3.6-5.2) mmol/L Urine Color (YELLOW) Urine Clarity (Clear) Urine pH (5.0-8.0) Ur Specific [place] (1.003-1.030) Urine Protein (NEGATIVE) mg/dL Urine Glucose (UA) (Normal) mg/dL Urine Ketones (NEGATIVE) mg/dL Urine Blood (NEGATIVE) Urine Nitrate (NEGATIVE) Urine Bilirubin (NEGATIVE) Urine Urobilinogen (0.2-1.0) mg/dL Ur Leukocyte Esterase (Negative) Brijesh/uL Urine WBC (Auto) (0-5) /hpf Urine RBC (Auto) (0-3) /hpf Ur Squamous Epith Cells (0-5) /hpf Urine Bacteria (<OCC) Urine Opiates Screen (NEGATIVE) Urine Methadone Screen (NEGATIVE) Ur Barbiturates Screen (NEGATIVE) Ur Phencyclidine Scrn (NEGATIVE) Ur Amphetamines Screen (NEGATIVE) U Benzodiazepines Scrn (NEGATIVE) U Oth Cocaine Metabols (NEGATIVE) U Cannabinoids Screen (NEGATIVE) Alcohol, Quantitative (0-10) mg/dl B-Hydroxybutyrate (0.02-0.27) mM 10/05/17 10/05/17 10/05/17 Range/Units 18:51 18:36 18:24 WBC (4.8-10.8) K/uL RBC (4.40-5.90) Mil/uL Hgb (12.0-18.0) g/dL Hct (35.0-51.0) % MCV (80.0-94.0) fL MCH (27.0-31.0) pg MCHC (33.0-37.0) g/dL RDW (11.5-14.5) % Plt Count (130-400) K/uL MPV (7.2-11.7) fL Neut % (Auto) (50.0-75.0) % Lymph % (Auto) (20.0-40.0) % [place] % (Auto) (0.0-10.0) % Eos % (Auto) (0.0-4.0) % Baso % (Auto) (0.0-2.0) % Neut # (Auto) (1.8-7.0) K/uL Lymph # (Auto) (1.0-4.3) K/uL [place] # (Auto) (0.0-0.8) K/uL Eos # (Auto) (0.0-0.7) K/uL Baso # (Auto) (0.0-0.2) K/uL pO2 (30-55) mm/Hg VBG pH (7.32-7.43) VBG pCO2 (40-60) mmHg VBG HCO3 mmol/L VBG Total CO2 (22-28) mmol/L VBG O2 Sat (Calc) (40-65) % VBG Base Excess (0.0-2.0) mmol/L VBG Potassium (3.6-5.2) mmol/L Glucose (75-110) mg/dl Lactate (0.7-2.1) mmol/L FiO2 % Crit Value Called To Crit Value Called By Crit Value Read Back Blood Gas Notified Time Sodium (132-148) mmol/L Potassium (3.6-5.2) mmol/L Chloride (98-107) mmol/L Carbon Dioxide (22-30) mmol/L Anion Gap (10-20) BUN (9-20) mg/dL Creatinine (0.8-1.5) mg/dL Est GFR ( Amer) Est GFR (Non-Af Amer) POC Glucose (mg/dL) 226 H 233 H (65-110) mg/dL Random Glucose (75-110) mg/dL Hemoglobin A1c (4.2-6.5) % Calcium (8.6-10.4) mg/dl Phosphorus (2.5-4.5) mg/dL Magnesium (1.6-2.3) mg/dL Total Bilirubin (0.2-1.3) mg/dL AST (17-59) U/L ALT (21-72) U/L Alkaline Phosphatase (38-126) U/L Troponin I (0.00-0.120) ng/mL Total Protein (6.3-8.3) g/dL Albumin (3.5-5.0) g/dL Globulin (2.2-3.9) gm/dL Albumin/Globulin Ratio (1.0-2.1) Venous Blood Potassium (3.6-5.2) mmol/L Urine Color (YELLOW) Urine Clarity (Clear) Urine pH (5.0-8.0) Ur Specific [place] (1.003-1.030) Urine Protein (NEGATIVE) mg/dL Urine Glucose (UA) (Normal) mg/dL Urine Ketones (NEGATIVE) mg/dL Urine Blood (NEGATIVE) Urine Nitrate (NEGATIVE) Urine Bilirubin (NEGATIVE) Urine Urobilinogen (0.2-1.0) mg/dL Ur Leukocyte Esterase (Negative) Brijesh/uL Urine WBC (Auto) (0-5) /hpf Urine RBC (Auto) (0-3) /hpf Ur Squamous Epith Cells (0-5) /hpf Urine Bacteria (<OCC) Urine Opiates Screen Negative (NEGATIVE) Urine Methadone Screen Negative (NEGATIVE) Ur Barbiturates Screen Negative (NEGATIVE) Ur Phencyclidine Scrn Negative (NEGATIVE) Ur Amphetamines Screen Negative (NEGATIVE) U Benzodiazepines Scrn Negative (NEGATIVE) U Oth Cocaine Metabols Negative (NEGATIVE) U Cannabinoids Screen Negative (NEGATIVE) Alcohol, Quantitative (0-10) mg/dl B-Hydroxybutyrate (0.02-0.27) mM 10/05/17 10/05/17 10/05/17 Range/Units 18:24 18:11 17:22 WBC (4.8-10.8) K/uL RBC (4.40-5.90) Mil/uL Hgb (12.0-18.0) g/dL Hct (35.0-51.0) % MCV (80.0-94.0) fL MCH (27.0-31.0) pg MCHC (33.0-37.0) g/dL RDW (11.5-14.5) % Plt Count (130-400) K/uL MPV (7.2-11.7) fL Neut % (Auto) (50.0-75.0) % Lymph % (Auto) (20.0-40.0) % [place] % (Auto) (0.0-10.0) % Eos % (Auto) (0.0-4.0) % Baso % (Auto) (0.0-2.0) % Neut # (Auto) (1.8-7.0) K/uL Lymph # (Auto) (1.0-4.3) K/uL [place] # (Auto) (0.0-0.8) K/uL Eos # (Auto) (0.0-0.7) K/uL Baso # (Auto) (0.0-0.2) K/uL pO2 (30-55) mm/Hg VBG pH (7.32-7.43) VBG pCO2 (40-60) mmHg VBG HCO3 mmol/L VBG Total CO2 (22-28) mmol/L VBG O2 Sat (Calc) (40-65) % VBG Base Excess (0.0-2.0) mmol/L VBG Potassium (3.6-5.2) mmol/L Glucose (75-110) mg/dl Lactate (0.7-2.1) mmol/L FiO2 % Crit Value Called To Crit Value Called By Crit Value Read Back Blood Gas Notified Time Sodium (132-148) mmol/L Potassium (3.6-5.2) mmol/L Chloride (98-107) mmol/L Carbon Dioxide (22-30) mmol/L Anion Gap (10-20) BUN (9-20) mg/dL Creatinine (0.8-1.5) mg/dL Est GFR ( Amer) Est GFR (Non-Af Amer) POC Glucose (mg/dL) (65-110) mg/dL Random Glucose (75-110) mg/dL Hemoglobin A1c (4.2-6.5) % Calcium (8.6-10.4) mg/dl Phosphorus (2.5-4.5) mg/dL Magnesium (1.6-2.3) mg/dL Total Bilirubin (0.2-1.3) mg/dL AST (17-59) U/L ALT (21-72) U/L Alkaline Phosphatase (38-126) U/L Troponin I < 0.0120 (0.00-0.120) ng/mL Total Protein (6.3-8.3) g/dL Albumin (3.5-5.0) g/dL Globulin (2.2-3.9) gm/dL Albumin/Globulin Ratio (1.0-2.1) Venous Blood Potassium (3.6-5.2) mmol/L Urine Color Yellow (YELLOW) Urine Clarity Clear (Clear) Urine pH 6.0 (5.0-8.0) Ur Specific [place] 1.013 (1.003-1.030) Urine Protein 2+ H (NEGATIVE) mg/dL Urine Glucose (UA) 3+ H (Normal) mg/dL Urine Ketones 2+ H (NEGATIVE) mg/dL Urine Blood 1+ H (NEGATIVE) Urine Nitrate Negative (NEGATIVE) Urine Bilirubin Negative (NEGATIVE) Urine Urobilinogen Normal (0.2-1.0) mg/dL Ur Leukocyte Esterase Neg (Negative) Brijesh/uL Urine WBC (Auto) < 1 (0-5) /hpf Urine RBC (Auto) 2 (0-3) /hpf Ur Squamous Epith Cells < 1 (0-5) /hpf Urine Bacteria Rare (<OCC) Urine Opiates Screen (NEGATIVE) Urine Methadone Screen (NEGATIVE) Ur Barbiturates Screen (NEGATIVE) Ur Phencyclidine Scrn (NEGATIVE) Ur Amphetamines Screen (NEGATIVE) U Benzodiazepines Scrn (NEGATIVE) U Oth Cocaine Metabols (NEGATIVE) U Cannabinoids Screen (NEGATIVE) Alcohol, Quantitative (0-10) mg/dl B-Hydroxybutyrate 6.69 H (0.02-0.27) mM 10/05/17 10/05/17 10/05/17 Range/Units 16:50 16:35 16:05 WBC (4.8-10.8) K/uL RBC (4.40-5.90) Mil/uL Hgb (12.0-18.0) g/dL Hct (35.0-51.0) % MCV (80.0-94.0) fL MCH (27.0-31.0) pg MCHC (33.0-37.0) g/dL RDW (11.5-14.5) % Plt Count (130-400) K/uL MPV (7.2-11.7) fL Neut % (Auto) (50.0-75.0) % Lymph % (Auto) (20.0-40.0) % [place] % (Auto) (0.0-10.0) % Eos % (Auto) (0.0-4.0) % Baso % (Auto) (0.0-2.0) % Neut # (Auto) (1.8-7.0) K/uL Lymph # (Auto) (1.0-4.3) K/uL [place] # (Auto) (0.0-0.8) K/uL Eos # (Auto) (0.0-0.7) K/uL Baso # (Auto) (0.0-0.2) K/uL pO2 22 L (30-55) mm/Hg VBG pH 7.30 L (7.32-7.43) VBG pCO2 34 L (40-60) mmHg VBG HCO3 16.2 mmol/L VBG Total CO2 17.7 L (22-28) mmol/L VBG O2 Sat (Calc) 40.5 (40-65) % VBG Base Excess -8.8 L (0.0-2.0) mmol/L VBG Potassium 2.2 L* (3.6-5.2) mmol/L Glucose 425 H* (75-110) mg/dl Lactate 2.4 H (0.7-2.1) mmol/L FiO2 21.0 % Crit Value Called To Dr steel Crit Value Called By [facility] Crit Value Read Back Y Blood Gas Notified Time 1643 Sodium 113 L* 120.0 L* (132-148) mmol/L Potassium 3.0 L (3.6-5.2) mmol/L Chloride 68 L 80.0 L (98-107) mmol/L Carbon Dioxide 16 L (22-30) mmol/L Anion Gap 32 H (10-20) BUN 22 H (9-20) mg/dL Creatinine 1.0 (0.8-1.5) mg/dL Est GFR ( Amer) > 60 Est GFR (Non-Af Amer) > 60 POC Glucose (mg/dL) > 500 H* (65-110) mg/dL Random Glucose 471 H* (75-110) mg/dL Hemoglobin A1c (4.2-6.5) % Calcium 9.3 (8.6-10.4) mg/dl Phosphorus (2.5-4.5) mg/dL Magnesium (1.6-2.3) mg/dL Total Bilirubin 1.2 (0.2-1.3) mg/dL AST 106 H (17-59) U/L ALT 122 H (21-72) U/L Alkaline Phosphatase 122 (38-126) U/L Troponin I (0.00-0.120) ng/mL Total Protein 7.9 (6.3-8.3) g/dL Albumin 4.8 (3.5-5.0) g/dL Globulin 3.1 (2.2-3.9) gm/dL Albumin/Globulin Ratio 1.5 (1.0-2.1) Venous Blood Potassium 2.2 L* (3.6-5.2) mmol/L Urine Color (YELLOW) Urine Clarity (Clear) Urine pH (5.0-8.0) Ur Specific [place] (1.003-1.030) Urine Protein (NEGATIVE) mg/dL Urine Glucose (UA) (Normal) mg/dL Urine Ketones (NEGATIVE) mg/dL Urine Blood (NEGATIVE) Urine Nitrate (NEGATIVE) Urine Bilirubin (NEGATIVE) Urine Urobilinogen (0.2-1.0) mg/dL Ur Leukocyte Esterase (Negative) Brijesh/uL Urine WBC (Auto) (0-5) /hpf Urine RBC (Auto) (0-3) /hpf Ur Squamous Epith Cells (0-5) /hpf Urine Bacteria (<OCC) Urine Opiates Screen (NEGATIVE) Urine Methadone Screen (NEGATIVE) Ur Barbiturates Screen (NEGATIVE) Ur Phencyclidine Scrn (NEGATIVE) Ur Amphetamines Screen (NEGATIVE) U Benzodiazepines Scrn (NEGATIVE) U Oth Cocaine Metabols (NEGATIVE) U Cannabinoids Screen (NEGATIVE) Alcohol, Quantitative (0-10) mg/dl B-Hydroxybutyrate (0.02-0.27) mM 10/05/17 10/05/17 10/05/17 Range/Units 16:02 15:51 15:51 WBC 4.7 L (4.8-10.8) K/uL RBC 4.85 (4.40-5.90) Mil/uL Hgb 15.0 (12.0-18.0) g/dL Hct 42.1 (35.0-51.0) % MCV 86.9 D (80.0-94.0) fL MCH 30.9 (27.0-31.0) pg MCHC 35.5 (33.0-37.0) g/dL RDW 12.9 (11.5-14.5) % Plt Count 172 (130-400) K/uL MPV 9.0 (7.2-11.7) fL Neut % (Auto) 69.5 (50.0-75.0) % Lymph % (Auto) 12.8 L (20.0-40.0) % [place] % (Auto) 17.3 H (0.0-10.0) % Eos % (Auto) 0.1 (0.0-4.0) % Baso % (Auto) 0.3 (0.0-2.0) % Neut # (Auto) 3.3 (1.8-7.0) K/uL Lymph # (Auto) 0.6 L (1.0-4.3) K/uL [place] # (Auto) 0.8 (0.0-0.8) K/uL Eos # (Auto) 0.0 (0.0-0.7) K/uL Baso # (Auto) 0.0 (0.0-0.2) K/uL pO2 (30-55) mm/Hg VBG pH (7.32-7.43) VBG pCO2 (40-60) mmHg VBG HCO3 mmol/L VBG Total CO2 (22-28) mmol/L VBG O2 Sat (Calc) (40-65) % VBG Base Excess (0.0-2.0) mmol/L VBG Potassium (3.6-5.2) mmol/L Glucose (75-110) mg/dl Lactate (0.7-2.1) mmol/L FiO2 % Crit Value Called To Crit Value Called By Crit Value Read Back Blood Gas Notified Time Sodium 112 L* (132-148) mmol/L Potassium 3.1 L (3.6-5.2) mmol/L Chloride 65 L D (98-107) mmol/L Carbon Dioxide 16 L (22-30) mmol/L Anion Gap 34 H (10-20) BUN 22 H (9-20) mg/dL Creatinine 1.1 (0.8-1.5) mg/dL Est GFR ( Amer) > 60 Est GFR (Non-Af Amer) > 60 POC Glucose (mg/dL) > 500 H* (65-110) mg/dL Random Glucose 531 H* D (75-110) mg/dL Hemoglobin A1c (4.2-6.5) % Calcium 9.9 (8.6-10.4) mg/dl Phosphorus (2.5-4.5) mg/dL Magnesium (1.6-2.3) mg/dL Total Bilirubin 1.3 (0.2-1.3) mg/dL AST 111 H D (17-59) U/L ALT 137 H D (21-72) U/L Alkaline Phosphatase 138 H (38-126) U/L Troponin I (0.00-0.120) ng/mL Total Protein 8.6 H (6.3-8.3) g/dL Albumin 5.2 H D (3.5-5.0) g/dL Globulin 3.4 (2.2-3.9) gm/dL Albumin/Globulin Ratio 1.5 (1.0-2.1) Venous Blood Potassium (3.6-5.2) mmol/L Urine Color (YELLOW) Urine Clarity (Clear) Urine pH (5.0-8.0) Ur Specific [place] (1.003-1.030) Urine Protein (NEGATIVE) mg/dL Urine Glucose (UA) (Normal) mg/dL Urine Ketones (NEGATIVE) mg/dL Urine Blood (NEGATIVE) Urine Nitrate (NEGATIVE) Urine Bilirubin (NEGATIVE) Urine Urobilinogen (0.2-1.0) mg/dL Ur Leukocyte Esterase (Negative) Brijesh/uL Urine WBC (Auto) (0-5) /hpf Urine RBC (Auto) (0-3) /hpf Ur Squamous Epith Cells (0-5) /hpf Urine Bacteria (<OCC) Urine Opiates Screen (NEGATIVE) Urine Methadone Screen (NEGATIVE) Ur Barbiturates Screen (NEGATIVE) Ur Phencyclidine Scrn (NEGATIVE) Ur Amphetamines Screen (NEGATIVE) U Benzodiazepines Scrn (NEGATIVE) U Oth Cocaine Metabols (NEGATIVE) U Cannabinoids Screen (NEGATIVE) Alcohol, Quantitative < 10 (0-10) mg/dl B-Hydroxybutyrate (0.02-0.27) mM Laboratory Results - last 24 hr 10/05/17 10/05/17 10/05/17 15:51 15:51 16:02 WBC 4.7 L RBC 4.85 Hgb 15.0 Hct 42.1 MCV 86.9 D MCH 30.9 MCHC 35.5 RDW 12.9 Plt Count 172 MPV 9.0 Neut % (Auto) 69.5 Lymph % (Auto) 12.8 L [place] % (Auto) 17.3 H Eos % (Auto) 0.1 Baso % (Auto) 0.3 Neut # (Auto) 3.3 Lymph # (Auto) 0.6 L [place] # (Auto) 0.8 Eos # (Auto) 0.0 Baso # (Auto) 0.0 pO2 VBG pH VBG pCO2 VBG HCO3 VBG Total CO2 VBG O2 Sat (Calc) VBG Base Excess VBG Potassium Glucose Lactate FiO2 Crit Value Called To Crit Value Called By Crit Value Read Back Blood Gas Notified Time Sodium 112 L* Potassium 3.1 L Chloride 65 L D Carbon Dioxide 16 L Anion Gap 34 H BUN 22 H Creatinine 1.1 Est GFR ( Amer) > 60 Est GFR (Non-Af Amer) > 60 POC Glucose (mg/dL) > 500 H* Random Glucose 531 H* D Hemoglobin A1c Calcium 9.9 Phosphorus Magnesium Total Bilirubin 1.3 AST 111 H D ALT 137 H D Alkaline Phosphatase 138 H Troponin I Total Protein 8.6 H Albumin 5.2 H D Globulin 3.4 Albumin/Globulin Ratio 1.5 Venous Blood Potassium Urine Color Urine Clarity Urine pH Ur Specific [place] Urine Protein Urine Glucose (UA) Urine Ketones Urine Blood Urine Nitrate Urine Bilirubin Urine Urobilinogen Ur Leukocyte Esterase Urine WBC (Auto) Urine RBC (Auto) Ur Squamous Epith Cells Urine Bacteria Urine Opiates Screen Urine Methadone Screen Ur Barbiturates Screen Ur Phencyclidine Scrn Ur Amphetamines Screen U Benzodiazepines Scrn U Oth Cocaine Metabols U Cannabinoids Screen Alcohol, Quantitative < 10 B-Hydroxybutyrate 10/05/17 10/05/17 10/05/17 16:05 16:35 16:50 WBC RBC Hgb Hct MCV MCH MCHC RDW Plt Count MPV Neut % (Auto) Lymph % (Auto) [place] % (Auto) Eos % (Auto) Baso % (Auto) Neut # (Auto) Lymph # (Auto) [place] # (Auto) Eos # (Auto) Baso # (Auto) pO2 22 L VBG pH 7.30 L VBG pCO2 34 L VBG HCO3 16.2 VBG Total CO2 17.7 L VBG O2 Sat (Calc) 40.5 VBG Base Excess -8.8 L VBG Potassium 2.2 L* Glucose 425 H* Lactate 2.4 H FiO2 21.0 Crit Value Called To Dr steel Crit Value Called By [facility] Crit Value Read Back Y Blood Gas Notified Time 1643 Sodium 120.0 L* 113 L* Potassium 3.0 L Chloride 80.0 L 68 L Carbon Dioxide 16 L Anion Gap 32 H BUN 22 H Creatinine 1.0 Est GFR ( Amer) > 60 Est GFR (Non-Af Amer) > 60 POC Glucose (mg/dL) > 500 H* Random Glucose 471 H* Hemoglobin A1c Calcium 9.3 Phosphorus Magnesium Total Bilirubin 1.2 AST 106 H ALT 122 H Alkaline Phosphatase 122 Troponin I Total Protein 7.9 Albumin 4.8 Globulin 3.1 Albumin/Globulin Ratio 1.5 Venous Blood Potassium 2.2 L* Urine Color Urine Clarity Urine pH Ur Specific [place] Urine Protein Urine Glucose (UA) Urine Ketones Urine Blood Urine Nitrate Urine Bilirubin Urine Urobilinogen Ur Leukocyte Esterase Urine WBC (Auto) Urine RBC (Auto) Ur Squamous Epith Cells Urine Bacteria Urine Opiates Screen Urine Methadone Screen Ur Barbiturates Screen Ur Phencyclidine Scrn Ur Amphetamines Screen U Benzodiazepines Scrn U Oth Cocaine Metabols U Cannabinoids Screen Alcohol, Quantitative B-Hydroxybutyrate 10/05/17 10/05/17 10/05/17 17:22 18:11 18:24 WBC RBC Hgb Hct MCV MCH MCHC RDW Plt Count MPV Neut % (Auto) Lymph % (Auto) [place] % (Auto) Eos % (Auto) Baso % (Auto) Neut # (Auto) Lymph # (Auto) [place] # (Auto) Eos # (Auto) Baso # (Auto) pO2 VBG pH VBG pCO2 VBG HCO3 VBG Total CO2 VBG O2 Sat (Calc) VBG Base Excess VBG Potassium Glucose Lactate FiO2 Crit Value Called To Crit Value Called By Crit Value Read Back Blood Gas Notified Time Sodium Potassium Chloride Carbon Dioxide Anion Gap BUN Creatinine Est GFR ( Amer) Est GFR (Non-Af Amer) POC Glucose (mg/dL) Random Glucose Hemoglobin A1c Calcium Phosphorus Magnesium Total Bilirubin AST ALT Alkaline Phosphatase Troponin I < 0.0120 Total Protein Albumin Globulin Albumin/Globulin Ratio Venous Blood Potassium Urine Color Yellow Urine Clarity Clear Urine pH 6.0 Ur Specific [place] 1.013 Urine Protein 2+ H Urine Glucose (UA) 3+ H Urine Ketones 2+ H Urine Blood 1+ H Urine Nitrate Negative Urine Bilirubin Negative Urine Urobilinogen Normal Ur Leukocyte Esterase Neg Urine WBC (Auto) < 1 Urine RBC (Auto) 2 Ur Squamous Epith Cells < 1 Urine Bacteria Rare Urine Opiates Screen Urine Methadone Screen Ur Barbiturates Screen Ur Phencyclidine Scrn Ur Amphetamines Screen U Benzodiazepines Scrn U Oth Cocaine Metabols U Cannabinoids Screen Alcohol, Quantitative B-Hydroxybutyrate 6.69 H 10/05/17 10/05/17 10/05/17 18:24 18:36 18:51 WBC RBC Hgb Hct MCV MCH MCHC RDW Plt Count MPV Neut % (Auto) Lymph % (Auto) [place] % (Auto) Eos % (Auto) Baso % (Auto) Neut # (Auto) Lymph # (Auto) [place] # (Auto) Eos # (Auto) Baso # (Auto) pO2 VBG pH VBG pCO2 VBG HCO3 VBG Total CO2 VBG O2 Sat (Calc) VBG Base Excess VBG Potassium Glucose Lactate FiO2 Crit Value Called To Crit Value Called By Crit Value Read Back Blood Gas Notified Time Sodium Potassium Chloride Carbon Dioxide Anion Gap BUN Creatinine Est GFR ( Amer) Est GFR (Non-Af Amer) POC Glucose (mg/dL) 233 H 226 H Random Glucose Hemoglobin A1c Calcium Phosphorus Magnesium Total Bilirubin AST ALT Alkaline Phosphatase Troponin I Total Protein Albumin Globulin Albumin/Globulin Ratio Venous Blood Potassium Urine Color Urine Clarity Urine pH Ur Specific [place] Urine Protein Urine Glucose (UA) Urine Ketones Urine Blood Urine Nitrate Urine Bilirubin Urine Urobilinogen Ur Leukocyte Esterase Urine WBC (Auto) Urine RBC (Auto) Ur Squamous Epith Cells Urine Bacteria Urine Opiates Screen Negative Urine Methadone Screen Negative Ur Barbiturates Screen Negative Ur Phencyclidine Scrn Negative Ur Amphetamines Screen Negative U Benzodiazepines Scrn Negative U Oth Cocaine Metabols Negative U Cannabinoids Screen Negative Alcohol, Quantitative B-Hydroxybutyrate 10/05/17 10/05/17 10/05/17 19:33 21:10 22:07 WBC RBC Hgb Hct MCV MCH MCHC RDW Plt Count MPV Neut % (Auto) Lymph % (Auto) [place] % (Auto) Eos % (Auto) Baso % (Auto) Neut # (Auto) Lymph # (Auto) [place] # (Auto) Eos # (Auto) Baso # (Auto) pO2 VBG pH VBG pCO2 VBG HCO3 VBG Total CO2 VBG O2 Sat (Calc) VBG Base Excess VBG Potassium Glucose Lactate FiO2 Crit Value Called To Crit Value Called By Crit Value Read Back Blood Gas Notified Time Sodium Potassium Chloride Carbon Dioxide Anion Gap BUN Creatinine Est GFR ( Amer) Est GFR (Non-Af Amer) POC Glucose (mg/dL) 154 H 199 H 223 H Random Glucose Hemoglobin A1c Calcium Phosphorus Magnesium Total Bilirubin AST ALT Alkaline Phosphatase Troponin I Total Protein Albumin Globulin Albumin/Globulin Ratio Venous Blood Potassium Urine Color Urine Clarity Urine pH Ur Specific [place] Urine Protein Urine Glucose (UA) Urine Ketones Urine Blood Urine Nitrate Urine Bilirubin Urine Urobilinogen Ur Leukocyte Esterase Urine WBC (Auto) Urine RBC (Auto) Ur Squamous Epith Cells Urine Bacteria Urine Opiates Screen Urine Methadone Screen Ur Barbiturates Screen Ur Phencyclidine Scrn Ur Amphetamines Screen U Benzodiazepines Scrn U Oth Cocaine Metabols U Cannabinoids Screen Alcohol, Quantitative B-Hydroxybutyrate 10/05/17 10/05/17 10/06/17 23:43 23:48 00:07 WBC RBC Hgb Hct MCV MCH MCHC RDW Plt Count MPV Neut % (Auto) Lymph % (Auto) [place] % (Auto) Eos % (Auto) Baso % (Auto) Neut # (Auto) Lymph # (Auto) [place] # (Auto) Eos # (Auto) Baso # (Auto) pO2 64 H VBG pH 7.47 H VBG pCO2 36 L VBG HCO3 26.9 VBG Total CO2 27.3 VBG O2 Sat (Calc) 95.8 H VBG Base Excess 2.7 H VBG Potassium 2.9 L Glucose 202 H Lactate 1.4 FiO2 Crit Value Called To Crit Value Called By Crit Value Read Back Blood Gas Notified Time Sodium 123.0 L 124 L Potassium 3.0 L Chloride 87.0 L 86 L D Carbon Dioxide 27 Anion Gap 14 BUN 17 Creatinine 0.8 Est GFR ( Amer) > 60 Est GFR (Non-Af Amer) > 60 POC Glucose (mg/dL) 172 H Random Glucose 190 H Hemoglobin A1c Calcium 9.4 Phosphorus Magnesium Total Bilirubin AST ALT Alkaline Phosphatase Troponin I Total Protein Albumin Globulin Albumin/Globulin Ratio Venous Blood Potassium 2.9 L Urine Color Urine Clarity Urine pH Ur Specific [place] Urine Protein Urine Glucose (UA) Urine Ketones Urine Blood Urine Nitrate Urine Bilirubin Urine Urobilinogen Ur Leukocyte Esterase Urine WBC (Auto) Urine RBC (Auto) Ur Squamous Epith Cells Urine Bacteria Urine Opiates Screen Urine Methadone Screen Ur Barbiturates Screen Ur Phencyclidine Scrn Ur Amphetamines Screen U Benzodiazepines Scrn U Oth Cocaine Metabols U Cannabinoids Screen Alcohol, Quantitative B-Hydroxybutyrate 10/06/17 10/06/17 10/06/17 00:16 01:05 02:36 WBC RBC Hgb Hct MCV MCH MCHC RDW Plt Count MPV Neut % (Auto) Lymph % (Auto) [place] % (Auto) Eos % (Auto) Baso % (Auto) Neut # (Auto) Lymph # (Auto) [place] # (Auto) Eos # (Auto) Baso # (Auto) pO2 VBG pH VBG pCO2 VBG HCO3 VBG Total CO2 VBG O2 Sat (Calc) VBG Base Excess VBG Potassium Glucose Lactate FiO2 Crit Value Called To Crit Value Called By Crit Value Read Back Blood Gas Notified Time Sodium Potassium Chloride Carbon Dioxide Anion Gap BUN Creatinine Est GFR ( Amer) Est GFR (Non-Af Amer) POC Glucose (mg/dL) 161 H 168 H 149 H Random Glucose Hemoglobin A1c Calcium Phosphorus Magnesium Total Bilirubin AST ALT Alkaline Phosphatase Troponin I Total Protein Albumin Globulin Albumin/Globulin Ratio Venous Blood Potassium Urine Color Urine Clarity Urine pH Ur Specific [place] Urine Protein Urine Glucose (UA) Urine Ketones Urine Blood Urine Nitrate Urine Bilirubin Urine Urobilinogen Ur Leukocyte Esterase Urine WBC (Auto) Urine RBC (Auto) Ur Squamous Epith Cells Urine Bacteria Urine Opiates Screen Urine Methadone Screen Ur Barbiturates Screen Ur Phencyclidine Scrn Ur Amphetamines Screen U Benzodiazepines Scrn U Oth Cocaine Metabols U Cannabinoids Screen Alcohol, Quantitative B-Hydroxybutyrate 10/06/17 10/06/17 10/06/17 07:10 07:10 07:10 WBC 3.7 L RBC 3.97 L Hgb 12.2 D Hct 34.6 L MCV 87.3 MCH 30.9 MCHC 35.4 RDW 13.0 Plt Count 162 MPV 9.0 Neut % (Auto) 58.6 Lymph % (Auto) 22.6 [place] % (Auto) 18.0 H Eos % (Auto) 0.3 Baso % (Auto) 0.5 Neut # (Auto) 2.2 Lymph # (Auto) 0.8 L [place] # (Auto) 0.7 Eos # (Auto) 0.0 Baso # (Auto) 0.0 pO2 VBG pH VBG pCO2 VBG HCO3 VBG Total CO2 VBG O2 Sat (Calc) VBG Base Excess VBG Potassium Glucose Lactate FiO2 Crit Value Called To Crit Value Called By Crit Value Read Back Blood Gas Notified Time Sodium 127 L Potassium 3.5 L Chloride 94 L Carbon Dioxide 23 Anion Gap 13 BUN 17 Creatinine 0.7 L Est GFR ( Amer) > 60 Est GFR (Non-Af Amer) > 60 POC Glucose (mg/dL) Random Glucose 170 H Hemoglobin A1c 6.1 Calcium 9.2 Phosphorus < 0.5 L* Magnesium 2.6 H Total Bilirubin 0.8 AST 95 H ALT 100 H Alkaline Phosphatase 89 Troponin I Total Protein 6.4 Albumin 3.6 Globulin 2.8 Albumin/Globulin Ratio 1.3 Venous Blood Potassium Urine Color Urine Clarity Urine pH Ur Specific [place] Urine Protein Urine Glucose (UA) Urine Ketones Urine Blood Urine Nitrate Urine Bilirubin Urine Urobilinogen Ur Leukocyte Esterase Urine WBC (Auto) Urine RBC (Auto) Ur Squamous Epith Cells Urine Bacteria Urine Opiates Screen Urine Methadone Screen Ur Barbiturates Screen Ur Phencyclidine Scrn Ur Amphetamines Screen U Benzodiazepines Scrn U Oth Cocaine Metabols U Cannabinoids Screen Alcohol, Quantitative B-Hydroxybutyrate EKG/Cardiology Studies: Cardiology / EKG Studies 10/05/17 14:56 ELECTROCARDIOGRAM Stat Comment: Mode Of Transportation: BED Reason For Exam: Detox/Psy 10/05/17 17:17 ELECTROCARDIOGRAM Stat Comment: Mode Of Transportation: BED Reason For Exam: Detox/Psy Critical Care Progress Note - Nutrition Nutrition: Nutrition Category Date Time Status Consistent Carbohydrate [DIET] Diets 10/06/17 Breakfast Active Attending/Attestation - Attestation I have personally seen and examined this patient.: Yes I have fully participated in the care of the patient.: Yes I have reviewed all pertinent clinical information: Yes Notes (Text): 10/06/17 13:24 I have seen and examined the patient. Medical records, lab studies, and imaging were reviewed by me and a management plan was formulated on multidisciplinary rounds with resident Dr. Blanco. I agree with their documented assessment and plan. Weaning patient off of insulin drip and onto short acting insulin sliding scale. 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 Patient is clinically stable for downgrade to the floors. Critical Care Time 35 minutes. Multi-disciplinary rounds were performed with house staff, nursing, speech therapy, respiratory therapy, pharmacy and nutrition with integrated input from the primary team/attending and other consulting services. The documented time is cumulative and includes review of patient data/exams/labs/chart review and examination of the patient on rounds and throughout the day; time is exclusive of any procedures or teaching time. 10/06/17 13:24
[2017-10-06] MEDS ORDERED: (Novolin R) Insulin Human Regular 100 units/ml vial SC SCH (12:00)
--- NOTE | 2017-10-06 12:22 | PCM.PSYCH ---
Initial Psychiatric Evaluation - Initial Psychiatric Evaluation Type of Admission: Voluntary Legal Status: Capacity History of Present Illness and Precipitating Events: PGY-1 Psych Consult note for Dr. 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 Patient initially presented for alcohol detox, was found to be in DKA and admitted to the ICU. During my interview, patient is awake, alert, calm and cooperative. Patient is requesting detox from alcohol. States he has periods of heavy drinking. Most recently, has been drinking 3.5 pints of vodka daily for the past month. His last drink was 3 days ago. He reports not taking any of his medications for the past month. Prior to this relapse, he was sober for 4 months. He quit on his own. He does not know why he began drinking again. Patient started drinking when he was 13 years old. He has been to detox "a few times" and rehab once "years ago" after which he was sober for some time and then relapsed. Patient's longest period of sobriety was for 9 months 2 years ago following detox. Patient states he gets the shakes for a few days after he stops drinking. No history of seizures. Patient also has a history of tobacco use since 11 years old. He smokes 1ppd. Denies illicit drug use. Patient complains of nausea. Denies current tremulousness, vomiting, abdominal pain, shortness of breath, dizziness, palpitations, restlessness, difficulty sleeping , auditory hallucinations, homicidal ideation. States he had visual hallucinations a few days ago that have resolved now, which he says is usual for him when he stops drinking. Patient denies current SI, but states he has suicidal ideation when he drinks. He has one previous suicide attempt by hanging a few years ago. Patient states he would like to attend AA meetings following discharge. Past psych hx: alcohol use disorder, "bipolar or schizophrenia"- patient unable to provide as he is unfamiliar with his condition. Has a private psychiatrist in [place], but unable to provide name. States he is on "many" psych meds, but hasn't taken them in a month. PMHx: IDDM Current Medications: Active Medications Generic Name Dose Route Start Last Admin Trade Name Freq PRN Reason Stop Dose Admin Enoxaparin Sodium 40 mg 10/06/17 10:00 10/06/17 10:47 Lovenox SC 40 mg DAILY MATTHEW Administration Folic Acid 1 mg 10/06/17 10:15 10/06/17 10:47 Folic Acid PO 1 mg DAILY MATTHEW Administration Potassium Phosphate 15 mmole/ 255 mls @ 42.5 mls/hr 10/06/17 08:33 10/06/17 09:01 Sodium Chloride IVPB 10/06/17 14:32 42.5 mls/hr ONCE ONE Administration Insulin Human Regular 0 unit 10/06/17 12:00 Novolin R SC Q4 MATTHEW Protocol Lorazepam 1 mg 10/06/17 10:03 Ativan PO Q4H PRN Symptoms of alcohol withdrawl Multivitamins 1 tab 10/06/17 10:15 10/06/17 10:47 Hexavitamin PO 1 tab DAILY MATTHEW Administration Nicotine 1 patch 10/06/17 10:00 10/06/17 10:47 Nicoderm Cq TD 1 patch DAILY MATTHEW Administration Pantoprazole Sodium 40 mg 10/06/17 10:00 10/06/17 10:47 Protonix Ec Tab PO 40 mg DAILY MATTHEW Administration Thiamine HCl 100 mg 10/06/17 10:15 10/06/17 10:47 Vitamin B1 Tab PO 100 mg DAILY MATTHEW Administration Past Psychiatric History - Past Psychiatric History Pertinent Medical Hx (Current Medical&Sleep Prob, Allergies): Allergies Allergy/AdvReac Type Severity Reaction Status Date / Time No Known Allergies Allergy Verified 10/05/17 13:58 Ondansetron [Zofran Odt] 4 mg PO TID PRN #9 odt 05/12/17 Benztropine [Benztropine Mesylate] 1 mg PO BID 10/05/17 Cyanocobalamin (Vitamin B-12) [Vitamin B12] 1,000 mcg PO DAILY 10/05/17 Haloperidol [Haldol] 10 mg PO BID 10/05/17 Wiseman Carbonate [Wiseman Carbonate 300MG] 300 mg PO BID 10/05/17 Multivitamin [Multivitamins] 1 each PO DAILY 10/05/17 Sertraline [Zoloft] 100 mg PO DAILY 10/05/17 risperiDONE [RisperDAL Tab] 1 mg PO DAILY 10/05/17 traZODone [trazODONE HYDROCHLORIDE] 50 mg PO HS 10/05/17 Review of Systems - Psychiatric Psychiatric: Abnormal Sleep Pattern, Visual Hallucinations. absent: Anhedonia, Anxiety, Auditory Hallucinations, Behavioral Changes, Depression, Difficulty Concentrating, Hallucinations, Homicidal Ideation, Mood Swings, Panic Attacks, Paranoia, Suicidal Ideation, Tactile Hallucinations Mental Status Examination - Personal Presentation Personal Presentation: Looks stated age - Affect Affect: Flat, Depressed - Motor Activity Motor Activity: Calm - Reliability in Providing Information Reliability in Providing Information: Fair - Speech Speech: Organized, Relevant - Mood Mood: Neutral - Formal Thought Process Formal Thought Process: No Impairment - Hallucinations/Delusions Hallucinations: Visual - Obsessions/Compulsions Obsessions: No Compulsions: No - Cognitive Functions Orientation: Person, Place, Situation, Time Sensorium: Alert Attention/Concentration: Attentive Judgement: Imparied, as evidence by: Poor judgement Memory: Recent impaired, as evidence by: Inability to recall events of the day - Strength & Assets Inventory Strength & Assets Inventory: Family support - Limitations Limitations: Other (unemployed) DSM 5 DX - Recommended/Plan of Treatment Treatment Recommendations and Plan of Treatment: alcohol use disorder severe Discharge Plan and Discharge Criteria: alcohol use disorder severe alcohol withdrawal [place] Lorazepam 1mg PO Q4H PRN Multivitamins PO daily Folic Acid 1mg SC daily Thiamine 100mg PO daily
[2017-10-06] MEDS: (Novolog) Insulin Aspart, Recombinant 100 u/ml 10 ml vial SC SCH ×3 (16:36→22:12)
[2017-10-06] MEDS: Insulin Detemir 100 units/ml Vial (Levemir) SC SCH (22:13)
--- NOTE | 2017-10-07 00:03 | CARD ---
APPROVED REPORT Date of service: 10/05/2017 EKG Measurement Heart [id number] <Conclusion> Normal sinus rhythm Possible Left atrial enlargement ST elevation, consider lateral injury or acute infarct Prolonged QT ACUTE MO / STEMI Abnormal ECG
--- NOTE | 2017-10-07 02:35 | CON ---
Copied To: Mago Fallon MD Attending MD: Mago Fallon MD DATE: 10/06/2017 ENDOCRINOLOGY CONSULT LOCATION: In ICU, room 12. HISTORY OF PRESENT ILLNESS: This is 32-year-old male with known history of type 1 insulin-dependent diabetes, apparently off insulin for over a month with apparent deliberate discontinuation of his insulin regimen and has since then had marked polyuria, polydipsia, nocturia, with about a 10 pound or so weight loss and actually came into the hospital for alcohol detox and has been referred now for diabetic evaluation because of supervening diabetic ketoacidosis and dehydration. PAST MEDICAL HISTORY: As mentioned above, history of type 1 insulin-dependent diabetes. MEDICATIONS: Currently, using Levemir given as 40 units subcu at bedtime daily, with NovoLog given as 3 units t.i.d. before meals. FAMILY HISTORY: Possible diabetes and hypertension. SOCIAL HISTORY: The patient admits to chronic alcoholism with active intake of heavy liquor like vodka almost on a day to day basis. He also admits to nicotine dependence and smokes a pack a day for over 20 years. REVIEW OF SYSTEMS: As mentioned above, admits to generalized body weakness with easy fatigability and tiredness with suboptimal energy level with progressive bouts of dizziness and lightheadedness, worse on the day of admission. No chest pains or palpitations, or PND. His oral intake is variable with nausea, dyspepsia, and vague upper abdominal pains with episodic vomiting episodes. PHYSICAL EXAMINATION: GENERAL: This is an average-built male, in no apparent distress. VITAL SIGNS: Blood pressure 150/90, pulse of 70 beats per minute and regular, temperature 98, respirations 20, height is 5 feet 10 inches, weight is 163 pounds. HEENT: Head: Normocephalic. Eyes: Anicteric with pink conjunctivae. Funduscopy not possible at this time. Ears, nose, and throat, otherwise normal. NECK: Supple. Thyroid gland is normal size. No carotid bruits or any cervical adenopathy. CARDIOPULMONARY: Some adynamic precordium. S1 and S2 are rapid and regular. LUNGS: Clear to auscultation. ABDOMEN: Flat and soft, with positive bowel sounds. EXTREMITIES: No peripheral edema. Pulses are +2 bilaterally. LABORATORY DATA: Chemistries today showed a BUN of 17, sodium 127, potassium 3.5, chloride 94, CO2 23, glucose 117, and creatinine 0.7. His glucose levels have ranged from 149 to 168 mg/dL. ASSESSMENT: This is a 32-year-old male with uncontrolled and decompensative type 1 insulin-dependent diabetes, presenting here with diabetic ketoacidosis and dehydration with spurious hyponatremia and is now being referred for diabetic evaluation and management. PLAN OF MANAGEMENT: We will switch him over now to a more physiologic basal and bolus insulin drug combination with NovoLog to be started at 6 units subcu t.i.d. before meals to start today. We will also add Levemir given as 20 units subcu at bedtime daily, to start tonight. We will modify the coverage scale to obviate hypoglycemia and detailed orders have been given. We will obtain serial chemistries and supplement accordingly as needed. We will follow. Mago Fallon MD
[2017-10-07 06:41] LABS: BASO % 1.1 % (0.0-2.0); EOS % 0.6 % (0.0-4.0); LYMPH # 1.3 K/uL (1.0-4.3); LYMPH % 37.8 % (20.0-40.0); MEAN CORPUSCULAR HEMOGLOBIN 31.5 pg (27.0-31.0); MEAN CORPUSCULAR HGB CONC 36.1 g/dL (33.0-37.0); MEAN PLATELET VOLUME 8.4 fL (7.2-11.7); MONO # 0.6 K/uL (0.0-0.8); MONO % 17.1 % (0.0-10.0); NEUT # 1.5 K/uL (1.8-7.0); NEUT % 43.4 % (50.0-75.0); NRBC % 0.2 % (0.0-2.0); RBC 3.5 Mil/uL (4.40-5.90); RED CELL DISTRIBUTION WIDTH 13.6 % (11.5-14.5); WHITE BLOOD COUNT 3.5 K/uL (4.8-10.8)
[2017-10-07 06:49] LABS: ALB/GLOB RATIO 1.2 (1.0-2.1); ALBUMIN 3.4 g/dL (3.5-5.0); ALT/SGPT 99 U/L (21-72); AST/SGOT 120 U/L (17-59); BLOOD UREA NITROGEN 16 mg/dL (9-20); CALCIUM 8.9 mg/dl (8.6-10.4); GFR NON-AFRICAN AMERICAN > 60
[2017-10-07] MEDS ORDERED: Potassium Chloride 20 mEq ER Tab PO ONE ×2 (07:10→19:30)
--- NOTE | 2017-10-07 07:15 | CP.PCM.PN ---
Subjective - Date & Time of Evaluation Date of Evaluation: 10/07/17 Time of Evaluation: 09:15 - Subjective Subjective: PGY 1 Medicine Progress Note for Dr. Ramirez. Patient seen and examined at bedside. Patient said he feels much better. Patient currently does not have any complaints. Patient denies chest pain, SOB, abdominal pain, nausea, vomiting, excess thirst, urination. Objective - Vital Signs/Intake and Output Vital Signs (last 24 hours): Temp Pulse Resp BP Pulse Ox 98.6 F 87 14 118/78 99 10/07/17 04:00 10/07/17 04:00 10/07/17 04:00 10/07/17 04:00 10/07/17 04:00 Intake and Output: 10/07/17 10/07/17 06:59 18:59 Intake Total 240 Output Total 850 Balance -610 - Medications Medications: Current Medications Enoxaparin Sodium (Lovenox) 40 mg SC DAILY [facility] Last Admin: 10/06/17 10:47 Dose: 40 mg Folic Acid (Folic Acid) 1 mg PO DAILY [facility] Last Admin: 10/06/17 10:47 Dose: 1 mg Potassium Phosphate 15 mmole/ (Sodium Chloride) 255 mls @ 42.5 mls/hr IVPB ONCE ONE Stop: 10/07/17 13:04 Insulin Aspart (Novolog) 6 unit SC AC [facility] Last Admin: 10/06/17 16:44 Dose: 6 u Insulin Aspart (Novolog) 0 unit SC ACHS [facility] PRN Reason: Protocol Last Admin: 10/06/17 22:12 Dose: Not Given Insulin Detemir (Levemir) 20 unit SC HS [facility] Last Admin: 10/06/17 22:13 Dose: 20 units Lorazepam (Ativan) 1 mg PO Q4H PRN PRN Reason: Symptoms of alcohol withdrawl Multivitamins (Hexavitamin) 1 tab PO DAILY [facility] Last Admin: 10/06/17 10:47 Dose: 1 tab Nicotine (Nicoderm Cq) 1 patch TD DAILY [facility] Last Admin: 10/06/17 10:47 Dose: 1 patch Pantoprazole Sodium (Protonix Ec Tab) 40 mg PO DAILY [facility] Last Admin: 10/06/17 10:47 Dose: 40 mg Potassium Chloride (K-Dur 20 Meq Er Tab) 40 meq PO DAILY ONE Stop: 10/07/17 07:11 Thiamine HCl (Vitamin B1 Tab) 100 mg PO DAILY MATTHEW Last Admin: 10/06/17 10:47 Dose: 100 mg - Labs Labs: 10/07/17 06:26 10/07/17 06:26 - Constitutional Appears: Non-toxic, No Acute Distress - Head Exam Head Exam: ATRAUMATIC, NORMAL INSPECTION, NORMOCEPHALIC - Eye Exam Eye Exam: EOMI, Normal appearance - ENT Exam ENT Exam: Mucous Membranes Moist - Respiratory Exam Respiratory Exam: Clear to Ausculation Bilateral, NORMAL BREATHING PATTERN. absent: Rales, Rhonchi, Wheezes - Cardiovascular Exam Cardiovascular Exam: +S1, +S2. absent: Irregular Rhythm, Murmur - GI/Abdominal Exam GI & Abdominal Exam: Soft, Normal Bowel Sounds. absent: Guarding, Rigid, Tenderness - Neurological Exam Neurological Exam: Alert, Awake - Psychiatric Exam Psychiatric exam: Flat Affect, Normal Mood - Skin Skin Exam: Dry, Intact, Normal Color Assessment and Plan - Assessment and Plan (Free Text) Assessment: 32 year old male with a past medical history of IDDM and alcohol abuse presenting to the emergency room presenting for detox from alcohol. Found to have DKA ( likely 2/2 non compliance - hasn't been taking his home insulin for the past 2 weeks), anion gap currently closed and off of the insulin ggt. 1) Hypokalemia - K+ 2.8 in AM - 40 meq PO KCl - Potassium phosphate 15mmole - F/u K+ 3.5 2) Hypophosphotemia - Phosphate in AM 0.6 - Potassium phosphate 15mmole - F/u phos 1.9 3) Diabetes - Insulin levemir 20 units HS - Insulin aspart 6 units AC - accuchecks - ISS 4) ETOH dependence/ detox - ativan PO Q4H PRN - Psych consulted - no further intervention - Continue multivit, folic acid, & thiamine - CIWA protocol 5) GI/DVt ppx - protonix 40mg and lovenox 40 mg sc
[2017-10-07] MEDS: (Novolog) Insulin Aspart, Recombinant 100 u/ml 10 ml vial SC SCH ×7 (07:33→22:02)
[2017-10-07] MEDS ORDERED: Potassium Phosphate 15 MMOLE in Sodium Chloride 0.9% 250 ML IVPB ONE (09:00)
[2017-10-07] MEDS: Multiple Vitamins Tab PO SCH (09:45)
[2017-10-07] MEDS: Pantoprazole 40 mg EC Tab PO SCH (09:45)
[2017-10-07] MEDS: Enoxaparin 40 mg Syringe SC SCH (09:46)
[2017-10-07] MEDS ORDERED: Pneumococcal 23-Valent Vaccine IM ONE (10:00)
--- NOTE | 2017-10-07 15:37 | PCM.PYCHPN ---
Psychiatric Progress Note - Psychiatric Progress Note Patient seen today, length of contact: 16 Patient Chief Complaint: I don't know if I'm getting better. Problems Identified/Issues Discussed: PGY-1 Psychiatric Progress note for Dr. Harrington. Patient was seen, chart reviewed and case discussed. As per nurse, no acute events overnight and did not require Ativan. Patient remains with CIWA score of 0. Patient states he slept well, but admits to depressed mood. Denies suicidal ideation, homicidal ideation, AVH, nausea, vomiting, abdominal pain, diaphoresis , anxiety. Patient states he would like to attend either AA meetings or rehab following discharge and would like help setting it up. Supportive therapy and psycho-education given. Medication Change: No Mental Status Examination - Cognitive Function Orientation: Person, Place, Situation, Time - Mood Mood: Neutral - Affect Affect: Flat, Depressed - Formal Thought Process Formal Thought Process: No Impairment - Suicidal Ideation Suicidal Ideation: No - Homicidal Ideation Homicidal Ideation: No Goal/Treatment Plan - Goal/Treatment Plan Progress Toward Problem(s) and Goals/Treatment Plan: alcohol use disorder severe Lorazepam 1mg PO Q4H PRN Multivitamins PO daily Folic Acid 1mg SC daily Thiamine 100mg PO daily Patient without withdrawal symptoms presently. Social work referral placed for guidance on outpatient programs. No further management from psych standpoint, will sign off. Re-consult as necessary.
[2017-10-07] MEDS ORDERED: Potassium & Sodium Phosphate PO ONE (18:33)
--- NOTE | 2017-10-07 21:59 | PN ---
Copied To: Mago Fallon MD Attending MD: Mago Fallon MD DATE: 10/07/2017 ENDO FOLLOWUP NOTE LOCATION: ICU room 12. SUBJECTIVE: This is a 32-year-old male with recent uncontrolled type 2 insulin-requiring diabetes, presenting with marked hyperglycemic accelerations and supervening diabetic ketoacidosis and dehydration. He received vigorous IV hydration and intensive insulin therapy in the ICU and is now improving clinically and metabolically as noted there of. His oral intake, however, remains variable and the glucose values today have ranged from 100 to 264 to 109 mg/dL. LABORATORY DATA: His latest chemistry showed a BUN of 16, sodium 131, potassium 2.8, chloride 100, CO2 of 22, glucose 109, creatinine 0.6. ASSESSMENT AND PLAN: So at this time, we will continue the same basal and bolus insulin regimen to allow for dose equilibration and keeping on the Levemir given as 20 units subcutaneously at bedtime daily to start tonight. We will continue NovoLog given as 6 units subcutaneously three times a day before meals as ordered. We will continue also the low-dose correction scale using NovoLog insulin as given. We will continue the intravenous hydration with potassium supplementation as given. We will obtain serial chemistries and supplement accordingly as needed. We will follow up. Mago Fallon MD
[2017-10-07] MEDS: Insulin Detemir 100 units/ml Vial (Levemir) SC SCH (22:13)
[2017-10-08 00:38] VITALS: RESP 20
--- NOTE | 2017-10-08 06:21 | CP.PCM.PN ---
Subjective - Date & Time of Evaluation Date of Evaluation: 10/08/17 Time of Evaluation: 07:30 - Subjective Subjective: PGY - [address] Note [address] Ramirez. Patient was seen and examined today at bedside. No acute events overnight. Patient reports feeling better but was unable to fall asleep last night. Patient denies any chest pain, SOB, abdominal pain, nausea, vomiting or excess thirst. Patient reports he has been having normal bowel movements, urination and diet. Objective - Vital Signs/Intake and Output Vital Signs (last 24 hours): Temp Pulse Resp BP Pulse Ox 97.9 F 89 20 134/90 100 10/08/17 00:00 10/08/17 00:00 10/08/17 00:00 10/08/17 00:00 10/08/17 00:00 Intake and Output: 10/07/17 10/08/17 18:59 06:59 Intake Total 390 230 Output Total 400 1000 Balance -10 -770 - Medications Medications: Current Medications Enoxaparin Sodium (Lovenox) 40 mg SC DAILY [facility] Last Admin: 10/07/17 09:46 Dose: 40 mg Folic Acid (Folic Acid) 1 mg PO DAILY [facility] Last Admin: 10/07/17 09:45 Dose: 1 mg Insulin Aspart (Novolog) 6 unit SC AC [facility] Last Admin: 10/07/17 16:29 Dose: 6 u Insulin Aspart (Novolog) 0 unit SC ACHS [facility] PRN Reason: Protocol Last Admin: 10/07/17 22:02 Dose: Not Given Insulin Detemir (Levemir) 20 unit SC HS [facility] Last Admin: 10/07/17 22:13 Dose: 20 units Lorazepam (Ativan) 1 mg PO Q4H PRN PRN Reason: Symptoms of alcohol withdrawl Multivitamins (Hexavitamin) 1 tab PO DAILY [facility] Last Admin: 10/07/17 09:45 Dose: 1 tab Nicotine (Nicoderm Cq) 1 patch TD DAILY [facility] Last Admin: 10/07/17 09:45 Dose: 1 patch Pantoprazole Sodium (Protonix Ec Tab) 40 mg PO DAILY [facility] Last Admin: 10/07/17 09:45 Dose: 40 mg Thiamine HCl (Vitamin B1 Tab) 100 mg PO DAILY [facility] Last Admin: 10/07/17 09:45 Dose: 100 mg - Labs Labs: 10/07/17 06:26 10/07/17 15:51 - Constitutional Appears: Non-toxic, No Acute Distress - Head Exam Head Exam: ATRAUMATIC, NORMAL INSPECTION, NORMOCEPHALIC - Eye Exam Eye Exam: EOMI, Normal appearance, PERRL - ENT Exam ENT Exam: Mucous Membranes Moist - Respiratory Exam Respiratory Exam: Clear to Ausculation Bilateral, NORMAL BREATHING PATTERN. absent: Rales, Rhonchi, Wheezes - Cardiovascular Exam Cardiovascular Exam: +S1. absent: Irregular Rhythm, Murmur - GI/Abdominal Exam GI & Abdominal Exam: Soft, Normal Bowel Sounds. absent: Firm, Guarding, Rigid - Extremities Exam Extremities Exam: Full ROM, Normal Inspection. absent: Calf Tenderness, Pedal Edema, Tenderness - Neurological Exam Neurological Exam: Alert, Awake, Oriented x3 - Psychiatric Exam Psychiatric exam: Normal Affect, Normal Mood - Skin Skin Exam: Dry, Intact, Normal Color, Warm Assessment and Plan - Assessment and Plan (Free Text) Assessment: 32 year old male with a past medical history of IDDM and alcohol abuse presenting to the emergency room presenting for detox from alcohol. Found to have DKA ( likely 2/2 non compliance - hasn't been taking his home insulin for the past 2 weeks), anion gap currently closed and off of the insulin ggt. Assessment/Plan: 1) Insomnia -Trazadone 100 mg PO once at night 2) Hypokalemia - Resolved -Resolved now at 3.6 3) Hypophosphotemia -Stable at 1.6 -Most likely secondary to decreased recent dietary intake 4) Diabetes -Continue Insulin Levemir 20 units HS -Continue Insulin Aspart 6 units AC -Accuchecks -ISS -Diabetic education provided to patient 4) EtOH dependence/ detox: -Ativan PO q4h prn -Librium not given secondary to elevated AST and ALT -Psych recs: referral placed for guidance on outpatient programs, psych signed off -Continue multivitamin, folic acid and thiamine -[facility] protocol 5) DKA - Resolved - on admission patient had gap, now closed 5) PPx: -GI ppx Protonix 40 mg -DVt ppx Lovenox 40 mg Dispo: Patient requesting detox; however, patient is not a candidate for detox. Patient likely D/C in AM on 10/08. Patient states he has prescription for all his medications and does not need any new prescriptions. d/w Dr. Ashley Foreman PGY-1
[2017-10-08 07:24] LABS: ALB/GLOB RATIO 1.2 (1.0-2.1); ALBUMIN 3.4 g/dL (3.5-5.0); ALT/SGPT 112 U/L (21-72); AST/SGOT 119 U/L (17-59); BLOOD UREA NITROGEN 13 mg/dL (9-20); CALCIUM 9.3 mg/dl (8.6-10.4); GFR NON-AFRICAN AMERICAN > 60
[2017-10-08 07:43] LABS: EOS % 0.7 % (0.0-4.0); HEMOGLOBIN 11.8 g/dL (12.0-18.0); LYMPH # 1.2 K/uL (1.0-4.3); MEAN CORPUSCULAR HEMOGLOBIN 31.6 pg (27.0-31.0); MEAN CORPUSCULAR HGB CONC 35.1 g/dL (33.0-37.0); MEAN PLATELET VOLUME 8.2 fL (7.2-11.7); NEUT # 1.4 K/uL (1.8-7.0); NRBC % 0.3 % (0.0-2.0); RBC 3.74 Mil/uL (4.40-5.90); RED CELL DISTRIBUTION WIDTH 13.5 % (11.5-14.5); WHITE BLOOD COUNT 3.3 K/uL (4.8-10.8)
[2017-10-08 07:50] LABS: LYMPH % 35.9 % (20.0-40.0); MEAN CELL VOLUME 89.8 fL (80.0-94.0); MONO % 18.6 % (0.0-10.0); NEUT % 43.8 % (50.0-75.0)
[2017-10-08 07:51] LABS: MONO # 0.7 K/uL (0.0-0.8)
[2017-10-08] MEDS: (Novolog) Insulin Aspart, Recombinant 100 u/ml 10 ml vial SC SCH ×7 (07:53→22:00)
[2017-10-08] MEDS: Pantoprazole 40 mg EC Tab PO SCH (09:18)
[2017-10-08] MEDS: Enoxaparin 40 mg Syringe SC SCH (09:18)
[2017-10-08] MEDS: Multiple Vitamins Tab PO SCH (09:18)
[2017-10-08] MEDS: Insulin Detemir 100 units/ml Vial (Levemir) SC SCH (22:20)
--- NOTE | 2017-10-09 02:53 | PN ---
Copied To: Mago Fallon MD Attending MD: DATE: 10/08/2017 ROOM#: [id number]. SUBJECTIVE: This is a 32-year-old male with recent acute alcoholic intoxication on the background of chronic alcoholism and admitted here with marked hyperglycemic accelerations and concomitant diabetic ketoacidosis and dehydration and is now improving clinically and metabolically as noted thereof. His glucose values today have ranged from 97 to 292 mg/dL. It was 246 early this morning and 222 at bedtime last night. LABORATORY DATA: His chemistry showed a BUN of 13, sodium 133, potassium 3.6, chloride 102, CO2 21, glucose 235 and creatinine 0.7. ASSESSMENT AND PLAN: So at this time, we will continue to modify basal and bolus insulin regimen to allow for dose equilibration and keep him on the NovoLog given as 6 units t.i.d. before meals as ordered. We will continue the Levemir given as 20 units subcutaneously at bedtime daily as given. We will obtain serial chemistries and supplement accordingly as needed. We will follow up with you. Mago Fallon MD
[2017-10-09] MEDS ORDERED: (Novolog) Insulin Aspart, Recombinant 100 u/ml 10 ml vial SC SCH ×2 (07:30→11:30)
[2017-10-09 07:31] LABS: BASO % 0.8 % (0.0-2.0); EOS % 0.4 % (0.0-4.0); HEMOGLOBIN 11.2 g/dL (12.0-18.0); LYMPH # 1.1 K/uL (1.0-4.3); MEAN CELL VOLUME 91.1 fL (80.0-94.0); MEAN CORPUSCULAR HEMOGLOBIN 32.2 pg (27.0-31.0); MEAN CORPUSCULAR HGB CONC 35.3 g/dL (33.0-37.0); MEAN PLATELET VOLUME 7.6 fL (7.2-11.7); MONO # 0.8 K/uL (0.0-0.8); MONO % 25.1 % (0.0-10.0); NEUT # 1.4 K/uL (1.8-7.0); NEUT % 41.7 % (50.0-75.0); NRBC % 0.2 % (0.0-2.0); PLATELET COUNT 273 K/uL (130-400); RBC 3.49 Mil/uL (4.40-5.90); RED CELL DISTRIBUTION WIDTH 13.6 % (11.5-14.5); WHITE BLOOD COUNT 3.4 K/uL (4.8-10.8)
[2017-10-09 07:53] LABS: ALB/GLOB RATIO 1.1 (1.0-2.1); ALBUMIN 3.1 g/dL (3.5-5.0); ALT/SGPT 121 U/L (21-72); AST/SGOT 89 U/L (17-59); BLOOD UREA NITROGEN 9 mg/dL (9-20); CALCIUM 9.3 mg/dl (8.6-10.4); GFR NON-AFRICAN AMERICAN > 60
[2017-10-09] MEDS: (Novolog) Insulin Aspart, Recombinant 100 u/ml 10 ml vial SC SCH ×2 (07:54→11:41)
[2017-10-09 08:41] VITALS: BP 127/82; PULSE 94; TEMP 97.5; O2SAT 99
[2017-10-09] MEDS: Enoxaparin 40 mg Syringe SC SCH (09:44)
[2017-10-09] MEDS: Pantoprazole 40 mg EC Tab PO SCH (09:44)
[2017-10-09] MEDS: Multiple Vitamins Tab PO SCH (09:44)
[2017-10-09 10:08] LABS: LYMPHOCYTE 35 % (20-40); TOTAL CELLS COUNTED 100
[2017-10-09 10:09] LABS: BANDS 1 % (0-2); MONOCYTE 16 % (0-10); NEUTROPHIL 48 % (50-75); PLATELET ESTIMATE NORMAL (NORMAL)
--- NOTE | 2017-10-09 13:19 | CP.PCM.DIS ---
Provider - Provider Date of Admission: 10/05/17 17:40 Attending physician: Jayden Ramirez Jr, MD Time Spent in preparation of Discharge (in minutes): 40 Hospital Course - Lab Results Lab Results: Micro Results 10/05/17 21:57 Nose MRSA Culture (Admit) - Final MRSA NOT DETECTED Most Recent Lab Values WBC 3.4 K/uL (4.8-10.8) L 10/09/17 07:09 RBC 3.49 Mil/uL (4.40-5.90) L 10/09/17 07:09 Hgb 11.2 g/dL (12.0-18.0) L 10/09/17 07:09 Hct 31.8 % (35.0-51.0) L 10/09/17 07:09 MCV 91.1 fL (80.0-94.0) 10/09/17 07:09 MCH 32.2 pg (27.0-31.0) H 10/09/17 07:09 MCHC 35.3 g/dL (33.0-37.0) 10/09/17 07:09 RDW 13.6 % (11.5-14.5) 10/09/17 07:09 Plt Count 273 K/uL (130-400) 10/09/17 07:09 MPV 7.6 fL (7.2-11.7) 10/09/17 07:09 Neut % (Auto) 41.7 % (50.0-75.0) L 10/09/17 07:09 Lymph % (Auto) 32.0 % (20.0-40.0) 10/09/17 07:09 [place] % (Auto) 25.1 % (0.0-10.0) H 10/09/17 07:09 Eos % (Auto) 0.4 % (0.0-4.0) 10/09/17 07:09 Baso % (Auto) 0.8 % (0.0-2.0) 10/09/17 07:09 Neut # (Auto) 1.4 K/uL (1.8-7.0) L 10/09/17 07:09 Lymph # (Auto) 1.1 K/uL (1.0-4.3) 10/09/17 07:09 [place] # (Auto) 0.8 K/uL (0.0-0.8) 10/09/17 07:09 Eos # (Auto) 0.0 K/uL (0.0-0.7) 10/09/17 07:09 Baso # (Auto) 0.0 K/uL (0.0-0.2) 10/09/17 07:09 Neutrophils % (Manual) 48 % (50-75) L 10/09/17 07:09 Band Neutrophils % 1 % (0-2) 10/09/17 07:09 Lymphocytes % (Manual) 35 % (20-40) 10/09/17 07:09 Monocytes % (Manual) 16 % (0-10) H 10/09/17 07:09 Platelet Estimate Normal (NORMAL) 10/09/17 07:09 RBC Morphology Normal 10/09/17 07:09 pO2 64 mm/Hg (30-55) H 10/05/17 23:43 VBG pH 7.47 (7.32-7.43) H 10/05/17 23:43 VBG pCO2 36 mmHg (40-60) L 10/05/17 23:43 VBG HCO3 26.9 mmol/L 10/05/17 23:43 VBG Total CO2 27.3 mmol/L (22-28) 10/05/17 23:43 VBG O2 Sat (Calc) 95.8 % (40-65) H 10/05/17 23:43 VBG Base Excess 2.7 mmol/L (0.0-2.0) H 10/05/17 23:43 VBG Potassium 2.9 mmol/L (3.6-5.2) L 10/05/17 23:43 Sodium 123.0 mmol/l (132-148) L 10/05/17 23:43 Chloride 87.0 mmol/L (98-107) L 10/05/17 23:43 Glucose 202 mg/dl (75-110) H 10/05/17 23:43 Lactate 1.4 mmol/L (0.7-2.1) 10/05/17 23:43 FiO2 21.0 % 10/05/17 16:35 Crit Value Called To Dr steel 10/05/17 16:35 Crit Value Called By Fareed ponce 10/05/17 16:35 Crit Value Read Back Y 10/05/17 16:35 Blood Gas Notified Time 1643 10/05/17 16:35 Sodium 136 mmol/L (132-148) 10/09/17 07:09 Potassium 3.9 mmol/L (3.6-5.2) 10/09/17 07:09 Chloride 101 mmol/L (98-107) 10/09/17 07:09 Carbon Dioxide 22 mmol/L (22-30) 10/09/17 07:09 Anion Gap 16 (10-20) 10/09/17 07:09 BUN 9 mg/dL (9-20) 10/09/17 07:09 Creatinine 0.6 mg/dL (0.8-1.5) L 10/09/17 07:09 Est GFR ( Amer) > 60 10/09/17 07:09 Est GFR (Non-Af Amer) > 60 10/09/17 07:09 POC Glucose (mg/dL) 85 mg/dL (65-110) 10/09/17 11:17 Random Glucose 312 mg/dL (75-110) H 10/09/17 07:09 Hemoglobin A1c 6.1 % (4.2-6.5) 10/06/17 07:10 Calcium 9.3 mg/dl (8.6-10.4) 10/09/17 07:09 Phosphorus 2.8 mg/dL (2.5-4.5) 10/09/17 07:09 Magnesium 1.9 mg/dL (1.6-2.3) 10/09/17 07:09 Total Bilirubin 0.5 mg/dL (0.2-1.3) 10/09/17 07:09 AST 89 U/L (17-59) H D 10/09/17 07:09 ALT 121 U/L (21-72) H 10/09/17 07:09 Alkaline Phosphatase 90 U/L (38-126) 10/09/17 07:09 Ammonia 11 umol/L (9-33) 10/06/17 16:33 Troponin I < 0.0120 ng/mL (0.00-0.120) 10/05/17 17:22 Total Protein 5.8 g/dL (6.3-8.3) L 10/09/17 07:09 Albumin 3.1 g/dL (3.5-5.0) L 10/09/17 07:09 Globulin 2.7 gm/dL (2.2-3.9) 10/09/17 07:09 Albumin/Globulin Ratio 1.1 (1.0-2.1) 10/09/17 07:09 Venous Blood Potassium 2.9 mmol/L (3.6-5.2) L 10/05/17 23:43 Urine Color Yellow (YELLOW) 10/05/17 18:24 Urine Clarity Clear (Clear) 10/05/17 18:24 Urine pH 6.0 (5.0-8.0) 10/05/17 18:24 Ur Specific [place] 1.013 (1.003-1.030) 10/05/17 18:24 Urine Protein 2+ mg/dL (NEGATIVE) H 10/05/17 18:24 Urine Glucose (UA) 3+ mg/dL (Normal) H 10/05/17 18:24 Urine Ketones 2+ mg/dL (NEGATIVE) H 10/05/17 18:24 Urine Blood 1+ (NEGATIVE) H 10/05/17 18:24 Urine Nitrate Negative (NEGATIVE) 10/05/17 18:24 Urine Bilirubin Negative (NEGATIVE) 10/05/17 18:24 Urine Urobilinogen Normal mg/dL (0.2-1.0) 10/05/17 18:24 Ur Leukocyte Esterase Neg Brij[place]/uL (Negative) 10/05/17 18:24 Urine WBC (Auto) < 1 /hpf (0-5) 10/05/17 18:24 Urine RBC (Auto) 2 /hpf (0-3) 10/05/17 18:24 Ur Squamous Epith Cells < 1 /hpf (0-5) 10/05/17 18:24 Urine Bacteria Rare (<OCC) 10/05/17 18:24 Urine Opiates Screen Negative (NEGATIVE) 10/05/17 18:24 Urine Methadone Screen Negative (NEGATIVE) 10/05/17 18:24 Ur Barbiturates Screen Negative (NEGATIVE) 10/05/17 18:24 Ur Phencyclidine Scrn Negative (NEGATIVE) 10/05/17 18:24 Ur Amphetamines Screen Negative (NEGATIVE) 10/05/17 18:24 U Benzodiazepines Scrn Negative (NEGATIVE) 10/05/17 18:24 U Oth Cocaine Metabols Negative (NEGATIVE) 10/05/17 18:24 U Cannabinoids Screen Negative (NEGATIVE) 10/05/17 18:24 Alcohol, Quantitative < 10 mg/dl (0-10) 10/05/17 15:51 B-Hydroxybutyrate 6.69 mM (0.02-0.27) H 10/05/17 18:11 - Hospital Course Hospital Course: Patient is a 32 year old male with a past medical history of IDDM and alcohol abuse presenting to the emergency room presenting for detox. Patient states that he normally drinks 3 fifths of vodka per day and has been drinking heavily since high school. His last drink was 3 days ago and patient states that he wants to quit drinking. He lost his job in the [employer] because he was drinking and states his entire life revolves around drinking. He also reports not taking his insulin for more than a month. He was nauseous and vomiting earlier prior to coming to the emergency department. He is no longer feeling nauseous but still feels weak overall. He otherwise has no complaints. Denies fevers, chills, nausea, vomiting, diarrhea, constipation, chest pain, shortness of breath, abdominal pain, vision changes, skin color changes, tremors, numbness or tingling. PMH: IDDM and alcohol abuse PSH: unknown Family: Mother - DM Social: smokes 1 ppd since teenager, drinks 3 fifths of vodka per day, denies any illicit drug use in the past Allergies: NKDA Meds: Supposed to take but has not taken in over a month. * Novolog 3u SC ACTID * Insulin Flex Pen 40u SC Hospital Course: 32 year old male with a past medical history of IDDM and alcohol abuse presenting to the emergency room presenting for detox from alcohol. Found to have DKA ( likely 2/2 non compliance - hasn't been taking his home insulin for the past 2 weeks), anion gap currently closed and off of the insulin ggt. Patient was also acutely treated for his alcohol abuse/detox, psych Dr. Harrington was consulted. Alcohol cessation was discussed and the importance of compliance of home medications. Patient was seen and examined today at bedside. No acute events overnight. Patient reports feeling better and was ready to go home. Patient denies any chest pain, SOB, abdominal pain, nausea, vomiting or excess thirst. This is a summary of the patient's hospital course. Please refer to EMR for complete details. Discharge Exam - Head Exam Head Exam: ATRAUMATIC, NORMAL INSPECTION, NORMOCEPHALIC - Eye Exam Eye Exam: EOMI, Normal appearance - ENT Exam ENT Exam: Mucous Membranes Moist - Respiratory Exam Respiratory Exam: Clear to PA & Lateral, NORMAL BREATHING PATTERN - Cardiovascular Exam Cardiovascular Exam: REGULAR RHYTHM, +S1, +S2 - GI/Abdominal Exam GI & Abdominal Exam: Normal Bowel Sounds, Soft. absent: Tenderness - Extremities Exam Extremities exam: normal inspection - Neurological Exam Neurological exam: Alert, Oriented x3 - Psychiatric Exam Psychiatric exam: Normal Affect, Normal Mood - Skin Skin Exam: Normal Color Discharge Plan - Follow Up Plan Condition: GOOD Disposition: HOME/ ROUTINE Instructions: Diabetic Ketoacidosis (DC) Additional Instructions: Patient stable for discharge to home per Dr. Ramirez. Patient should follow up with his primary doctor in 1-2 weeks. Patient should continue all his current home medications. If symptoms arise again, patient should return to the closest emergency medical facility. Thank you. Referrals: Violet Brewer MD [Staff Provider] -
--- NOTE | 2017-10-09 14:53 | PN ---
Copied To: Mago Fallon MD Attending MD: Mago Fallon MD DATE: 10/09/2017 ENDO FOLLOWUP NOTE LOCATION: In room 350. SUBJECTIVE: This is a 32-year-old male with recent uncontrolled type 2 insulin-requiring diabetes, now being followed closely for metabolic management. His glycemic levels are fluctuating as noted overnight and the glucose levels have ranged from 304 to 345 mg/dL. LABORATORY DATA: His latest chemistries include a BUN of 9, sodium 136, potassium 3.9, chloride 101, CO2 of 22, glucose 312. ASSESSMENT AND PLAN: So at this time, we will modify once again his basal and bolus insulin regimen and increase the Novolog to 12 units subcutaneously t.i.d. before meals to start today. We will also increase his basal insulin with Levemir to be given as 24 units subcutaneously at bedtime daily to start tonight. We will modify the coverage scale to obviate hypoglycemia and detailed orders have been given. We will obtain serial chemistries and supplement accordingly as needed. We will follow. Mago Fallon MD
[2017-10-09] MEDS ORDERED: Insulin Detemir 100 units/ml Vial (Levemir) SC SCH (22:00)
--- NOTE | 2017-10-10 15:18 | PN ---
Copied To: Mago Fallon MD Attending MD: Mago Fallon MD DATE: 10/10/2017 ENDO FOLLOWUP NOTE. LOCATION: Room 350. SUBJECTIVE: This is a 32-year-old male with recent uncontrolled type 2 insulin-requiring diabetes, now being followed closely for metabolic management. He also alcoholic intoxication with underlying chronic alcoholism, pending an eventual admission to an alcohol detox and rehab unit. His glycemic levels are fluctuating as noted. His latest chemistries show a BUN of 9, sodium 136, potassium 3.9, chloride 101, CO2 of 22, glucose 312, and creatinine 0.6. ASSESSMENT AND PLAN: So, at this time, we will continue the modified basal and bolus insulin regimen as given with NovoLog given as 12 units subcutaneously t.i.d. before meals as ordered. We will continue the Levemir given as 24 units subcutaneously at bedtime daily as given. We will titrate incrementally as indicated to optimize metabolic control. We will obtain serial chemistries and supplement accordingly as needed. We will follow. Mago Fallon MD
== END 2017-10-09 14:29 | disposition home or self-care (01) | DRG 566 ==
LOC: C.ER 13:54 → C.9E 17:40 → C.9I 21:03 → C.3T 10-07 22:50
PROVIDERS: ADMIT Internal Medicine; ATTEND Internal Medicine
DX: E10.10 Type 1 diabetes mellitus with ketoacidosis without coma (principal); F10.230 Alcohol dependence with withdrawal, uncomplicated; E87.1 Hypo-osmolality and hyponatremia; E86.0 Dehydration; K85.20 Alcohol induced acute pancreatitis without necrosis or infection; E87.6 Hypokalemia; F20.9 Schizophrenia, unspecified; J43.9 Emphysema, unspecified; Y90.0 Blood alcohol level of less than 20 mg/100 ml; E83.39 Other disorders of phosphorus metabolism; F32.9 Major depressive disorder, single episode, unspecified; F17.210 Nicotine dependence, cigarettes, uncomplicated; R45.851 Suicidal ideations; I10 Essential (primary) hypertension; G47.00 Insomnia, unspecified; Z91.5 Personal history of self-harm; Z91.14 Patient's other noncompliance with medication regimen; Z79.4 Long term (current) use of insulin

== ENCOUNTER 2017-10-25 13:05 | Emergency (ER) | payer MEDICAID ==
--- NOTE | 2017-10-25 14:39 | RAD ---
Date of service: 10/25/2017 HISTORY: Shortness of breath COMPARISON: 10/05/2017. TECHNIQUE: Chest PA and lateral FINDINGS: LUNGS: No active pulmonary disease. PLEURA: No significant pleural effusion identified. No pneumothorax apparent. CARDIOVASCULAR: No radiographic findings to suggest acute or significant cardiovascular disease. OSSEOUS STRUCTURES: No significant abnormalities. VISUALIZED UPPER ABDOMEN: Normal. OTHER FINDINGS: None. IMPRESSION: No active disease. No significant interval change compared to the prior examination(s).
--- NOTE | 2017-10-25 14:54 | C.PDOC ---
History Of Present Illness 32-year-old AA male, whose PMH includes Bronchitis, Depression, Diabetes, Emphysema, Hypertension, and Pancreatitis, presents to the emergency department with complaints of a non-productive cough, sore throat and shortness of breath ongoing for the past three days. Patient was seen by [facility] where they diagnosed him with Pneumonia, and gave him Zithromax and Tessalon pearls to take at home. Patient states he has been taking medication, but still has cough keeping him awake at night. Patient reports he went to pharmacy to look for another cough medicine, and upon speaking to pharmacist he came to ED for evaluation because the pharmacist stated he should have had blood test and xray. Patient does not report feeling worse since last hospital visit, just complains he still has cough. Additionally patient is a smoker. Presently, patient denies any fever, chills, nausea/vomiting, chest pain or SOB. Time Seen by Provider: 10/25/17 13:57 Chief Complaint (Nursing): Cough, Cold, Congestion History Per: Patient History/Exam Limitations: no limitations Onset/Duration Of Symptoms: Days (3) Current Symptoms Are (Timing): Still Present Sick Contacts (Context): None Past Medical History Reviewed: Historical Data, Nursing Documentation, Vital Signs Vital Signs: Last Vital Signs Temp 99.3 F 10/25/17 15:05 Pulse 80 10/25/17 15:05 Resp 17 10/25/17 15:05 BP 143/91 H 10/25/17 15:05 Pulse Ox 98 10/25/17 15:05 - Medical History PMH: Bronchitis, Depression, Diabetes, Emphysema, HTN, Pancreatitis - [facility] Procedures DETOXIFICATION SERVICES FOR SUBSTANCE ABUSE TREATMENT (05/01/16) EXCISION OF DESCENDING COLON, ENDO, DIAGN (05/01/16) EXTIRPATION OF MATTER FROM LARGE INTESTINE, ENDO (05/01/16) INDIV PSYCHOTHERAPY FOR SUBSTANCE ABUSE TREATMENT, SUPPORT (05/01/16) INDIV PSYCHOTHERAPY FOR SUBSTANCE ABUSE, PSYCHOEDUCATION (05/01/16) INDIVIDUAL PSYCHOTHERAPY, SUPPORTIVE (05/01/16) Family History: States: Unknown Family Hx - Social History Hx Tobacco Use: Yes Hx Alcohol Use: No Hx Substance Use: No - Immunization History Hx Tetanus Toxoid Vaccination: No Hx Influenza Vaccination: No Hx Pneumococcal Vaccination: No Review Of Systems Constitutional: Negative for: Fever Cardiovascular: Negative for: Chest Pain Respiratory: Positive for: Cough, Shortness of Breath. Negative for: Pleuritic Pain, Wheezing Gastrointestinal: Negative for: Nausea, Vomiting Musculoskeletal: Negative for: Back Pain Skin: Negative for: Rash Neurological: Negative for: Weakness, Numbness, Headache Physical Exam - Physical Exam Appears: Non-toxic, No Acute Distress Skin: Normal Color, Warm, Dry, No Rash Head: Atraumatic, Normacephalic Eye(s): bilateral: Normal Inspection Ear(s): Bilateral: Normal (no erythema) Nose: Normal Oral Mucosa: Moist Lips: Normal Appearing Throat: Normal, No Erythema, No Exudate, No Drooling, No Mass Neck: Normal ROM Chest: Symmetrical Cardiovascular: Rhythm Regular, No Murmur Respiratory: Normal Breath Sounds, No Accessory Muscle Use, No Wheezing Extremity: Normal ROM, No Pedal Edema, No Deformity Neurological/Psych: Oriented x3, Normal Speech ED Course And Treatment O2 Sat by Pulse Oximetry: 97 Pulse Ox Interpretation: Normal (RA) - Radiology CXR: Interpreted by Me, Viewed By Me CXR Interpretation: Yes: No Acute Disease, Heart Size (normal). No: Infiltrates , COPD Medical Decision Making Medical Decision Making: Patient with cough nonproductive for 3 days, already on antibiotics. CXR shows no active disease. Patient has no fever, and lungs clear bilaterally with good air entry. No further workup indicated. I advised patient that cough can linger for 1-2 weeks, especially with history of smoking. Crotch Breaker patient on smoking cessation and will prescribe cough syrup Disposition Counseled Patient/Family Regarding: Diagnosis, Need For Followup, Rx Given - Disposition Referrals: Violet Brewer MD [Staff Provider] - Disposition: HOME/ ROUTINE Disposition Time: 15:00 Condition: GOOD Additional Instructions: Rx sent to [facility] Finish your antibiotic and take cough medicine as needed apply cream to affected area on hands Prescriptions: Glycerin/Lanolin/Mineral Oil [Eucerin Intensive Repair Crm] 113 gm TP BID #1 cream..g. Promethazine DM [Phenergan DM Syrup] 10 ml PO Q8 PRN #300 ml PRN Reason: Cough Instructions: Viral Pneumonia (ED) Forms: [facility] (German) - POA Present On Arrival: None - Clinical Impression Clinical Impression: Bronchospasm, Upper respiratory infection - PA / FINANCE AND ADMINISTRATION MANAGER / Resident Statement MD/DO has reviewed & agrees with the documentation as recorded. - Scribe Statement The provider has reviewed the documentation as recorded by the Scribe Gustavo Pinto All medical record entries made by the Sheridanibmarie were at my direction and personally dictated by me. I have reviewed the chart and agree that the record accurately reflects my personal performance of the history, physical exam, medical decision making, and the department course for this patient. I have also personally directed, reviewed, and agree with the discharge instructions and disposition.
[2017-10-25 15:06] VITALS: BP 143/91; PULSE 80; RESP 17; TEMP 99.3
[2017-10-25 18:57] VITALS: O2SAT 97
== END 2017-10-25 15:05 | disposition home or self-care (01) ==
LOC: C.ER 13:05
DX: J98.01 Acute bronchospasm (principal); J06.9 Acute upper respiratory infection, unspecified; E11.9 Type 2 diabetes mellitus without complications; I10 Essential (primary) hypertension; Z72.0 Tobacco use

== ENCOUNTER 2018-06-02 16:55 | Emergency (ER) | payer MEDICAID ==
[2018-06-02 17:02] VITALS: BP 120/77; PULSE 86; RESP 20; TEMP 99.1; O2SAT 100
--- NOTE | 2018-06-02 17:22 | C.PDOC ---
History Of Present Illness 33 y/o male with a prior hx of type 1 diabetes, bronchitis, and pancreatitis, presents to the ED complaining of a cough associated with generalized body aches, chest pain, and SOB for 4 days. The chest pain is only when coughing. He also reports subjective fever and chills. Patient has not tried any OTC meds for cough/cold relief. He otherwise denies any nausea, vomiting, diarrhea, urinary symptoms, or other associated complaints. Time Seen by Provider: 06/02/18 17:06 Chief Complaint (Nursing): Flu-like Symptoms History Per: Patient History/Exam Limitations: no limitations Onset/Duration Of Symptoms: Days (x 4) Current Symptoms Are (Timing): Still Present Location Of Pain: Diffuse Myalgias Associated Symptoms: Fever, Chills, Cough, Nasal Congestion Past Medical History Reviewed: Historical Data, Nursing Documentation, Vital Signs Vital Signs: Last Vital Signs Temp 99.1 F 06/02/18 17:01 Pulse 86 06/02/18 17:01 Resp 20 06/02/18 17:01 BP 120/77 06/02/18 17:01 Pulse Ox 100 06/02/18 17:01 - Medical History PMH: Bronchitis, Depression, Diabetes, Emphysema, HTN, Pancreatitis Denies: Alzheimer's Disease, Anemia, Anxiety, Arthritis, Asthma, Atrial Fibrillation, Bipolar Disorder, Cardia Arrhythmia, CHF, COPD, Crohn's Disease, Dementia, Diverticulitis, Fractures, Gastritis, Gall Bladder Disease, Hepatitis, HIV, Hypercholesterolemia, Hyperthyroidism, Hypothyroidism, Kidney Stones, Migraine, Mitral Valve Prolapse, Multiple Sclerosis, Osteoporosis, Paranoia, Parkinson's Disease, Peripheral Edema, Pneumonia, Post Traumatic Stress Disorder, Pulmonary Embolism, Chronic Kidney Disease, Rheumatoid Arthritis, Schizophrenia, Seizures, Sickle Cell Disease, Sexually Transmitted Disease, Sleep Apnea, TIA Surgical History: Denies: Appendectomy, CABG, Carotid Endarterectomy, Cholecystectomy, Coronary Stent, Pacemaker, Tonsillectomy - [facility] [facility] Procedures DETOXIFICATION SERVICES FOR SUBSTANCE ABUSE TREATMENT (02/03/18) EXCISION OF DESCENDING COLON, ENDO, DIAGN (05/01/16) EXTIRPATION OF MATTER FROM LARGE INTESTINE, ENDO (05/01/16) INDIV PSYCHOTHERAPY FOR SUBSTANCE ABUSE TREATMENT, SUPPORT (05/01/16) INDIV PSYCHOTHERAPY FOR SUBSTANCE ABUSE, PSYCHOEDUCATION (05/01/16) INDIVIDUAL PSYCHOTHERAPY, SUPPORTIVE (05/01/16) Family History: States: Unknown Family Hx - Social History Hx Tobacco Use: Yes Hx Alcohol Use: No Hx Substance Use: Yes - Immunization History Hx Tetanus Toxoid Vaccination: No Hx Influenza Vaccination: No Hx Pneumococcal Vaccination: No Review Of Systems Constitutional: Positive for: Fever, Chills, Other (Body aches) ENT: Positive for: Nose Congestion Cardiovascular: Positive for: Chest Pain Respiratory: Positive for: Cough, Shortness of Breath. Negative for: Pleuritic Pain Gastrointestinal: Negative for: Nausea, Vomiting, Abdominal Pain, Diarrhea Genitourinary: Negative for: Dysuria, Hematuria Skin: Negative for: Rash Neurological: Negative for: Weakness, Numbness, Headache, Dizziness Physical Exam - Physical Exam Appears: Non-toxic, No Acute Distress Skin: Normal Color, Warm, Dry Head: Atraumatic, Normacephalic Eye(s): bilateral: Normal Inspection Oral Mucosa: Moist Throat: Normal (Pharynx clear, uvula midline), No Erythema, No Exudate Neck: Normal ROM Chest: Symmetrical, No Tenderness Cardiovascular: Rhythm Regular, No Murmur Respiratory: Normal Breath Sounds, No Rales, No Rhonchi, No Wheezing Gastrointestinal/Abdominal: Soft, No Tenderness, No Distention Extremity: Bilateral: Atraumatic, Normal Color And Temperature Neurological/Psych: Oriented x3 ED Course And Treatment O2 Sat by Pulse Oximetry: 100 (RA) Pulse Ox Interpretation: Normal Medical Decision Making Medical Decision Making: Impression: Influenza-like illness Plan: - 60 mg PO Sudafed - 30 mg IM Toradol Disposition - Disposition Referrals: [facility] [Outside] [facility] [Outside] [facility] [Outside] Disposition: HOME/ ROUTINE Disposition Time: 17:45 Condition: IMPROVED Prescriptions: Azithromycin [Zithromax] 250 mg PO DAILY #6 tab Ibuprofen [Motrin] 600 mg PO Q6 5 Days #20 tab Pseudoephedrine HCl [Sudafed] 30 mg PO Q8 #15 tablet Instructions: Flu, Acute Bronchitis, Adult (DC) Forms: [facility] (Kyrgyz) - Clinical Impression Clinical Impression: Influenza-like illness, Bronchitis - Scribe Statement The provider has reviewed the documentation as recorded by the Sheridanibmarie Arellano Provider Attestation: All medical record entries made by the Sheridanibmarie were at my direction and personally dictated by me. I have reviewed the chart and agree that the record accurately reflects my personal performance of the history, physical exam, medical decision making, and the department course for this patient. I have also personally directed, reviewed, and agree with the discharge instructions and disposition.
== END 2018-06-02 17:45 | disposition home or self-care (01) ==
LOC: C.ER 16:55
DX: J11.1 Influenza due to unidentified influenza virus with other respiratory manifestations (principal); I10 Essential (primary) hypertension; E10.9 Type 1 diabetes mellitus without complications; Z87.891 Personal history of nicotine dependence
CPT/HCPCS: 96372; 99283; J1885